=== PATIENT | female | born 1980 | race African-American/Black ===

== ENCOUNTER 2024-09-14 08:10 | Outpatient (CLI) | payer OTHER, SELFPAY ==
--- NOTE | ~2024-09-14 | MM_ITS ---
EXAMINATION: MM screening fabiola BI w yasmeen HISTORY: Screening TECHNIQUE: Craniocaudal and mediolateral oblique 3-D tomosynthesis images were obtained and synthetic 2-D images were generated. CAD analysis was submitted and interpreted. COMPARISON: No prior mammogram is available for comparison at this institution. BREAST PARENCHYMAL COMPOSITION: Dense: The breasts are heterogeneously dense, which may obscure small masses FINDINGS: There is a focal asymmetry in the lower central aspect of the right breast, middle third. T here is no mammographic evidence for malignancy in the left breast. IMPRESSION: 1. Focal asymmetry of the right breast. 2. Additional mammographic views and possible breast ultrasound are recommended. BI-RADS Category 0: Incomplete: Needs additional imaging evaluation. Reviewed, dictated and finalized at location [] S ETCHER IMPRESSION: 1. Focal asymmetry of the right breast. 2. Additional mammographic views and possible breast ultrasound are recommended . BI-RADS Category 0: Incomplete: Needs additional imaging evaluation.
--- OUTSIDE RECORDS SUMMARY | 2024-09-14 08:30 | XMS_ITS | Clinical Summary ---
Author Organization [facility] Address [address] [place] [address] Care Team Providers Care Emergency Department Director Name Role Phone Ye Hargrove MD Primary Care Provider Allergies No known active allergies Medications medroxyPROGEST ERone 150 mg/mL injection Inject 1 ml (150 mg) intramuscularly every 3 months 06/16/20 13 Active cromolyn (OPTICROM) 4 % ophthalmic solution INSTILL 1 DROP IN LEFT EYE FOUR TIMES DAILY FOR 1 WEEK Active HYDROcodone-ac etaminophen (NORCO) 5-325 mg per tablet TAKE 1 TAB PO Q 6HRS PRN PAIN Active metroNIDAZOLE (Vandazole) 0.75 % (37.5mg/5 gram) vaginal gel Active oxyCODONE-acet aminophen (PERCOCET) 5-325 mg per tablet Active penicillin v potassium (VEETID) 500 mg tablet Active acetaminophen- codeine (TYLENOL with CODEINE #3) 300-30 mg per tablet Take 1-2 tablets by mouth every 6 (six) hours as needed for pain 30 tablet 07/02/20 23 Active Active Problems Problem Noted Date Diagnosed Date Ganglion of wrist, right 06/16/2023 Excessive cerumen in ear canal 06/15/2023 Palpitations 06/15/2023 Cyst of both breasts 06/10/2023 Ganglion of right wrist 05/26/2023 Right wrist pain 05/26/2023 Bunion 12/17/2020 Hammer toe 12/17/2020 Foot pain 12/17/2020 Degenerative joint disease of hand 03/06/2020 High serum creatinine 03/06/2020 Genital herpes simplex 02/19/2018 Candidiasis of vagina 02/16/2018 Goiter 07/15/2017 Chest pain, unspecified 06/16/2013 Surgical History Surgery Date Site/Laterality Comments FOOT SURGERY Right bunyion with pins screws and wires SECTION WRIST MASS EXCISION 07/02/2023 Left Medical History Medical History Date Comments Heart murmur Miscarriage Social History Tobacco Use Types Packs/Day Years Used Date Smoking Tobacco: Never Smokeless Tobacco: Never AUDIT-C Answer Date Recorded Q1: How often do you have a drink containing alc ohol? 2-3 times a week 07/02/2023 Q2: How many drinks containi ng alcohol do you have on a typical day when you are drinking? 1 or 2 07/02/2023 Q3: How often do you have si x or more drinks on one occasion? Never 07/02/2023 Personal Safety Answer Date Recorded Have you ever been in or are you currently in a harmful physical or emotional relationship or is someone making you feel afraid or unsafe? 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 Gender Identity Not on file Sexual Orientation Not on file Obstetrics History Last Filed Vital Signs Vital Sign Reading Time Taken Comments Blood Pressure 130/92 07/02/2023 1:00 PM CNC MACHINE OPERATOR Pulse 82 07/02/2023 1:00 PM CNC MACHINE OPERATOR Temperature 36.8 C (98.3 F) 07/02/2023 12:30 PM CNC MACHINE OPERATOR Respiratory Rate 18 07/02/2023 1:00 PM CNC MACHINE OPERATOR Oxygen Saturation 97% 07/02/2023 1:00 PM CNC MACHINE OPERATOR Inhaled Oxygen Concentration - - Weight 64 kg (141 lb) 07/02/2023 8:44 AM CNC MACHINE OPERATOR Height 162.6 cm (5' 4 ) 07/02/2023 8:44 AM CNC MACHINE OPERATOR Body Mass Index 24.2 07/02/2023 8:44 AM CNC MACHINE OPERATOR Plan of Treatment Health Maintenance Due Date Last Done Comments Breast Cancer Screening-Mammogram 1979 Cervical Cancer Screening 1979 Colon Cancer Screening-Colonoscopy 1979 Depression Screening 1979 Hepatitis C Screening 1979 Hepatitis B Screening 1997 Regular Well Visit/Exam 18-64 1997 HPV Vaccines (2 - 3-dose SCDM series) 07/06/2018 06/08/2018 Covid-19 Vaccine ( season) 2024 01/28/2021, 01/01/2021 Influenza Vaccine (#1) 2024 3, 05/15/2021, 04/23/2020, Additional history exists DTaP/Tdap/Td Vaccine (5 - Td or Tdap) 09/14/2025 09/14/2015, 07/04/1988, 10/27/1986, Additional history exists Pneumococcal vaccine <65 Aged Out No longer eligible based on patient's age to complete this topic Insurance [facility] Care Teams Emergency Department Director Relationship Specialty Start Date End Date Ye Hargrove MD [address] [place] [address] PCP - General Internal Medicine 05/01/23
--- OUTSIDE RECORDS SUMMARY | 2024-09-14 08:30 | XMS_ITS | Data Portability ---
Author Organization [facility], Main Office Address [address] [place] [address] Care Team Providers Care Welder Apprentice Combination Name Role Phone DENISE GARCIA Primary Care Provider [phone] DENISE GARCIA Referring Provider [phone] Assessment Encounter Date Assessment Date Assessment LastModified by Organization Details LastModified Time 06/11/2023 06/11/2023 breast ultrasound were cysts around both breast right breast with slightly complex cyst. Do not suspect malignancy at this time. We will repeat ultrasound in 6 months to evaluate for growth and or changes [email or web address] Not available 06/11/2023 11:34:27 Plan of Treatment Reminders Order Date Submit Date Provider Last Modified By Organization Details Last Modified Time Details Appointments None record ed. Lab None record ed. Referral None record ed. Procedures None record ed. Surgeries None record ed. Imaging None record ed. Medication Orders None record ed. Patient TargetsNo targets recorded. Patient InstructionsNo instructions recorded. Reason for Referral None Reported. Results Created Date Observation Date Name Description Value Unit Range Abnormal Flag Note LastModifiedBy Organization Detail LastModifiedTime 05/31/2005/31/2021 URINE HCG QUAL/ POINT OF CARE ur preg negati ve TESTI NG PERFO RMED BY SURGI DEYSI SERVI TE PERSO NNEL. Not Available [facility] (Lab) [address] [place], [address], 05/31/2021 09:44:34 05/31/20 21 05/31/2021 URINE HCG QUAL/ POINT OF CARE lot no. [id number] Not Available [facility] (Lab) [address] [place], [address], 05/31/2021 09:44:34 05/31/20 21 05/31/2021 URINE HCG QUAL/ POINT OF CARE pos QC positi ve Not Available [facility] (Lab) [address] [place], [address], 05/31/2021 09:44:34 05/31/20 21 05/31/2021 URINE HCG QUAL/ POINT OF CARE neg QC negati ve Not Available [facility] (Lab) [address] [place], [address], 05/31/2021 09:44:34 06/17/20 21 07/02/2021 XR, foot, 3 or more view No observ ation record ed. [id number] [facility] [address], [address], [address], 10/01/2022 06:05:27 07/01/20 21 07/01/2021 XR, foot, 3 or more view No observ ation record ed. [id number] [facility] [address], [facility], [place], [address], 10/01/2022 06:05:27 07/15/20 21 07/15/2021 XR, foot, 3 or more view No observ ation record ed. [id number] [facility] [address], [facility], [place], [address], 10/01/2022 06:05:27 08/05/19 22 08/05/2021 XR, foot, 3 or more view No observ ation record ed. [id number] [facility] [address], [facility], [place], [address], 10/01/2022 06:05:27 Result Notes None recorded. Problems Name Problem SNOMED Code Status Onset Date Resolution Date Notes Provider Name and Address Organization Details Recorded Time Hammer toe 454125903 Active 2020 Not Available [facility] 3 05:58:39 Postoperat darrell visit 826924054 Active 2020 Not Available [facility] 3 05:58:39 Bunion 579439458 Active 2020 Not Available [facility] 3 05:58:39 Foot pain 18901027 Active 2020 Not Available [facility] 3 05:58:39 Cyst of left breast 1038068047925 9101 Active 2022 Mark gonsales MD [address], [address] , [employer] 3 12:58:38 Bilateral cyst of breasts 8254220176051 9102 Active 2022 Mark gonsales MD [address], [address] , [employer] 3 12:59:11 Problem Notes None recorded. Procedures Surgical History Date Name Laterality Status Provider Name and Address Organization Details Recorded Time section completed Katheryn Finnegan MA [employer] 06/11/2023 10:40:19 excision of bunion completed Katheryn Finnegan MA [facility] 06/11/2023 10:40:38 Imaging Results Imaging Date Name Status LastModified by Organiz ation Details LastModified Time 07/02/2021 XR, foot, 3 or more view completed [id number] 26 [facility] [address] [address], [place], [address], 10/01/2022 06:05:27 07/01/2021 XR, foot, 3 or more view completed [id number] [facility] [address] [address], [place], [address], 10/01/2022 06:05:27 07/15/2021 XR, foot, 3 or more view completed [id number] 26 [facility] [address], [facility], [place], [address], 10/01/2022 06:05:27 08/05/2021 XR, foot, 3 or more view completed [id number] [facility] [address], [facility], [place], [address], 10/01/2022 06:05:27 Procedure Notes None recorded. Medical Equipment None Reported. Allergies No known drug allergies Medications Name Sig Start Date Stop Date Status Note LastModified by Organization Details LastModified Time cyclobenzap rine 10 mg tablet 12/17 completed Not Available Not Available Not Available hydrocodone 5 mg-acetamin ophen 325 mg tablet TAKE 1 TAB PO Q 6HRS PRN PAIN active Not Available Not Available No t Available cromolyn 4 % eye drops INSTILL 1 DROP IN LEFT EYE FOUR TIMES DAILY FOR 1 WEEK active Not Available Not Available No t Available penicillin V potassium 500 mg tablet active Not Available Not Available Not Available sulfamethox azole 800 mg-trimetho prim 160 mg tablet 12/17 completed Not Available Not Available Not Available oxycodone-a cetaminophe n 5 mg-325 mg tablet active Not Available Not Available No t Available medroxyprog esterone 150 mg/mL intramuscul ar suspension Inject 1 ml (150 mg) intramusc ularly every 3 months active Not Available Not Available No t Available naproxen 500 mg tablet 12/17 completed Not Available Not Available Not Available Vandazole 0.75 % (37.5 mg/5 gram) vaginal gel active Not Available Not Available Not Available Vitals Date Recorded Body mass index (BMI) Body mass index (BMI) Body mass index (BMI) Body height Body height Body height Body height Heart rate Heart rate Heart rate Heart rate Body weight Body weight Body weight Systolic blood pressure Diastolic blood pressure Systolic blood pressure Diastolic blood pressure Systolic blood pressure Diastolic blood pressure Systolic blood pressure Diastolic blood pressure Provider Name and Address Organization Details Last Updated DateTime 3 23.2 kg/m2 23.2 kg/m2 23.2 kg/m2 162.56 cm 162.56 cm 162.56 cm 162.56 cm 69 /min 71 /min 76 /min 89 /min 16866.9 7 g 11420.9 7 g 41541.9 7 g 122 mm[Hg] 84 mm[Hg] 137 mm[Hg] 86 mm[Hg] 126 mm[Hg] 83 mm[Hg] 136 mm[Hg] 88 mm[Hg] Not Available [facility] 3 05:57:45 Date Recorded Body height Body mass index (BMI) Body weight Provider Name and Address Organization Details Last Updated DateTime 06/11/2023 157.48 cm 25.2 kg/m2 72884.75 g Katheryn Finnegan MA [employer] 06/11/2023 10:45:54 Date Recorded Respiratory rate Heart rate Body temperature Oxygen saturation Oxygen saturation in Arterial blood by Pulse oximetry Systolic blood pressure Diastolic blood pressure Provider Name and Address Organization Details Last Updated DateTime 3 14 /min 72 /min 97.7 [degF] 98 % 98 % 160 mm[Hg] 90 mm[Hg] Montserrat Garduno [employer] 3 11:10:57 Social History Question Answer Notes LastModified by Organizat ion Details LastModified Time Tobacco Smoking Status Never Smoker Not Available [facility] 10/01/2022 05:53:19 What Is Your Level Of Alcohol Consumption? None [id number] Information not available 10/01/2022 What Is Your Level Of Caffeine Consumption? Occasional Information not available 06/11/2023 What Type Of Diet Are You Following? REGULAR Information not available 06/11/2023 Are There Any Guns Present In Your Home? No Information not available 06/11/2023 How Many Children Do You Have? 2 Information not available 06/11/2023 What Is Your Relationship Status? Single Information not available 06/11/2023 Do You Have Smoke And Carbon Monoxide Detectors In Your Home? Yes Information not available 06/11/2023 Are You Passively Exposed To Smoke? No [place] [address] Information no t available 06/11/2023 Do You Use Any Illicit Or Recreational Drugs? No [place] [address] Information not available 06/11/2023 Do You Use Sunscreen Routinely? No [facility] Information not available 06/11/2023 Do You Have Any Dietary Restrictions? No [place] [address] Information not available 06/11/2023 Sex: Unknown Functional Status Question Answer Note LastModified by Organizat ion Details LastModified Time What is your exercise level? Occasional [facility] Information not available 06/11/2023 Mental Status None recorded. Family History Relationship Description Onset Age of this Age Resolved Age Notes LastModified by Organization Details LastModified Time Maternal Grandmother Diabetes mellitus [place] [id number] Not available 2022 10:43:20 Maternal Aunt Carcinoma in situ of colon [facility] Not available 2022 10:44:12 Medical History Condition Response ARTHRITIS Y Gynecological HistoryNo gynecological history recorded. Obstetrics History GPAL:G 0 P 0 0 0 0 Past Encounters Encounter ID Performer Location Encounter Start Date Encounter Closed Date Diagnosis/Indication Diagnosis SNOMED-CT Code Diagnosis ICD10 Code Diagnosis Note [id number] [facility] [place] [address] [place] [address], [address] [address] 12/17/2020 00:00:00 12/17/2020 12:04:06 [id number] [facility] [address] [place] [address], [address] [address] 01/10/2021 00:00:00 01/10/2021 11:57:50 [id number] [facility] [place] [address] [place] [address], [address] [address] 01/31/2021 00:00:00 02/17/2021 20:08:05 [id number] [facility] [place] [address] [place] [address], [address] [address] 05/06/2021 00:00:00 05/13/2021 07:11:51 [id number] _ATHENA_M IGRATION_ DEFAULT_1 _1 , 06/03/2021 00:00:00 06/03/2021 15:08:12 [id number] [facility] [place] [address], [facility] [address] [place] [address] 06/10/2021 00:00:00 06/10/2021 10:39:43 [id number] [facility] [place] [address], [facility] [address] [place] [address] 06/17/2021 00:00:00 07/02/2021 20:27:44 [id number] [facility] [place] [address], [facility] [address] [place] [address] 07/01/2021 00:00:00 07/01/2021 10:26:20 [id number] [facility] [place] [address], [address] [address] 07/15/2021 00:00:00 07/15/2021 10:08:21 [id number] [facility] [place] [address], [facility] [address] [place] [address] 08/05/2021 00:00:00 08/05/2021 12:15:27 [id number] Mark gonsales MD [facility] [address] [facility], [address] [address] 06/11/2023 10:35:35 06/11/2023 14:47:46 Bilateral cyst of breasts 9274365309 4941347 N60.01 N60.02 Health Concerns Section Related Observation LastModified by Organization Detai ls LastModified Time None Recorded Concern Status LastModified by Organization Details LastModified Time None Recorded Advance Directives Directive None Recorded Payers Encounter Date Sequence Insurance Name Policy Number Policy Crawley Covered Member ID Crawley Member ID Guarantor Name 06/11/2023 1 [facility] (MEDICAID HMO) [id number] Angie Shah [id number] Angie Shah Notes Date Note Type Note Provider Name and Address Organization Details Recorded Time 06/11/2023 text/html patient referred by primary care physician for presumably abnormal breast ultrasound and or mammogram. Patient denies any lumps or bumps. Denies any family history of breast cancer. Denies any previous biopsies. Denies any breast pain Mark Hernandez MD [address] [address], [place], [address], [facility] 06/11/2023 12:59:29 OBGyn Episode No OBEpisode recorded.
--- OUTSIDE RECORDS SUMMARY | 2024-09-14 08:30 | XMS_ITS | CONTINUITY OF CARE DOCUMENT ---
Author Name nicolas valenzuela Address Unknown Organization [facility] Address [address] [facility] [address] [place] [address] Phone [phone] Care Team Providers Care Ribbon Hand Name Role Phone James Preston MD Unavailable DENISE GARCIA MD Unavailable [phone] DENISE GARCIA MD Unavailable PROBLEMS Condition Status Date Provider Notes Family History of Sudden Cardiac : active ? James Preston MD Family History of CVA or Stroke: active ? Janine Preston MD PALPITATIONS active ? James Preston MD HISTORY OF DRUG ABUSE- OCCASSIONAL POT active ? James Presotn MD CHEST PAIN UNSPECIFIED active James Preston MD ENCOUNTERS Date Type Provider Location Encounter Diag nosis - In-person encounter Office Visit James Preston MD [facility] - In-person encounter Office Visit James Preston MD [facility] Family History of CVA or Stroke:Family History of Sudden Cardiac : - In-person encounter Office Visit James Preston MD [facility] CHEST PAIN UNSPECIFIEDHISTORY OF DRUG ABUSE- OCCASSIONAL POTPALPITATIONS VITAL SIGNS Date Observation Value Provider Body Mass Index (Ratio) 21.16 kg/m2 Bailey Preston MD blood pressure, diastolic 91 mm[Hg] Jonny Stuart blood pressure, systolic 137 mm[Hg] Ashia Stuart oxygen saturation, oximetry 97 % Mars Stuart respiratory rate E&M 18 /min Sarah Beth Stuart pulse rate 60 /min Mars paul weight E&M 127.2 [lb_av] Mars raza height E&M 65 [in_i] Mars paul Body Mass Index (Ratio) 20.47 kg/m2 Bailey Preston MD blood pressure, cuff size regular Ke rri Demi blood pressure, diastolic 94 mm[Hg] Ke rri Demi blood pressure, systolic 132 mm[Hg] Cherelle ri Demi oxygen saturation, oximetry 98 % Monse Simms respiratory rate E&M 16 /min Monse Anthony hall pulse rate 64 /min Monse Dominga christineer weight E&M 123 [lb_av] Monse Dominga christineer height E&M 65 [in_i] Monse Dominga christineer blood pressure, diastolic 84 mm[Hg] Ta carter Stolya blood pressure, systolic 114 mm[Hg] Lundy alem Stueber Body Mass Index (Ratio) 22.55 kg/m2 Mccormick i Demi blood pressure, diastolic 97 mm[Hg] Ke rri Demi blood pressure, systolic 136 mm[Hg] Cherelle ri Demi pulse rate 69 /min Monse Nenae emmetter oxygen saturation, oximetry 99 % Monse Demi respiratory rate E&M 15 /min Monse G isabel weight E&M 135 [lb_av] Monse Dominga christineer height E&M 65 [in_i] Monse Orr lder ALLERGIES No Known Drug Allergies RESULTS Date Observation Value Provider Reference Range Interpretation Location thyroid stimulating hormone, serum 0.500 u[IU]/[facility] platelet count 221 10*3/mm3 [facility] hematocrit, blood 40.7 % [facility] triglyceride, serum, fasting 40 mg/dL [facility] HDL cholesterol, serum 57 mg/dL [facility] lipoprotein, beta, serum, point, quantitative, calculated 77 mg/dL [facility] cholesterol, serum 142 mg/dL [facility] alanine aminotransferase (SGPT), serum 8 1/L [facility] aspartate aminotransferase (SGOT), serum 16 1/L [facility] creatinine, serum 0.91 mg/dL [facility] Chaitanya potassium, serum 4.6 mmol/L [facility] sodium, serum 140 mmol/L [facility] HISTORY OF MEDICATION USE Medication Status Instructions Dates Provider Indications Com ments DEPO-PROVERA 150 MG/ML INTRAMUSCULAR SUSPENSION active once every 3 months Monse Simms SOCIAL HISTORY Date Observation Value Provider social history reviewed E&M revi ewed - no changes required James Preston MD physical exercise, f requency, days per week yes Mars Stuart alcohol use no Mars paul caffeine use, averag e drinks per day yes Mars Stuart drug use no Mars paul passive cigarette sm riley exposure no Mars Stuart smoking status Never smoker Mars Correia number of grandchildren James Preston MD U deandra Preston MD social history reviewed E&M revi ewed - no changes required James Preston MD physical exercise, f requency, days per week yes Monse Simms alcohol use no Monse Orr lder caffeine use, averag e drinks per day yes Monse Rowlandmargobernierosa elenaed drug use no Monse Orr lder passive cigarette sm riley exposure no Monse Simms smoking status Never smoker Monse hoover smoking status never Ashleigh Lopez physical exercise, f requency, days per week yes James Preston MD social history E&M Marital Statu s: Single h ousekeeping James Preston MD caffeine use, averag e drinks per day yes Artem Jackson RN social history reviewed E&M reviewed Artem Jackson RN drug use no Monse Rowlandmargoshaina laura passive cigarette sm riley exposure no Monse Rowlandfrida smoking status never smoker Monse Dwight hoover FUNCTIONAL STATUS Date Observation Value Provider periodic limb movement index absent (0) James Preston MD MENTAL STATUS Date Observation Value Provider assessment of judgme nt and insight E&M Alert and oriented to time, place and person. Mood and affect are normal. Artem Jackson RN FAMILY HISTORY Family Member Condition Father Family History Unkno wn Mother Family History of Arevalo dden Cardiac : Mother Family History of CV A or Stroke: INSURANCE PROVIDERS Payer name Policy type / Coverage type [facility] ID HEALTHCARE AND FAMILY SERVICES Medicaid 0 [id number] ADVANCE DIRECTIVES Name Date DISCUSSED - NO DECISION MADE TREATMENT PLAN Date Name Performer Cardiology James Preston MD Cardiology:Holter wa s benign, and echo showed no significant abnormality. She is working at reducing her stress, which I think is the best option. James Preston MD Cardiology Follow up :Will do holter and echo and will try to obtain labs from Dr. Garcia's office. James Preston MD Cardiology Follow up :Has stoppe d James Preston MD New Patient: B P today: 136/97 Prior BP: / () b p at dr garcia's office was 132/70 James Preston MD New Patient: O rders: E KG ([id number]) BP today: 136/97 Prior BP: / () James Preston MD Date Name Complete Echo Holter Monitor 24 Hr Complete Echo STR - Routine HISTORY OF PROCEDURES Procedure Date Procedure Name Provider Procedure Notes S tatus SNOMED-CT: 60794760 Physical Exam, Performed: Pulse Exam of Foot James Preston MD completed SNOMED-CT: 671439166 352378 Current Medications Documented James Preston MD completed ZIO Holter Hookup Jaems Preston MD co mpleted SNOMED-CT: 81859816 Physical Exam, Performed: Pulse Exam of Foot James Preston MD completed EKG James Preston MD completed SNOMED-CT: 850854419 101636 Current Medications Documented James Preston MD completed EKG James Preston MD completed
--- OUTSIDE RECORDS SUMMARY | 2024-09-14 08:30 | XMS_ITS | Referral Summary ---
Author Organization [facility] Address [address] [place] [address] Care Team Providers Care Plant Technician Name Role Phone Ye Hargrove MD Primary [...] 02/16/2018 Goiter 07/15/2017 Chest pain, unspecified 06/16/2013 Social History Tobacco Use Types Packs/Day Years [...] on file Legal Sex Female 8:53 PM [employer] Gender Identity Not on file Sexual Orientation Not on file Last Filed Vital Signs Vital Sign Reading Time Taken Comments Blood Pressure 130/92 07/02/2023 1:00 PM [employer] Pulse 82 07/02/2023 1:00 PM [employer] Temperature 36.8 C (98.3 F) 07/02/2023 12:30 PM [employer] Respiratory Rate 18 07/02/2023 1:00 PM [employer] Oxygen Saturation 97% 07/02/2023 1:00 PM [employer] Inhaled Oxygen Concentration - - Weight 64 kg (141 lb) 07/02/2023 8:44 AM [employer] Height 162.6 cm (5' 4 ) 07/02/2023 8:44 AM [employer] Body Mass Index 24.2 07/02/2023 8:44 AM [employer] Plan of Treatment Not on file Insurance [facility] Care Teams Plant Technician Relationship Specialty Start Date End Date Ye Hargrove MD [phone] [id number] PCP - General Internal Medicine 05/01/23
--- OUTSIDE RECORDS SUMMARY | 2024-09-14 08:30 | XMS_ITS | Data Portability ---
Author Organization [facility] SRIRAMUche Lam Address [address] [place] [address] Care Team Providers Care Customer Engagement Representative Name Role Phone ELISABETH BRAMBILA Corporate Health Consultant SOBEIDA ROGER Auto Service Advisor Unavailable YE GARCIA Primary Care Provider [phone] Assessment Encounter Date Assessment Date Assessment LastModified by Organization Details LastModified Time 05/19/2024 05/19/2024 44 yr old here for depot shot, no acute concerns or complaints augabi Not available 05/24/2024 15:27:55 Plan of Treatment Reminders Order Date Submit Date Provider Last Modified By Organization Details Last Modified Time Details Appointments ANY 15 2024 10:00A M Ye Garcia MD Not available Not available Not available NURSE ONLY 2024 08:45A M Unassigned Not available Not available Not available Lab HbA1c (hemogl obin A1c), blood 2023 024 [facility], [address] [place] [address], [address], [place], [address], 12/02/2023 06:18:32 pregnan cy test, urine 2023 024 [email or web address] In-Office Order, Internal Use Only DO Not Attach Compendium DO Not Attach Compendium, Do Not Delete/merge, [id number] 05/23/2024 07:50:27 pregnan cy test, urine 2024 025 [email or web address] In-Office Order, Internal Use Only DO Not Attach Compendium DO Not Attach Compendium, Do Not Delete/merge, [id number] 08/12/2024 12:38:31 HbA1c (hemogl obin A1c), blood 2024 025 [facility], [address], [address], [place], [address], 09/01/2024 08:23:49 CMP, serum or plasma 2024 025 [facility], [address], [address], [place], [address], 09/01/2024 08:23:47 CBC w/ auto diff 2024 025 [facility], [address], [address], [place], [address], 09/01/2024 08:23:52 lipid panel, serum 2024 025 [facility], [address], [address], [place], [address], 09/01/2024 08:23:46 vitamin D, 25-hydr oxy, total, serum 2024 025 [facility], [address], [address], [place], [address], 09/01/2024 08:23:53 urinaly sis, complet e 2024 025 [facility], [address], [address], [place], [address], 09/01/2024 08:23:51 Referral None recorde d. Procedures None recorde d. Surgeries None recorde d. Imaging US, breast, unilate ral - Bilater al cysts 2023 024 [facility]), [address] [place], [address], 01/26/2024 11:07:13 MAMMO, screeni ng, tony darrin - Screeni ng MMG, please. Hx of tony darrin duffy ated breast cysts [address] [facility], [address], [place] [address], [place], [address], 09/12/2024 12:26:06 Medication Orders medroxy progest erone 150 mg/mL intramu scular syringe 2023 024 [place] [address] [facility], [address] [place] [address], [id number], 02/25/2024 05:52:07 medroxy progest erone 150 mg/mL intramu scular suspens ion 2023 024 [facility], [address] [place] [address], [id number], 08/11/2024 09:44:31 medroxy progest erone 150 mg/mL intramu scular syringe 2024 025 [email or web address] [facility], [address] [place] [address], [id number], 08/12/2024 12:38:31 Patient TargetsNo targets recorded. Patient Instructions Encounter Date Encounter Id Patient Instructions Last Modified By Organization Details Last Modified Time 12/01/2023 [id number] prediabetes: car e instructions oajao Not available 12/01/2023 10:13:[address] Workman DM diet Follow up in 6 months and PRN oaterrello Not available 12/01/2023 10:14:44 05/19/2024 [id number] On the date of this encounter, I was immediately available to assist the resident/fellow in the care of the patient, and have reviewed and agree with the resident s findings and plan of care. ~MD Cher [facility] Not available 05/29/2024 19:55:15 08/12/2024 [id number] Labs MMG at [facility] in ~ 6 weeks oajao Not available 08/12/2024 12:40:34 Reason for Referral None Reported. Results Created Date Observation Date Name Description Value Unit Range Abnormal Flag Note LastModifiedBy Organization Detail LastModifiedTime 11/23/19 24 11/23/2023 pregn essence test, urine HCG negati ve Not Available In-Office Order Internal Use Only DO Not Attach Compendium DO Not Attach Compendium, Do Not Delete/merge, [id number] 11/23/2023 11:05:01 12/01/19 24 12/02/2023 HEMOG LOBIN A1C hemoglobin A1C 5.9 % 4.8-5. 6 above high normal Predi abete s: 5.7 - 6.4 Diabe fatimah: >6.4 Glyce rosario contr ol for adult s with diabe fatimah: <7.0 Not Available [facility] ([facility]) [address] [facility], [place], [address], 12/02/2023 06:18:32 05/19/20 24 05/19/2024 pregn essence test, urine HCG negati ve Not Available In-Office Order Internal Use Only DO Not Attach Compendium DO Not Attach Compendium, Do Not Delete/merge, [id number] 05/19/2024 10:30:41 08/11/19 25 08/11/2024 pregn essence test, urine HCG negati ve Not Available In-Office Order Internal Use Only DO Not Attach Compendium DO Not Attach Compendium, Do Not Delete/merge, [id number] 08/11/2024 10:06:05 08/31/19 25 09/01/2024 LIPID PANEL cholesterol, total 126 mg/dL 100-19 9 Not Available [facility] ([facility]) [address] [facility], [place], [address], 09/01/2024 08:23:46 08/31/19 25 09/01/2024 LIPID PANEL triglyceride s 67 mg/dL 0-149 Not Available [facility] ([facility]) [address] [facility], [place], [address], 09/01/2024 08:23:46 08/31/19 25 09/01/2024 LIPID PANEL HDL cholesterol 38 mg/dL >39 below low normal Not Available [facility] ([facility]) [address] [place], [address], 09/01/2024 08:23:46 08/31/19 25 09/01/2024 LIPID PANEL VLDL cholesterol maria guadalupe 14 mg/dL 5-40 Not Available [facility] ([facility]) [address] [place], [address], 09/01/2024 08:23:46 08/31/19 25 09/01/2024 LIPID PANEL LDL chol calc ([facility]) 74 mg/dL 0-99 Not Available [facility]) [address] [place], [address], 09/01/2024 08:23:46 08/31/19 25 09/01/2024 COMP. METAB OLIC PANEL (14) glucose 88 mg/dL 70-99 Not Available [facility] ([facility]) [address] [place], [address], 09/01/2024 08:23:47 08/31/19 25 09/01/2024 COMP. METAB OLIC PANEL (14) BUN 11 mg/dL 6-24 Not Available [facility] ([facility]) [address] [place], [address], 09/01/2024 08:23:47 08/31/19 25 09/01/2024 COMP. METAB OLIC PANEL (14) creatinine 1.23 mg/dL 0.57-1 .00 above high normal Not Available [facility] ([facility]) [address] [place], [address], 09/01/2024 08:23:47 08/31/19 25 09/01/2024 COMP. METAB OLIC PANEL (14) eGFR 55 mL/mi n/1.7 3 >59 below low normal Not Available [facility] ([facility]) [address], [place], [address], 09/01/2024 08:23:47 08/31/19 25 09/01/2024 COMP. METAB OLIC PANEL (14) BUN/creatini ne ratio 9 9-23 Not Available [facility] ([facility]) [address], [place], [address], 09/01/2024 08:23:47 08/31/19 25 09/01/2024 COMP. METAB OLIC PANEL (14) sodium 140 mmol/ L 134-14 4 Not Available [facility] ([facility]) [address] [facility], [place], [address], 09/01/2024 08:23:47 08/31/19 25 09/01/2024 COMP. METAB OLIC PANEL (14) potassium 4.6 mmol/ L 3.5-5. 2 Not Available [facility] ([facility]) [address] [facility], [place], [address], 09/01/2024 08:23:47 08/31/19 25 09/01/2024 COMP. METAB OLIC PANEL (14) chloride 106 mmol/ L 96-106 Not Available [facility] ([facility]) [address] [facility], [place], [address], 09/01/2024 08:23:47 08/31/19 25 09/01/2024 COMP. METAB OLIC PANEL (14) carbon dioxide, total 22 mmol/ L 20-29 Not Available [facility] ([facility]) [address] [facility], [place], [address], 09/01/2024 08:23:47 08/31/19 25 09/01/2024 COMP. METAB OLIC PANEL (14) calcium 9.0 mg/dL 8.7-10 .2 Not Available [facility] ([facility]) [address] [facility], [place], [address], 09/01/2024 08:23:47 08/31/19 25 09/01/2024 COMP. METAB OLIC PANEL (14) protein, total 6.5 g/dL 6.0-8. 5 Not Available [facility] ([facility]) [address], [place], [address], 09/01/2024 08:23:47 08/31/19 25 09/01/2024 COMP. METAB OLIC PANEL (14) albumin 4.4 g/dL 3.9-4. 9 Not Available [facility] ([facility]) [address], [place], [address], 09/01/2024 08:23:47 08/31/19 25 09/01/2024 COMP. METAB OLIC PANEL (14) globulin, total 2.1 g/dL 1.5-4. 5 Not Available [facility] ([facility]) [address], [place], [address], 09/01/2024 08:23:47 08/31/19 25 09/01/2024 COMP. METAB OLIC PANEL (14) bilirubin, total 0.2 mg/dL 0.0-1. 2 Not Available [facility] ([facility]) [address], [place], [address], 09/01/2024 08:23:47 08/31/19 25 09/01/2024 COMP. METAB OLIC PANEL (14) alkaline phosphatase 46 IU/L 44-121 Not Available [facility]) [address], [place], [address], 09/01/2024 08:23:47 08/31/19 25 09/01/2024 COMP. METAB OLIC PANEL (14) AST (SGOT) 18 IU/L 0-40 Not Available [facility] ([facility]) [address] [facility], [place], [address], 09/01/2024 08:23:47 08/31/19 25 09/01/2024 COMP. METAB OLIC PANEL (14) ALT (SGPT) 12 IU/L 0-32 Not Available [facility] ([facility]) [address] [facility], [place], [address], 09/01/2024 08:23:47 08/31/19 25 09/01/2024 MICRO SCOPI C EXAMI NATIO N WBC None seen /hpf 0-5 Not Available [facility] ([facility]) [address] [facility], [place], [address], 09/01/2024 08:23:49 08/31/19 25 09/01/2024 MICRO SCOPI C EXAMI NATIO N RBC 0-2 /hpf 0-2 Not Available [facility] ([facility]) [address] [facility], [place], [address], 09/01/2024 08:23:49 08/31/19 25 09/01/2024 MICRO SCOPI C EXAMI NATIO N epithelial cells (non renal) 0-10 /hpf 0-10 Not Available [facility] ([facility]) [address] [facility], [place], [address], 09/01/2024 08:23:49 08/31/19 25 09/01/2024 MICRO SCOPI C EXAMI NATIO N casts None seen /lpf nonese en Not Available [facility] ([facility]) [address] [facility], [place], [address], 09/01/2024 08:23:49 08/31/19 25 09/01/2024 MICRO SCOPI C EXAMI NATIO N bacteria None seen nonese en/few Not Available [facility] ([facility]) [address] [facility], [place], [address], 09/01/2024 08:23:49 08/31/19 25 09/01/2024 HEMOG LOBIN A1C hemoglobin A1C 5.9 % 4.8-5. 6 above high normal Predi abete s: 5.7 - 6.4 Diabe fatimah: >6.4 Glyce rosario contr ol for adult s with diabe fatimah: <7.0 Not Available [facility] ([facility]) [address] [facility] [place], [address], 09/01/2024 08:23:49 08/31/19 25 09/01/2024 URINA LYSIS , COMPL ETE specific gravity 1.028 1.005- 1.030 Not Available [facility] ([facility]) [address] [facility] [place], [address], 09/01/2024 08:23:51 08/31/19 25 09/01/2024 URINA LYSIS , COMPL ETE pH 6.0 5.0-7. 5 Not Available [facility] ([facility]) [address] [place], [address], 09/01/2024 08:23:51 08/31/19 25 09/01/2024 URINA LYSIS , COMPL ETE urine-color YELLOW yellow Not Available [facility]) [address] [place], [address], 09/01/2024 08:23:51 08/31/19 25 09/01/2024 URINA LYSIS , COMPL ETE appearance CLEAR clear Not Available [facility] ([facility]) [address] [place], [address], 09/01/2024 08:23:51 08/31/19 25 09/01/2024 URINA LYSIS , COMPL ETE WBC esterase NEGATI VE negati ve Not Available [facility] ([facility]) [address] [place], [address], 09/01/2024 08:23:51 08/31/19 25 09/01/2024 URINA LYSIS , COMPL ETE protein TRACE negati ve/tra ce Not Available [facility] ([facility]) [address] [place], [address], 09/01/2024 08:23:51 08/31/19 25 09/01/2024 URINA LYSIS , COMPL ETE glucose NEGATI VE negati ve Not Available [facility] ([facility]) [address] [place], [address], 09/01/2024 08:23:51 08/31/19 25 09/01/2024 URINA LYSIS , COMPL ETE ketones TRACE negati ve abnormal Not Available [facility] ([facility]) [address] [place], [address], 09/01/2024 08:23:51 08/31/19 25 09/01/2024 URINA LYSIS , COMPL ETE occult blood NEGATI VE negati ve Not Available [facility] ([facility]) [address] [place], [address], 09/01/2024 08:23:51 08/31/19 25 09/01/2024 URINA LYSIS , COMPL ETE bilirubin NEGATI VE negati ve Not Available [facility] ([facility]) [address] [place], [address], 09/01/2024 08:23:51 08/31/19 25 09/01/2024 URINA LYSIS , COMPL ETE urobilinogen ,semi-qn 1.0 mg/dL 0.2-1. 0 Not Available [facility] ([facility]) [address] [place], [address], 09/01/2024 08:23:51 08/31/19 25 09/01/2024 URINA LYSIS , COMPL ETE nitrite, urine NEGATI VE negati ve Not Available [facility] ([facility]) [address] [place], [address], 09/01/2024 08:23:51 08/31/19 25 09/01/2024 URINA LYSIS , COMPL ETE microscopic examination COMMEN T Micro scopi c follo ws if indic ated. Not Available [facility] ([facility]) [address] [facility], [place], [address], 09/01/2024 08:23:51 08/31/19 25 09/01/2024 URINA LYSIS , COMPL ETE microscopic examination SEE BELOW: Micro robinson c was indic ated and was perfo rmed. Not Available [facility] ([facility]) [address] [facility], [place], [address], 09/01/2024 08:23:51 08/31/19 25 08/31/2024 CBC WITH DIFFE RENTI AL/PL ATELE T WBC 6.8 x10e3 /uL 3.4-10 .8 Not Available [facility] ([facility]) [address] [facility], [place], [address], 09/01/2024 08:23:52 08/31/19 25 08/31/2024 CBC WITH DIFFE RENTI AL/PL ATELE T RBC 4.03 x10e6 /uL 3.77-5 .28 Not Available [facility] ([facility]) [address] [facility], [place], [address], 09/01/2024 08:23:52 08/31/1908/31/2024 CBC WITH DIFFE RENTI AL/PL ATELE T hemoglobin 12.9 g/dL 11.1-1 5.9 Not Available [facility] ([facility]) [address] [place], [address], 09/01/2024 08:23:52 08/31/1908/31/2024 CBC WITH DIFFE RENTI AL/PL ATELE T hematocrit 39.7 % 34.0-4 6.6 Not Available [facility] ([facility]) [address] [facility], [place], [address], 09/01/2024 08:23:52 08/31/19 25 08/31/2024 CBC WITH DIFFE RENTI AL/PL ATELE T MCV 99 fL 79-97 above high normal Not Available [facility] ([facility]) [address] [place], [address], 09/01/2024 08:23:52 08/31/19 25 08/31/2024 CBC WITH DIFFE RENTI AL/PL ATELE T MCH 32.0 pg 26.6-3 3.0 Not Available [facility] ([facility]) [address] [facility], [place], [address], 09/01/2024 08:23:52 08/31/19 25 08/31/2024 CBC WITH DIFFE RENTI AL/PL ATELE T MCHC 32.5 g/dL 31.5-3 5.7 Not Available [facility] ([facility]) [address] [facility], [place], [address], 09/01/2024 08:23:52 08/31/19 25 08/31/2024 CBC WITH DIFFE RENTI AL/PL ATELE T RDW 11.7 % 11.7-1 5.4 Not Available [facility] ([facility]) [address] [place], [address], 09/01/2024 08:23:52 08/31/19 25 08/31/2024 CBC WITH DIFFE RENTI AL/PL ATELE T platelets 228 x10e3 /uL 150-45 0 Not Available [facility] ([facility]) [address] [facility], [place], [address], 09/01/2024 08:23:52 08/31/19 25 08/31/2024 CBC WITH DIFFE RENTI AL/PL ATELE T neutrophils 40 % notest ab. Not Available [facility] ([facility]) [address] [place], [address], 09/01/2024 08:23:52 08/31/19 25 08/31/2024 CBC WITH DIFFE RENTI AL/PL ATELE T lymphs 52 % notest ab. Not Available [facility] ([facility]) [address] [facility], [place], [address], 09/01/2024 08:23:52 08/31/19 25 08/31/2024 CBC WITH DIFFE RENTI AL/PL ATELE T monocytes 7 % notest ab. Not Available [facility] ([facility]) [address] [facility], [place], [address], 09/01/2024 08:23:52 08/31/19 25 08/31/2024 CBC WITH DIFFE RENTI AL/PL ATELE T eos 1 % notest ab. Not Available [facility] ([facility]) [address] [facility], [place], [address], 09/01/2024 08:23:52 08/31/19 25 08/31/2024 CBC WITH DIFFE RENTI AL/PL ATELE T basos 0 % notest ab. Not Available [facility] ([facility]) [address] [facility], [place], [address], 09/01/2024 08:23:52 08/31/19 25 08/31/2024 CBC WITH DIFFE RENTI AL/PL ATELE T neutrophils (absolute) 2.7 x10e3 /uL 1.4-7. 0 Not Available [facility] ([facility]) [address] [place], [address], 09/01/2024 08:23:52 08/31/19 25 08/31/2024 CBC WITH DIFFE RENTI AL/PL ATELE T lymphs (absolute) 3.5 x10e3 /uL 0.7-3. 1 above high normal Not Available [facility] ([facility]) [address] [facility] [place], [address], 09/01/2024 08:23:52 08/31/19 25 08/31/2024 CBC WITH DIFFE RENTI AL/PL ATELE T monocytes(ab solute) 0.5 x10e3 /uL 0.1-0. 9 Not Available [facility] ([facility]) [address] [facility], [place], [address], 09/01/2024 08:23:52 08/31/19 25 08/31/2024 CBC WITH DIFFE RENTI AL/PL ATELE T eos (absolute) 0.1 x10e3 /uL 0.0-0. 4 Not Available [facility] ([facility]) [address] [facility], [place], [address], 09/01/2024 08:23:52 08/31/19 25 08/31/2024 CBC WITH DIFFE RENTI AL/PL ATELE T baso (absolute) 0.0 x10e3 /uL 0.0-0. 2 Not Available [facility] ([facility]) [address] [facility], [place], [address], 09/01/2024 08:23:52 08/31/19 25 08/31/2024 CBC WITH DIFFE RENTI AL/PL ATELE T immature granulocytes 0 % notest ab. Not Available [facility] ([facility]) [address] [facility], [place], [address], 09/01/2024 08:23:52 08/31/1908/31/2024 CBC WITH DIFFE RENTI AL/PL ATELE T immature grans (abs) 0.0 x10e3 /uL 0.0-0. 1 Not Available [facility] ([facility]) [address] [facility], [place], [address], 09/01/2024 08:23:52 08/31/1909/01/2024 VITAM IN D, 25-HY DROXY vitamin D, 25-hydroxy 6.7 NG/mL 30.0-1 00.0 below low normal Vitam in D defic iency has been defin ed by the Insti tute of Medic ine and an Endoc rine Socie ty pract ice guide line as a level of serum 25-OH vitam in D less than 20 ng/mL (1,2) . The Endoc rine Socie ty went on to furth er defin e vitam in D insuf ficie ncy as a level betwe en 21 and 29 ng/mL (2). 1. IOM (Inst itute of Medic ine). 2009. Dieta ry refer ence intak es for calci um and D. Isabela guzman [place]: [facility] . 2. Rochelle emerson MF, Unique garza [place], Kate off-F errar i MEDINA, et al. Evalu ation , treat ment, and preve ntion of vitam in D defic iency : an Endoc rine Socie ty clini maria guadalupe pract ice guide line. JCEM. 2010; 96(7) :1911 -30. Not Available [facility] ([facility]) [address] [facility], [place], [address], 09/01/2024 08:23:53 12/08/19 24 12/08/2023 US, lev amin No observ ation record ed. [facility] [address] [place], [address], 08/12/2024 12:33:14 Result Notes None recorded. 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 05972118 Completed 201705/24/2024 Allegra [place] MD Attn: Accounting ,[address] [place], [address] , [facility] 4 15:08:19 Hyperthyr oidism 44740414 Active 2017 Allegra [place] MD Attn: Accounting ,[address] [place], [address] , [facility] 4 15:08:50 Genital herpes simplex 02147950 Active 2017 Not Available [facility] 3 00:16:51 Degenerat darrell joint disease of hand 30999185 Completed 201905/24/2024 Allegra [place] MD Attn: Accounting ,[address] [place], [place], [address] [place] [address] , [place] [facility] 4 15:08:24 Serum creatinin e above reference range 331076343 Active 2019 Not Available [facility] 3 00:16:51 Group B Streptoco ccus carrier 57124647276 03 Completed 202005/24/2024 Allegra [place] MD Attn: Accounting ,[address] [place], [place], [address] [place] [address] , [place] - [facility] 4 15:08:34 History of hyperthyr oidism 556161499 Active 2020 Allegra Chapin MD Attn: Accounting ,[address] [place], [place], [address] [place] [address] , [facility] 4 15:08:43 SARS-CoV- 2 mRNA vaccine declined 2382521254 Active 2021 Not Available [facility] 3 00:16:50 Impaired fasting glycemia 788641294 Active 2024 Ye Garcia MD Attn: Accounting ,[address] [place], [place], [address] [place] [address] , [place] - [facility] 5 12:26:44 Excessive cerumen in ear canal 529141136 Completed 02/16/2018 Salazar yip [place] - [facility] 8 10:44:07 Palpitati ons 08056164 Completed 02/16/2018 [place] yip [place] - [facility] 8 10:44:02 Problem Notes None recorded. Procedures Surgical History Date Name Laterality Status Provider Name and Address Organization Details Recorded Time 3 Date of Last Mammogram completed Hillary Bazan [place] - [facility] 06/16/2023 09:14:34 1 excision of bunion completed Barbysherri Bradley [place] [facility] 11/28/2021 09:59:40 1 Date of Last Pap Smear completed Hillary Bazan [place] [facility] 04/18/2022 10:50:06 1 Depo Injection completed Lashaun Hay [place] [facility] 08/24/2020 16:33:19 0 Depo Injection completed Lashaun Hay [place] [facility] 04/27/2020 15:10:14 0 Depo Injection completed Lashaun Hay [place] [facility] 10/07/2019 16:57:24 9 Depo Injection completed Lashaun Hay [place] [facility] 04/15/2019 11:41:44 9 Depo Injection completed Lashaun Hay [place] [facility] 08/06/2018 16:08:42 8 Depo Injection completed Lashaun Hay [place] [facility] 05/14/2018 15:51:28 7 Depo Injection completed Shila Davey [place] [facility] 03/20/2017 15:52:17 delivery completed Ye Garcia MD Attn: Accounting,[address] [place], [address], [facility] 09/13/2018 17:01:07 Imaging Results Imaging Date Name Status LastModified by Organiz ation Details LastModified Time 12/08/2023 US, breast, bilateral completed [facility] [address] [place], [address], 08/12/2024 12:33:14 Procedure Notes None recorded. Medical Equipment None Reported. Allergies Allergen ID Allergen Name Allergen Category Reaction Reaction Severity Criticality Documentation Date Start Date Code Code System Note Provider Name and Address Organization Details Recorded Time 368670 No known allergy (situatio n) Not available Not available Not available Not available 06/02/2023 24314 [id number] SNOMED Not Available Not Available Not Available No known drug allergies Medications Name Sig Start Date Stop Date Status Note LastModified by Organization Details LastModified Time multivita min tablet Take 1 tablet every day by oral route. 12/31 completed Not Available Not Available Not Available cyclobenz aprine 10 mg tablet 11/22 completed Not Available Not Available Not Available Mapap Extra Strength 500 mg tablet 1000 mg by oral route. 05/31 completed Not Available Not Available Not Available Tab-A-Vit e tablet 08/06 completed Pt'jeanna started falling out. Not Available Not Available Not Available fluconazo le 150 mg tablet Take 1 tablet by oral route for 1 day. 09/13 completed Not Available Not Available Not Available hydrocodo ne 5 mg-acetam inophen 325 mg tablet 1 tablet by oral route. 11/28 completed Not Available Not Available Not Available naloxone 0.4 mg/mL injection solution 0.2 mg by injectio n route. 05/31 completed Not Available Not Available Not Available cromolyn 4 % eye drops INSTILL 1 DROP IN LEFT EYE FOUR TIMES DAILY FOR 1 WEEK 05/15 completed Not Available Not Available Not Available penicilli n V potassium 500 mg tablet Take 1 tablet every 8 hours by oral route for 10 days. 11/01 completed Not Available Not Available Not Available acetamino phen 300 mg-codein e 30 mg tablet TAKE 1 TO 2 TABLETS EVERY 6 HOURS NEEDED FOR PAIN 11/22 completed Not Available Not Available Not Available sulfameth oxazole 800 mg-trimet hoprim 160 mg tablet 03/06 completed Not Available Not Available Not Available cefazolin 10 gram solution for injection 2000 mg by injectio n route. 05/31 completed Not Available Not Available Not Available acyclovir 800 mg tablet Take 1 tablet every day by oral route. 08/30 completed Not Available Not Available Not Available Celebrex 200 mg capsule 200 mg by oral route. 05/31 completed Not Available Not Available Not Available ofloxacin 0.3 % ear drops INSTILL 10 DROPS (1.5 MG) INTO the right EAR BY OTIC ROUTE 2 TIMES PER DAY for 10 days 03/20 completed Not Available Not Available Not Available citalopra m 20 mg tablet Take 1 tablet every day by oral route for 30 days. 10/20 completed Not Available Not Available Not Available diphenhyd ramine 50 mg/mL injection solution 12.5 mg by injectio n route. 05/31 completed Not Available Not Available Not Available Xylocaine 10 mg/mL (1 %) injection solution 20 mL by injectio n route. 05/31 completed Not Available Not Available Not Available Sensorcai ne-MPF 0.5 % (5 mg/mL) injection solution 10 mL by injectio n route. 05/31 completed Not Available Not Available Not Available Ear Drops (carbamid e peroxide) 6.5 % Instill 5 drops twice a day by otic route for 4 days. 01/19 completed Not Available Not Available Not Available fentanyl (PF) 50 mcg/mL injection solution 25 microgra ms by injectio n route. 05/31 completed Not Available Not Available Not Available sodium chloride 0.9 % intraveno us solution 100 mL by intraven . route. 05/31 completed Not Available Not Available Not Available dexametha sone sodium phosphate 4 mg/mL injection solution 4 mg by injectio n route. 05/31 completed Not Available Not Available Not Available Percocet 5 mg-325 mg tablet Take 1 tablet by oral route. 11/28 completed Not Available Not Available Not Available medroxypr ogesteron e 150 mg/mL intramusc ular suspensio n Inject 1 ml (150 mg) intramus cularly every 3 months 2023 active Not Available Not Available Not Avai lable naproxen 500 mg tablet Take 1 tablet twice a day by oral route with meals for 15 days. 11/22 completed Not Available Not Available Not Available amoxicill in 875 mg-potass ium clavulana te 125 mg tablet Take 1 tablet every 12 hours by oral route for 10 days. 03/20 completed Not Available Not Available Not Available medroxypr ogesteron e 150 mg/mL intramusc ular syringe Inject 1 mL every 3 months by intramus cular route as directed . 2024 active Not Available Not Available Not Avai lable Vandazole 0.75 % (37.5 mg/5 gram) vaginal gel Insert 1 applicat orful every day by vaginal route at bedtime for 5 days. 11/28 completed Not Available Not Available Not Available - OTC 04/18 completed Not Available Not Available Not Available ondansetr on HCl (PF) 4 mg/2 mL injection solution 4 mg by injectio n route. 05/31 completed Not Available Not Available Not Available Calcium with Vitamin D 600 mg-10 mcg (400 unit) tablet Take 1 tablet twice a day by oral route. 12/31 completed Not Available Not Available Not Available hydromorp susanna 0.5 mg/0.5 mL injection syringe 0.5 mg by injectio n route. 05/31 completed Not Available Not Available Not Available Vitals Date Recorded Body height Body mass index (BMI) Body weight Respiratory rate Heart rate Oxygen saturation Oxygen saturation in Arterial blood by Pulse oximetry Systolic blood pressure Diastolic blood pressure Provider Name and Address Organization Details Last Updated DateTime 157.48 cm 26 kg/m2 41562.1 2 g 14 /min 76 /min 98 % 98 % 116 mm[Hg] 80 mm[Hg] Rosanna Cooper MA [facility] SI 4 09:49:44 Date Recorded Body height Provider Name an d Address Organization Details Last Updated DateTime 02/22/2024 157.48 cm Hillary Bazan MA [place] Maria Luisa [facility] 2023 10:20:47 Date Recorded Body height Provider Name an d Address Organization Details Last Updated DateTime 05/19/2024 157.48 cm Hillary Bazan MA [facility] 2023 10:03:13 Date Recorded Body mass index (BMI) Body weight Provider Name and Address Organization Details Last Updated DateTime 05/19/2024 26.3 kg/m2 58641.3 g FELICIA Knowles SI 05/19/2024 10:29:15 Date Recorded Body height Provider Name an d Address Organization Details Last Updated DateTime 08/11/2024 157.48 cm Hillary Bazan MA [facility] 2024 10:05:46 Social History Question Answer Notes LastModified by Organizat ion Details LastModified Time Tobacco Smoking Status Never Smoker Hillary RASHEED Bazan null, [place] - [place] 08/10/2014 11:11:50 Do You Have An Advance Directive? No Information not available 12/02/2016 What Is Your Level Of Alcohol Consumption? None Information not available 08/10/2014 Are You Blind Or Do You Have Difficulty Seeing? No Information not available 11/22/2020 Is Blood Transfusion Acceptable In An Emergency? Yes Information not available 12/02/2016 What Is Your Level Of Caffeine Consumption? Occasional Information not available 11/22/2020 How Much Tobacco Do You Chew? None Information not available 12/02/2016 In The 14 Days Before Symptom Onset, Have You Had Close Contact With A Laboratory-confi rmed COVID-19 While That Case Was Ill? No Information not available 11/22/2020 Have You Been To An Area Known To Be High Risk For COVID-19? Yes Information not available 11/22/2020 Are You Currently Employed? Yes [email or web address] Information not available 06/08/2018 Are You Deaf Or Do You Have Serious Difficulty Hearing? No Information not available 11/22/2020 What Type Of Diet Are You Following? REGULAR [email or web address] Information not available 06/08/2018 Which Illicit Or Recreational Drugs Have You Used? None Information not available 09/13/2018 Do You Or Have You Ever Used E-cigarettes Or Vape? 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 No Information not available 11/22/2020 Live Alone Or With Others? With Others [email or web address] Information not available 06/08/2018 Marital Status Single Informatio n not available 08/10/2014 What Was The Date Of Your Most Recent Tobacco Screening? 02/22/2024 Information not available 02/22/2024 How Many Children Do You Have? 2 Information not available 08/10/2014 Performs Monthly Self-breast Exam? Yes Information not available 12/02/2016 What Is Your Relationship Status? Single [email or web address] Information not available 06/08/2018 Do You Use Your Seat Belt Or Car Seat Routinely? Yes Information not available 11/22/2020 Seat Belts Used Routinely Yes Information not available 12/02/2016 Are You Sexually Active? No Information not available 08/10/2014 Do You Have Smoke And Carbon Monoxide Detectors In Your Home? Yes Information not available 11/22/2020 Are You Passively Exposed To Smoke? No Information not available 11/01/2021 Do You Or Have You Ever Used Smokeless Tobacco? Never Used Smokeless Tobacco Information not available 08/30/2019 How Much Tobacco Do You Smoke? No Information not available 01/19/2017 Do You Use Any Illicit Or Recreational Drugs? No Information not available 11/22/2020 Do You Use Sunscreen Routinely? No Information not available 12/02/2016 Has Tobacco Cessation Counseling Been Provided? Yes Information not available 12/31/2022 On What Date Was Tobacco Cessation Counseling Provided? 02/22/2024 Information not available 02/22/2024 How Many Years Have You Smoked Tobacco? 0 Information not available 01/19/2017 Do You Or Have You Ever Used Any Other Forms Of Tobacco Or Nicotine? No [email or web address] Information not available 05/06/2021 Sex: Unknown Functional Status Question Answer Note LastModified by Organizat ion Details LastModified Time Are you able to care for yourself? Yes Information not available 11/22/2020 What is your exercise level? Occasional [email or web address] Information not available 06/08/2018 Mental Status None recorded. Family History Relationship Description Onset Age of this Age Resolved Age Notes LastModified by Organization Details LastModified Time Maternal Grandmother Diabetes mellitus [email or web address] Not available 2015 12:13:46 Maternal Aunt Carcinoma in situ of colon [email or web address] Not available 2015 12:13:46 Medical History Condition Response Heart Problems N Other N High Blood Pressure N Breast Cancer N Thyroid Problems N Kidney or Bladder Problems N GI Problems N Lung Disease N Depression N Blood Clots N Acne N Breast Problem N Eating Disorder N Anemia N Anesthesia Complications N Headaches/Migraines N Anxiety Disorder N Diabetes N Ovarian Cancer N Muscle, Joint, or Bone Problems N Blood Transfusions N Arthritis N Seizures/Epilepsy N Polyps N Infertility N Acid Reflux (GERD) N Cancer N Stroke N Abuse/Domestic Violence N Asthma N Endometriosis N High Cholesterol N Hepatitis N Liver Disease N Heart Disease N Fibromyalgia N Pre-Eclampsia N Hypertension N Osteoporosis N Kidney Disease N Gynecological History Statement/Question Response Abnormal Pap N Date of Last Mammogram 05/15/2023 Date of LMP 09/01/2023 STIs/STDs N HPV Vaccine N Age at Menarche 10 Current Control Method [employer] As[employer]er a Age at First Child 17 Frequency of Cycle (Q days) Sexually Active? N Menses Monthly N Date of Last Pap Smear 05/06/2021 Sexual Problems? N LMP Definite Desired Control Method Other Obstetrics History GPAL:G 3 P 2 0 1 2 Type Value Multiple Births 0 Full Term 2 Induced 0 Spontaneous 1 Premature 0 Living 2 Ectopics 0 Total 3 Immunizations Vaccine Type Date Status Note Provider Nam e and Address Organization Details Recorded Time COVID-19, mRNA, LNP-S, PF, 100 mcg/0.5mL dose or 50 mcg/0.25mL dose 1 completed Not Available [facility] 05/28/2023 00:16:51 COVID-19, mRNA, LNP-S, PF, 100 mcg/0.5mL dose or 50 mcg/0.25mL dose 1 completed Not Available [facility] 05/28/2023 00:16:51 MMR 6 completed Not Available [facility] 05/28/2023 00:16:51 DTP 7 completed Not Available [facility] 05/28/2023 00:16:51 DTP 7 completed Not Available [facility] 05/28/2023 00:16:51 DTP 6 completed Not Available [facility] 05/28/2023 00:16:51 DTP 8 completed Not Available [facility] 05/28/2023 00:16:51 OPV 7 completed Not Available [facility] 05/28/2023 00:16:51 OPV 7 completed Not Available [facility] 05/28/2023 00:16:51 OPV 6 completed Not Available [facility] 05/28/2023 00:16:51 OPV 8 completed Not Available [facility] 05/28/2023 00:16:51 Influenza, split virus, quadrivalent, preservative 7 completed Not Available [facility] 08/20/2019 02:34:50 HPV9 8 completed Not Available [facility] 08/20/2019 02:43:42 Influenza, split virus, quadrivalent, preservative 8 completed Not Available [facility] 08/20/2019 02:50:29 Influenza, split virus, quadrivalent, preservative 0 completed RASHEED Marks, [place] - [place] 08/30/2019 12:36:49 Influenza, split virus, quadrivalent, preservative 0 completed Rosanna Cooper [place] null, [place] - [place] 04/23/2020 14:43:05 Influenza, split virus, quadrivalent, preservative 1 completed Rosanna Cooper MA null, [place] - SIF 05/15/2021 15:48:33 Influenza, split virus, quadrivalent, preservative 6 completed Not Available [facility] 05/28/2023 00:16:51 Influenza, split virus, quadrivalent, preservative 3 completed Ye Garcia MD Attn: Accounting[address] [place], [address], [facility] - SIF 04/30/2023 12:28:01 Tdap 6 completed Not Available [facility] 08/20/2019 02:42:00 Influenza, split virus, trivalent, preservative 6 completed Not Available [facility] 08/20/2019 02:51:04 Past Encounters Encounter ID Performer Location Encounter Start Date Encounter Closed Date Diagnosis/Indication Diagnosis SNOMED-CT Code Diagnosis ICD10 Code Diagnosis Note [id number] Paul Ron Candida [facility] (JEWELER APPRENTICE) [address] [place] [address] [id number] 0 08/10/2014 10:41:41 08/10/2014 11:43:45 Uses depot contraception [id number] No problems presently. [id number] RASHEED Lynne HC (JEWELER APPRENTICE) [address] [place] [address] [id number] 0 11/06/2014 15:21:45 11/06/2014 15:44:31 Uses depot contraception 805163701 No problems presently. [id number] RASHEED Lynne HC (JEWELER APPRENTICE) [address] [place] [address] [id number] 0 02/05/2015 15:03:11 02/05/2015 15:34:16 Uses depot contraception 741620200 No problems presently. Plan annual exam at time of next scheduled depot injection. [id number] Candida (JEWELER APPRENTICE) [address] [place] [address] [id number] 0 05/08/2015 10:16:57 05/08/2015 11:49:12 Gynecologic examination 43512308 Z01.419 Uses depot contraception 450555179 Z30.42 No problems presently. Plan annual exam at time of next scheduled depot injection. [id number] Melody Tirado (JEWELER APPRENTICE) [address] [place] [address] [id number] 0 05/09/2015 14:01:09 05/09/2015 14:12:21 Uses depot contraception 217932628 Z30.42 No problems presently. Plan annual exam at time of next scheduled depot injection. [id number] FELICIA Knowles HC (JEWELER APPRENTICE) [address] [place] [address] [id number] 0 08/02/2015 14:24:46 08/02/2015 15:11:26 Uses depot contraception 258355435 Z30.42 No problems presently. Plan annual exam at time of next scheduled depot injection. [id number] MD Candida Hoff (Adult Med) [address] [place] [address] [id number] 0 09/14/2015 10:14:20 09/14/2015 17:56:53 General examination of patient 626410680 Z00.00 35 y/o BF who I last saw 05/26/2013 Active or passive immunization 212965786 Z23 Excessive cerumen in ear canal 283221255 H61.23 Palpitations 79641265 R0 0.2 Prior history of palpitatio ns, she was evaluated by cardiology . She denies any further symptoms. [id number] RASHEED Storey HC (JEWELER APPRENTICE) [address] [place] [address] [id number] 0 11/02/2015 14:28:31 11/05/2015 12:40:52 Uses depot contraception 036452111 Z30.42 No problems presently. Plan annual exam at time of next scheduled depot injection. [id number] RASHEED Lynne (JEWELER APPRENTICE) [address] [place] [address] [id number] 0 05/21/2016 10:07:52 05/21/2016 11:44:10 Uses depot contraception 505709306 Z30.42 No problems presently. Gynecologi c examination 39140005 Z01.536 [id number] FELICIA Knowles (JEWELER APPRENTICE) [address] [place] [address] [id number] 0 08/20/2016 14:28:15 08/20/2016 15:54:08 Contraception care 572294873 Z30.40 [id number] RASHEED Lynne (JEWELER APPRENTICE) [address] [place] [address] [id number] 0 12/02/2016 15:13:07 12/03/2016 13:30:02 Uses depot contraception 507899028 Z30.42 counseled about risks and benefits of prolonged use of depo provera and effect on bone mineral density. Advised to take calcium and vitamin D. Surveillan ce of contraception 485902937 Z30.40 counseled about risks and benefits of prolonged use of depo provera and effect on bone mineral density. counseled about switching to different forms. Counseled patient about different other forms of control methods including OCPS, Nuva ring, patch, Nexplanon, IUD, -- etc. Counseled LARC is the best option for her. Discussed with patient about Effectiven ess, Safety, Type and frequency of side effects, Duration of action and ability to discontinu e use, Non-contra ceptive benefits, Protection against sexually transmitte d infections , convenienc e, including need for refills, Reversibil ity and time to return of fertility, Effect on uterine bleeding, Accessibil ity, Privacy, Medical contraindi cations of all above forms of control methods.sh e wanted to get depo provera today and decide on switching after 3 months .safe sex counseling and advised to use condoms. 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 [id number] RASHEED Call (JEWELER APPRENTICE) [address] [place] [address] [id number] 0 03/20/2017 15:16:12 03/20/2017 15:57:28 Uses depot contraception 698719639 Z30.42 [id number] MD Candida Hoff (Adult Med) [address] [place] [address] [id number] 0 03/26/2017 14:25:52 03/26/2017 16:42:57 Low back pain 145544042 M54.5 Pain in lower limb 76496 006 M79.604 M79.605 MSK or a radiculopa thy from her back Venous varices 649502960 I83.91 Kidney disease 06743080 N08 Impaired f asting glycemia 524873130 R73.01 [id number] MD Candida Maldonado (JEWELER APPRENTICE) [address] [place] [address] [id number] 0 07/07/2017 12:18:29 07/07/2017 17:34:57 Uses depot contraception 024509890 Z30.42 counseled about risks and benefits of prolonged use of depo provera and effect on bone mineral density and risks of fracture and increased morbidity. counseled about switching to different forms. Patient say she understand s all the risks but she want only depoprover a. counseled about risks and benefits of it and also return of fertility, effect on bone mineral density. Advised to take calcium and vitamin D. safe sex counseling and advised to use condoms. [id number] RASHEED Sharma (JEWELER APPRENTICE) [address] [place] [address] [id number] 0 07/10/2017 15:10:19 07/13/2017 13:37:25 Contraception care management 304243587 Z30.9 [id number] MD Candida Hoff (Adult Med) [address] [place] [address] [id number] 0 07/16/2017 14:22:56 07/16/2017 14:55:55 Administration of influenza vaccine 20562547 Z23 Palpitations 81654470 R0 0.2 Improved, 2 episodes since the recent loss of her grandmothe r Generalize d anxiety disorder 48930582 F41.1 Counseling ExerciseSt art Citalopram , side effects were discussed in detail. Normal grief reaction 27 8572916 F43.20 Goiter 3752302 E04.9 [id number] Salazar Tirado (JEWELER APPRENTICE) [address] [place] [address] [id number] 0 10/20/2017 14:21:17 10/20/2017 15:23:05 Family planning surveillance 528754835 Z30.09 [id number] Salazar Tirado (JEWELER APPRENTICE) [address] [place] [address] [id number] 0 02/16/2018 09:40:48 02/16/2018 11:03:16 Gynecologic examination 95094352 Z01.419 Exposure t o sexually transmissible disorder 597521554 Z20.2 Uses depot contraception 526925605 Z30.42 High risk sexual behavior 802672089 Z72.51 Screening mammography 24 853357 Z12.31 Hyperthyroidism 19449784 E05.90 Candidiasis of vagina 72 401705 B37.3 [id number] RASHEED Storey (JEWELER APPRENTICE) [address] [place] [address] [id number] 0 05/14/2018 14:18:17 05/17/2018 11:32:19 Family planning surveillance 818292746 Z30.09 [id number] RASHEED Storey (JEWELER APPRENTICE) [address] [place] [address] [id number] 0 06/08/2018 15:45:04 06/08/2018 17:27:34 Family planning surveillance 231427988 Z30.09 Genital he rpes simplex 59080546 A60.9 Exposure t o sexually transmissible disorder 707031594 Z20.2 Hyperthyroidism 49308096 E05.90 Goiter 9710114 E04.9 Active or passive immunization 758498076 Z23 0, 2, and 6 month series. [id number] RASHEED Storey (JEWELER APPRENTICE) [address] [place] [address] [id number] 0 08/06/2018 14:48:22 08/09/2018 12:08:47 Family planning surveillance 982442457 Z30.09 [id number] MD Candida Hoff (Adult Med) [address] [place] [address] [id number] 0 09/13/2018 16:24:54 09/14/2018 09:02:36 General examination of patient 348222829 Z00.01 Screening for malignant neoplasm of breast 973221229 Z12.31 Goiter 1115509 E04.9 [id number] RASHEED Wilson HC (JEWELER APPRENTICE) [address] [place] [address] [id number] 10/29/2018 09:55:45 10/29/2018 12:54:27 Depot contraceptive-no problem 291682145 Z30.42 [id number] RASHEED Wilson HC (JEWELER APPRENTICE) [address] [place] [address] [id number] 0 01/21/2019 09:57:22 01/21/2019 12:08:32 Depot contraceptive-no problem 797111673 Z30.42 [id number] RASHEED Storey (JEWELER APPRENTICE) [address] [place] [address] [id number] 0 04/15/2019 11:13:03 04/18/2019 12:35:27 Family planning surveillance 854966430 Z30.09 [id number] RASHEED Lynne (JEWELER APPRENTICE) [address] [place] [address] [id number] 0 07/08/2019 10:16:41 07/08/2019 10:42:46 Depot contraceptive-no problem 746404025 Z30.42 [id number] MD Candida Hoff (Adult Med) [address] [place] [address] [id number] 0 08/30/2019 10:50:55 08/31/2019 14:21:58 General examination of patient 108934080 Z00.01 Goiter 4840368 E04.9 Screening for malignant neoplasm of breast 252450988 Z12.31 Administra tion of influenza vaccine 83363230 Z23 Serum crea tinine above reference range 738601378 R79.89 Recheck [id number] RASHEED Storey (JEWELER APPRENTICE) [address] [place] [address] [id number] 0 10/07/2019 16:10:32 10/07/2019 16:36:51 Family planning surveillance 994195217 Z30.09 [id number] RASHEED Church (JEWELER APPRENTICE) [address] [place] [address] [id number] 0 01/06/2020 15:39:32 01/09/2020 07:01:54 Family planning surveillance 480329254 Z30.09 [id number] MD Candida Hoff (Adult Med) [address] [place] [address] [id number] 0 03/06/2020 15:54:30 03/07/2020 10:29:44 Serum creatinine above reference range 072066852 R79.89 Recheck 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 Goiter 2315329 E04.9 Pain of ri ght shoulder joint 5775646817 2105340 M25.659 [id number] MD Candida Hoff (Adult Med) [address] [place] [address] [id number] 0 03/15/2020 15:42:51 03/16/2020 09:04:00 Low back strain 246867158 S39.012A Serum crea tinine above reference range 112037293 R79.89 [id number] MD Candida Hoff (Adult Med) [address] [place] [address] [id number] 0 04/23/2020 14:16:59 04/24/2020 11:12:01 Administration of influenza vaccine 96870282 Z23 Pain of ri ght shoulder joint 0547731384 1203721 M25.511 Improvemen t noted [id number] Salazar Triado (JEWELER APPRENTICE) [address] [place] [address] [id number] 0 04/26/2020 14:49:17 04/26/2020 20:29:15 Family planning surveillance 051325169 Z30.09 [id number] RASHEED Storey (JEWELER APPRENTICE) [address] [place] [address] [id number] 0 04/27/2020 14:49:33 04/30/2020 09:47:45 Family planning surveillance 008955343 Z30.09 [id number] RASHEED Storey (JEWELER APPRENTICE) [address] [place] [address] [id number] 0 08/24/2020 16:03:37 08/25/2020 21:33:46 Family planning surveillance 879378166 Z30.09 [id number] FELICIA Marsh (JEWELER APPRENTICE) [address] [place] [address] [id number] 0 11/09/2020 15:44:01 12/03/2020 08:44:42 Uses depot contraception 538495754 Z30.42 [id number] MD Candida Hoff (Adult Med) [address] [place] [address] 88570-892 0 11/22/2020 14:47:21 11/23/2020 13:00:12 Foot callus 979815209 L84 Pain in both feet 427802 9052 6945176 M79.671 M79.672 Verruca plantaris 451284 08 B07.0 Hallux dilan horacio AND bunion 484447955 M20.11 Anxiety 24409596 F41.9 [id number] FELICIA Marsh (JEWELER APPRENTICE) [address] [place] [address] [id number] 0 02/01/2021 09:40:52 02/01/2021 15:57:54 Family planning surveillance 641118422 Z30.09 Contraception care 96169 5005 Z30.40 [id number] Salazar Zabala Candida (JEWELER APPRENTICE) [address] [place] [address] [id number] 0 05/06/2021 11:23:15 05/07/2021 10:52:55 Family planning surveillance 465506570 Z30.09 Gynecologi c examination 06887222 Z01.419 Z11.51 Screening mammography 24 754956 Z12.31 Bacterial vaginosis 4197 14292 N76.0 Exposure t o sexually transmissible disorder [id number] Z20.2 [id number] MD Candida Hoff (Adult Med) [address] [place] [address] [phone] 0 05/15/2021 14:47:00 05/16/2021 12:45:38 Needs influenza immunization 968149747 Z28.3 History of hyperthyroidism 942778184 Z86.39 Pre-surger y evaluation 394127980 Z01.818 Low risk unless her tests come back abnormal.H er surgeon has requested an EKG General ex amination of patient 105826807 Z00.01 [id number] Alberto Tirado (JEWELER APPRENTICE) [address] [place] [address] [phone] 0 08/09/2021 10:49:14 08/10/2021 14:22:32 Contraception care [id number] Z30.40 [id number] RASHEED Lynne (JEWELER APPRENTICE) [address] [place] [address] [phone] 0 11/01/2021 10:44:11 11/04/2021 13:22:41 Depot contraceptive-no problem 687102188 Z30.42 [id number] MD Candida Hoff (Adult Med) [address] [place] [address] [phone] 0 11/28/2021 09:37:48 11/29/2021 07:33:11 Goiter 6534133 E04.9 Intolerant of cold 13940 000 R68.89 Blood in urine 49952769 R31.9 Serum crea tinine above reference range 359210003 R79.89 Screening for malignant neoplasm of breast 143034279 Z12.31 SARS-CoV-2 mRNA vaccine declined 6751657907 Z28.21 [id number] RASHEED Amin HC (JEWELER APPRENTICE) [address] [place] [address] [phone] 0 01/31/2022 09:47:53 02/04/2022 14:16:58 Contraception care 374923694 Z30.40 [id number] SAMUEL POLLOCK HC (JEWELER APPRENTICE) [address] [place] [address] [phone] 0 04/18/2022 10:40:23 05/01/2022 10:15:40 Screening for malignant neoplasm of breast 335489230 Z12.31 Last mammogram 05/2021, BIRADS 1. Annual screening order provided. [facility] ion care management 747292803 Z30.9 care home use of Depo. Long discussion on risks of decreased BMD with Depo use. Discussed different control options with patient including R/B/A/I. Pt will proceed with injection today, but is aware that she will need to get bone density screening before continuing with Depo. If abnormal, will discontinu e and switch to alternativ e. Pt agreeable. Screening for osteoporosis 425090411 Z13.820 Pt on Depo for 17+ yrs, warrants screening given risk of decreased BMD. [id number] RASHEED Church HC (JEWELER APPRENTICE) [address] [place] [address] [phone] 0 07/23/2022 16:02:49 07/31/2022 15:36:48 Contraception care 982859150 Z30.40 [id number] SAMUEL POLLOCK HC (JEWELER APPRENTICE) [address] [place] [address] 49241-091 0 10/10/2022 09:35:58 10/28/2022 09:10:41 Depot contraceptive-no problem 336317922 Z30.42 Other options of contracept nitin discussed, pt happy with Depo and not interested in switching. Advised Depo contracept ion can increase risk of osteoporos is thus take Ca w/ Vit D supplement ation and consider alternativ e contracept darrell. BMD normal Apr 2022 (T score 0.5). Will continue depo contracept ion. RTC every 3 months for injection. [id number] SAMUEL POLLOCK (JEWELER APPRENTICE) [address] [place] [address] [phone] 0 12/31/2022 08:39:34 01/02/2023 11:18:34 Depot contraceptive-no problem 168497877 Z30.42 Other options of contracept nitin discussed, pt happy with Depo and not interested in switching. Advised Depo contracept ion can increase risk of osteoporos is thus take Ca w/ Vit D supplement ation and consider alternativ e contracept darrell. BMD normal Apr 2022 (T score 0.5). RTC every 3 months for injection. [id number] MD Candida Hoff (Adult Med) [address] [place] [address] [phone] 0 04/30/2023 10:01:59 05/01/2023 14:57:51 Goiter 3679744 E04.9 Serum crea tinine above reference range 264436199 R79.89 Ganglion c yst of right wrist 4931418545 70899 M67.431 Administra tion of influenza vaccine 16937926 Z23 Screening for malignant neoplasm of breast 062999781 Z12.31 Intolerant of cold 64553 000 R68.89 Bilateral instability of joints of knees 5990525907 9225875 M25.361 M25.362 General ex amination of patient 276774447 Z00.01 Umbilical hernia 8526289 07 K42.9 [id number] SAMUEL POLLOCK (JEWELER APPRENTICE) [address] [place] [address] [phone] 0 03/26/2023 11:12:31 04/01/2023 09:51:57 Depot contraceptive-no problem 506754329 Z30.8 Other options of contracept nitin discussed, pt happy with Depo and not interested in switching. Advised Depo contracept ion can increase risk of osteoporos is thus take Ca w/ Vit D supplement ation and consider alternativ e contracept darrell. BMD normal Apr 2022 (T score 0.5). RTC every 3 months for injection. [id number] MD Candida Hoff (Adult Med) [address] [place] [address] [phone] 0 06/02/2023 09:18:29 06/03/2023 10:13:50 Mammography abnormal 335472641 R92.8 Discussed in detail Note from 05/26/2023 US 05/26/2023 ; Right Complicate d cyst, Left, Complicate d cyst or mass (Benign?)6 month follow up recommende Tona will have her seen by the breast surgeon.Tona scussed with Ms Shah on 05/26/2023 at 11:38AM Note from 05/15/2023 MMG 05/15/2023 , Extremely dense breasts. NL but an US was recommende d Body mass index 25-29 - overweight 650602304 Z68.25 Overweight 154450024 E66 .3 Abnormal urinalysis 1672 81277 R82.90 Impaired f asting glycemia 758522805 R73.01 [id number] RASHEED Lynne (JEWELER APPRENTICE) [address] [place] [address] [phone] 0 06/16/2023 09:01:56 06/18/2023 09:42:42 Depot contraceptive-no problem 375082226 Z30.8 [id number] MD Candida ROLAND (JEWELER APPRENTICE) [address] [place] [address] [phone] 0 09/01/2023 10:32:48 09/04/2023 12:24:34 Contraception care management 918080802 Z30.9 Depot contraceptive-no problem 386980119 Z30.42 [id number] MD Candida ROLAND (JEWELER APPRENTICE) [address] [place] [address] [phone] 0 11/23/2023 10:33:46 12/02/2023 16:14:25 Abnormal vaginal bleeding 102096906 N93.9 Given this has only happened one time, will monitor for now.Patien t will get depot today and if bleeding continues to be irregular over the next 3 months, will do work up for AUB including USIf bleeding becomes even worse, she should come for a visit sooner than 3 monthsRetu rn precaution s discussed with patient Depot contraceptive-no problem 053310063 Z30.013 Breast cx risk low, no hx of migraine w/ aura and no hx of DVT or clotting disordersC ontinue Vit D and calcium supplement sDiscussed risks of longterm Depot use and patient expressed understand ing and is willing to take the riskWill continue administra tion for nowCan consider early DEXA scan [id number] MD Candida Hoff HC (Adult Med) [address] [place] [address] [phone] 0 12/01/2023 09:37:30 12/02/2023 15:01:32 Mammography abnormal 865428014 R92.8 Follow up US OV 06/02/2023 Discussed in detail Note from 05/26/2023 US 05/26/2023 ; Right Complicate d cyst, Left, Complicate d cyst or mass (Benign?)6 month follow up recommende Tona will have her seen by the breast surgeon.Tona scussed with Ms Shah on 05/26/2023 at 11:38AM Note from 05/15/2023 MMG 05/15/2023 , Extremely dense breasts. NL but an US was recommende d Impaired f asting glycemia 688504373 R73.01 Discussed [id number] RASHEED Lynne HC (JEWELER APPRENTICE) [address] [place] [address] [phone] 0 02/22/2024 09:46:38 03/07/2024 14:46:30 Surveillance of depot contraception done 2835207434 9104 Z30.42 [id number] MD Candida Zarate HC (JEWELER APPRENTICE) [address] [place] [address] [phone] 0 05/19/2024 09:35:48 06/02/2024 16:32:28 Contraception care management 344790915 Z30.9 [id number] RASHEED Lynne HC (JEWELER APPRENTICE) [address] [place] [address] 08/11/2024 09:44:39 08/31/2024 15:20:09 Surveillance of depot contraception done 8932937994 9104 Z30.42 [id number] MD Candida Hoff (Adult Med) [address] [place] [address] 08/12/2024 10:17:15 09/10/2024 09:36:22 Mammography abnormal 992949911 R92.8 MMGUS 12/08/2023 -ve OV 11/23/2023F ollow up US OV 06/02/2023 Discussed in detail Note from 05/26/2023 US 05/26/2023 ; Right Complicate d cyst, Left, Complicate d cyst or mass (Benign?)6 month follow up recommende Tona will have her seen by the breast surgeon.Tona scussed with Ms Shah on 05/26/2023 at 11:38 AM Note from 05/15/2023 MMG 05/15/2023 , Extremely dense breasts. NL but an US was recommende d Impaired f asting glycemia 486645201 R73.01 HBA1c 5.9% on 12/01/2023 Screening mammography of bilateral breasts 4399425587 13944 Z12.31 Adult heal th examination 888625524 Z00.01 Health Concerns Section Related Observation LastModified by Organization Detai ls LastModified Time None Recorded Concern Status LastModified by Organization Details LastModified Time None Recorded Advance Directives Directive N: Payers Encounter Date Sequence Insurance Name Policy Number Policy Crawley Covered Member ID Crawley Member ID Guarantor Name 12/01/2023 1 [facility] (MEDICAID HMO) [id number] Angie Shah [id number] Angie Shah 02/22/2024 1 [facility] (MEDICAID HMO) [id number] Angie Shah [id number] Angie Shah 08/11/2024 1 [facility] [id number] Angie Shah [id number] Angie Shah 08/12/2024 1 [facility] [id number] Angie Shah [id number] Angie Shah Notes Date Note Type Note Provider Name and Address Organization Details Recorded Time 12/01/2023 text/html Follow up I we nt to him, he said to wait for the 6 months ultrasound Ms Shah is doing well, she was seen by the surgeon who recommended that she gets her follow up US of the breast in 6 months. Ye Garcia MD Attn: Accounting,[address] [facility], [place], [address], [place] [facility] 12/01/2023 11:08:58 05/19/2024 text/html 44 yo F presenti ng for depot shot. No acute concerns or complaints at this time.Happy with the depot and want to continue Erika Ramírez MD Attn: Accounting,[address] [facility], [place], [address], [place] [facility] 05/29/2024 19:55:22 08/12/2024 text/html Phone visit due to the inclement weather. I was in the office It was my yearly Ms Shah is doing well, she was uninsured and unable to schedule her MMG. Ye Garcia MD Attn: Accounting,[address] [facility], [place], [address], [place] [facility] 08/12/2024 12:41:01 OBGyn Episode Ob Episode Information Episode Created Date Number of Fetuses Patient Bloodtype Patient rh Status Prepregnancy Weight lbs Domestic Partner Domestic Partner Phone Father Name Rehabilitation Therapy Aide Status 05/21/20 16 1 CLOSED Fetus Data First Name Last Name Admitted to NICU Weight (g) Sex Living Outcome Pediatric Complications Fetus ID Race Codes Race Delivery Type 2381.35 8 Full Term [id number] Vaginal Chapo Calculation Initial Chapo Date Initial Exam Date Initial Exam Provider Initial Ultrasound Date Last Menstrual Period Date Ultra Sound Weeks Gestation 0 Eighteen To Twenty Week Chapo Update Ultra Sound Date Fundal Height At Umbil Quickening Date Ultra Sound Latest Weeks Gestation Final Chapo Confirmed By Final Chapo Confirmed Date Final Chapo Date Ultra Sound Latest Days Gestation 0 0 Menstrual History Last Menstrual Date Menses Monthly On Bcp Conception Prior Menses Frequency Hcg Plus Date Menarche Onset Age Delivery Information Delivery Date Delivery Type Labor Anesthesia Weeks Gestation Incision Type Labor Labor Length Hrs Delivered By Post Complications Tubal Sterilization Discharge Date Comments 8 [facility]- [facility]ural 40 24 Discharge Information Feeding Method Contraceptive Method Maternal HG B and HCT Levels Ob Episode Information Episode Created Date Number of Fetuses Patient Bloodtype Patient rh Status Prepregnancy Weight lbs Domestic Partner Domestic Partner Phone Father Name Rehabilitation Therapy Aide Status 05/21/20 16 1 CLOSED Fetus Data First Name Last Name Admitted to NICU Weight (g) Sex Living Outcome Pediatric Complications Fetus ID Race Codes Race Delivery Type 3401.94 Full Term [id number] Chapo Calculation Initial Chapo Date Initial Exam Date Initial Exam Provider Initial Ultrasound Date Last Menstrual Period Date Ultra Sound Weeks Gestation 0 Eighteen To Twenty Week Chapo Update Ultra Sound Date Fundal Height At Umbil Quickening Date Ultra Sound Latest Weeks Gestation Final Chapo Confirmed By Final Chapo Confirmed Date Final Chapo Date Ultra Sound Latest Days Gestation 0 0 Menstrual History Last Menstrual Date Menses Monthly On Bcp Conception Prior Menses Frequency Hcg Plus Date Menarche Onset Age Delivery Information Delivery Date Delivery Type Labor Anesthesia Weeks Gestation Incision Type Labor Labor Length Hrs Delivered By Post Complications Tubal Sterilization Discharge Date Comments 5 [facility] Discharge Information Feeding Method Contraceptive Method Maternal HG B and HCT Levels
== END 2024-09-14 08:11 | disposition home or self-care (01) ==
LOC: ANHIMG 08:15
PROVIDERS: PCP Internal Medicine Infectious Disease; Visit Provider Internal Medicine Infectious Disease
DX: Z12.31 Encounter for screening mammogram for malignant neoplasm of breast (principal); R92.8 Other abnormal and inconclusive findings on diagnostic imaging of breast
CPT/HCPCS: 77063; 77067

== ENCOUNTER 2024-11-17 11:20 | Outpatient (CLI) | payer OTHER, SELFPAY ==
--- NOTE | ~2024-11-17 | MMUS_ITS ---
EXAMINATION: MM diagnostic fabiola RT w yasmeen, US breast RT complete HISTORY: Right breast asymmetry. TECHNIQUE: Additional 3-D tomosynthesis images of the right breast were performed and synthetic 2-D i mages were generated. CAD analysis was submitted and interpreted. High resolution complete right jus st ultrasound was performed. COMPARISON: Comparison to multiple prior studies sequentially, with oldest reviewed study dated 05/01. BREAST PARENCHYMAL COMPOSITION: Dense: The breasts are extremely dense, which lowers the sensitivity of mammography. FINDINGS: MAMMOGRAPHIC FINDINGS: There are no suspicious masses, calcifications or architectural distortion in the right breast to sug gest malignancy. ULTRASOUND: Complete US of all 4 quadrants of the right breast/s and retroareolar region was reviewed. At 9:00, 1 cm from the nipple there is a 5 mm cyst. At 9:00, 1 cm from the nipple there is an oval parallel susie ented hypoechoic mass with slightly echogenic hilum measuring 5 mm, most likely benign intramammary l ymph node. No internal vascularity or posterior features. IMPRESSION: 1. Probable benign right breast mass at 9:00, 1 cm from the nipple measuring 5 mm. 2. Recommend 6 month follow-up Limited right breast ultrasound BI-RADS category 3, probably benign findings. Reviewed, dictated and finalized at location B. IMPRESSION: 1. Probable benign right breast mass at 9:00, 1 cm from the nipple measuring 5 mm. 2. Recommend 6 month follow-up Limited right breast ultrasound BI-RADS category 3, probably benign findings.
--- OUTSIDE RECORDS SUMMARY | 2024-11-17 12:14 | XMS_ITS | Data Portability ---
Author Organization [facility]IM[facility] Address [address] [facility] [place] [place] [address] Care Team Providers Care School Transportation Supervisor Name Role Phone ELISABETH BRAMBILA Director Content Marketing SOBEIDA ROGER [employer] [facility] [employer] Agent Unavailable YE GARCIA Primary Care Provider Assessment Encounter Date Assessment Date Assessment LastModified by Organization Details LastModified Time 05/19/2024 05/19/2024 44 yr old here for depot shot, no acute concerns or complaints augabi Not available 05/24/2024 15:27:55 Plan of Treatment Reminders Order Date Submit Date Provider Last Modified By Organization Details Last Modified Time Details Appointments ANY 15 2024 09:00A M Ye Garcia MD Not available Not available Not available NURSE ONLY 2024 08:30A M BHARGAVI JACKSON MD Not available Not available Not available Lab HbA1c (hemoglob in A1c), blood 2024 025 [facility], [address], [address], [place], [address], 09/01/2024 08:23:49 CMP, serum or plasma 2024 025 [facility], [address], [address], [place], [address], 09/01/2024 08:23:47 CBC w/ auto diff 2024 025 [facility], [address], [address], [place], [address], 09/01/2024 08:23:52 lipid panel, serum 2024 025 [facility], [address], [address], [place], [address], 09/01/2024 08:23:46 vitamin D, 25-hydrox y, total, serum 2024 025 [facility], [address], [address], [place], [address], 09/01/2024 08:23:53 urinalysi s, complete 2024 025 [facility], [address], [address], [place], [address], 09/01/2024 08:23:51 test, urine 2024 025 [email or web address] In-Office Order, Internal Use Only DO Not Attach Compendium DO Not Attach Compendium, Do Not Delete/merge, [id number] 08/12/2024 12:38:31 test, urine 2023 024 [email or web address] In-Office Order, Internal Use Only DO Not Attach Compendium DO Not Attach Compendium, Do Not Delete/merge, [id number] 05/23/2024 07:50:27 Referral None recorded. Procedures None recorded. Surgeries None recorded. Imaging MAMMO, screening , bilateral - Screening MMG, please. Hx of bilateral complicat ed breast cysts 2024 025 [facility], [address], [place] [address], [place], [address], 09/14/2024 09:49:24 Medication Orders medroxypr ogesteron e 150 mg/mL intramusc ular syringe 2024 025 [email or web address], [address] [place] [address], [id number], 10/27/2024 11:41:34 medroxypr ogesteron e 150 mg/mL intramusc ular syringe 2024 025 [email or web address], [address] [place] [address], [id number], 08/12/2024 12:38:31 medroxypr ogesteron e 150 mg/mL intramusc ular suspensio n 2023 024 [facility], [address] [place] [address], [id number], 10/03/2024 11:24:32 medroxypr ogesteron e 150 mg/mL intramusc ular syringe 2023 024 [email or web address], [address] [place] [address], [id number], 02/25/2024 05:52:07 Patient TargetsNo targets recorded. Patient Instructions Encounter Date Encounter Id Patient Instructions Last Modified By Organization Details Last Modified Time 05/19/2024 [id number] On the date of this encounter, I was immediately available to assist the resident/fellow in the care of the patient, and have reviewed and agree with the resident s findings and plan of care. ~MD [email or web address] Not available 05/29/2024 19:55:15 08/12/2024 [id number] Labs MMG at [facility] in ~ 6 weeks oajao Not available 08/12/2024 12:40:34 Reason for Referral None Reported. Results Created Date Observation Date Name Description Value Unit Range Abnormal Flag Note LastModifiedBy Organization Detail LastModifiedTime 05/19/2005/19/2024 pregn essence test, urine HCG negati ve Not Available In-Office Order Internal Use Only DO Not Attach Compendium DO Not Attach Compendium, Do Not Delete/merge, [id number] 05/19/2024 10:30:41 08/11/19 25 08/11/2024 pregn essence test, urine HCG negati ve Not Available In-Office Order Internal Use Only DO Not Attach Compendium DO Not Attach Compendium, Do Not Delete/merge, [id number] 08/11/2024 10:06:05 08/31/19 25 09/01/2024 LIPID PANEL cholesterol, total 126 mg/dL 100-19 9 Not Available [facility] ([facility]) [address] [place], [address], 09/01/2024 08:23:46 08/31/19 25 09/01/2024 LIPID PANEL triglyceride s 67 mg/dL 0-149 Not Available [facility] ([facility]) [address] [place], [address], 09/01/2024 08:23:46 08/31/19 25 09/01/2024 LIPID PANEL HDL cholesterol 38 mg/dL >39 below low normal Not Available [facility] ([facility]) [address] [place], [address], 09/01/2024 08:23:46 08/31/19 25 09/01/2024 LIPID PANEL VLDL cholesterol maria guadalupe 14 mg/dL 5-40 Not Available [facility] ([facility]) [address] [place], [address], 09/01/2024 08:23:46 08/31/19 25 09/01/2024 LIPID PANEL LDL chol calc ([facility]) 74 mg/dL 0-99 Not Available [facility] ([facility]) [address] [place], [address], 09/01/2024 08:23:46 08/31/19 25 09/01/2024 COMP. METAB OLIC PANEL (14) glucose 88 mg/dL 70-99 Not Available [facility] ([facility]) [address] [place], [address], 09/01/2024 08:23:47 08/31/19 25 09/01/2024 COMP. METAB OLIC PANEL (14) BUN 11 mg/dL 6-24 Not Available [facility] ([facility]) [address] [facility] [place], [address], 09/01/2024 08:23:47 08/31/19 25 09/01/2024 COMP. METAB OLIC PANEL (14) creatinine 1.23 mg/dL 0.57-1 .00 above high normal Not Available [facility] ([facility]) [address] [facility] [place], [address], 09/01/2024 08:23:47 08/31/19 25 09/01/2024 COMP. METAB OLIC PANEL (14) eGFR 55 mL/mi n/1.7 3 >59 below low normal Not Available [facility] ([facility]) [address] [facility] [place], [address], 09/01/2024 08:23:47 08/31/19 25 09/01/2024 COMP. METAB OLIC PANEL (14) BUN/creatini ne ratio 9 9-23 Not Available [facility] ([facility]) [address] [facility] [place], [address], 09/01/2024 08:23:47 08/31/19 25 09/01/2024 COMP. METAB OLIC PANEL (14) sodium 140 mmol/ L 134-14 4 Not Available [facility] ([facility]) [address] [facility] [place], [address], 09/01/2024 08:23:47 08/31/19 25 09/01/2024 COMP. METAB OLIC PANEL (14) potassium 4.6 mmol/ L 3.5-5. 2 Not Available [facility] ([facility]) [address] [facility] [place], [address], 09/01/2024 08:23:47 08/31/19 25 09/01/2024 COMP. METAB OLIC PANEL (14) chloride 106 mmol/ L 96-106 Not Available [facility] ([facility]) [address] [place], [address], 09/01/2024 08:23:47 08/31/19 25 09/01/2024 COMP. METAB OLIC PANEL (14) carbon dioxide, total 22 mmol/ L Not Available [facility] ([facility]) [address] [place], [address], 09/01/2024 08:23:47 08/31/19 25 09/01/2024 COMP. METAB OLIC PANEL (14) calcium 9.0 mg/dL 8.7-10 .2 Not Available [facility] ([facility]) [address] [place], [address], 09/01/2024 08:23:47 08/31/19 25 09/01/2024 COMP. METAB OLIC PANEL (14) protein, total 6.5 g/dL 6.0-8. 5 Not Available [facility] ([facility]) [address] [place], [address], 09/01/2024 08:23:47 08/31/19 25 09/01/2024 COMP. METAB OLIC PANEL (14) albumin 4.4 g/dL 3.9-4. 9 Not Available [facility] ([facility]) [address] [place], [address], 09/01/2024 08:23:47 08/31/19 25 09/01/2024 COMP. METAB OLIC PANEL (14) globulin, total 2.1 g/dL 1.5-4. 5 Not Available [facility] ([facility]) [address] [place], [address], 09/01/2024 08:23:47 08/31/19 25 09/01/2024 COMP. METAB OLIC PANEL (14) bilirubin, total 0.2 mg/dL 0.0-1. 2 Not Available [facility] ([facility]) [address] [place], [address], 09/01/2024 08:23:47 08/31/19 25 09/01/2024 COMP. METAB OLIC PANEL (14) alkaline phosphatase 46 IU/L 44-121 Not Available [facility] ([facility]) [address] [facility], [place], [address], 09/01/2024 08:23:47 08/31/19 25 09/01/2024 COMP. METAB OLIC PANEL (14) AST (SGOT) 18 IU/L 0-40 Not Available [facility] ([facility]) [address] [facility], [place], [address], 09/01/2024 08:23:47 08/31/19 25 09/01/2024 COMP. METAB OLIC PANEL (14) ALT (SGPT) 12 IU/L 0-32 Not Available [facility] ([facility]) [address] [facility], [place], [address], 09/01/2024 08:23:47 08/31/19 25 09/01/2024 MICRO SCOPI C EXAMI NATIO N WBC None seen /hpf 0-5 Not Available [facility] ([facility]) [address] [facility], [place], [address], 09/01/2024 08:23:49 08/31/19 25 09/01/2024 MICRO SCOPI C EXAMI NATIO N RBC 0-2 /hpf 0-2 Not Available [facility] ([facility]) [address] [facility], [place], [address], 09/01/2024 08:23:49 08/31/19 25 09/01/2024 MICRO SCOPI C EXAMI NATIO N epithelial cells (non renal) 0-10 /hpf 0-10 Not Available [facility] ([facility]) [address] [facility], [place], [address], 09/01/2024 08:23:49 08/31/19 25 09/01/2024 MICRO SCOPI C EXAMI NATIO N casts None seen /lpf nonese en Not Available [facility] ([facility]) [address] [facility], [place], [address], 09/01/2024 08:23:49 08/31/19 25 09/01/2024 MICRO SCOPI C EXAMI NATIO N bacteria None seen nonese en/few Not Available [facility] ([facility]) [address] [facility], [place], [address], 09/01/2024 08:23:49 08/31/19 25 09/01/2024 HEMOG LOBIN A1C hemoglobin A1C 5.9 % 4.8-5. 6 above high normal Predi abete s: 5.7 - 6.4 Diabe fatimah: >6.4 Glyce rosario contr ol for adult s with diabe fatimah: <7.0 Not Available [facility] ([facility]) [address] [facility], [place], [address], 09/01/2024 08:23:49 08/31/19 25 09/01/2024 URINA LYSIS , COMPL ETE specific gravity 1.028 1.005- 1.030 Not Available [facility] ([facility]) [address] [facility], [place], [address], 09/01/2024 08:23:51 08/31/19 25 09/01/2024 URINA LYSIS , COMPL ETE pH 6.0 5.0-7. 5 Not Available [facility] ([facility]) [address] [place], [address], 09/01/2024 08:23:51 08/31/19 25 09/01/2024 URINA LYSIS , COMPL ETE urine-color YELLOW yellow Not Available [facility] ([facility]) [address] [place], [address], 09/01/2024 08:23:51 08/31/19 25 09/01/2024 URINA LYSIS , COMPL ETE appearance CLEAR clear Not Available [facility] ([facility]) [address] [facility], [place], [address], 09/01/2024 08:23:51 08/31/19 25 09/01/2024 URINA LYSIS , COMPL ETE WBC esterase NEGATI VE negati ve Not Available [facility] ([facility]) [address] [facility], [place], [address], 09/01/2024 08:23:51 08/31/19 25 09/01/2024 URINA LYSIS , COMPL ETE protein TRACE negati ve/tra ce Not Available [facility] ([facility]) [address] [facility], [place], [address], 09/01/2024 08:23:51 08/31/19 25 09/01/2024 URINA LYSIS , COMPL ETE glucose NEGATI VE negati ve Not Available [facility] ([facility]) [address] [place], [address], 09/01/2024 08:23:51 08/31/19 25 09/01/2024 URINA LYSIS , COMPL ETE ketones TRACE negati ve abnormal Not Available [facility] ([facility]) [address] [facility], [place], [address], 09/01/2024 08:23:51 08/31/19 25 09/01/2024 URINA LYSIS , COMPL ETE occult blood NEGATI VE negati ve Not Available [facility] ([facility]) [address] [place], [address], 09/01/2024 08:23:51 08/31/19 25 09/01/2024 URINA LYSIS , COMPL ETE bilirubin NEGATI VE negati ve Not Available [facility] ([facility]) [address] [place], [address], 09/01/2024 08:23:51 08/31/19 25 09/01/2024 URINA LYSIS , COMPL ETE urobilinogen ,semi-qn 1.0 mg/dL 0.2-1. 0 Not Available [facility] ([facility]) [address] [facility], [place], [address], 09/01/2024 08:23:51 08/31/19 25 09/01/2024 URINA LYSIS , COMPL ETE nitrite, urine NEGATI VE negati ve Not Available [facility] ([facility]) [address] [facility], [place], [address], 09/01/2024 08:23:51 08/31/19 25 09/01/2024 URINA LYSIS , COMPL ETE microscopic examination COMMEN T Micro scopi c follo ws if indic ated. Not Available [facility] ([facility]) [address] [facility], [place], [address], 09/01/2024 08:23:51 08/31/19 25 09/01/2024 URINA LYSIS , COMPL ETE microscopic examination SEE BELOW: Micro scopi c was indic ated and was perfo rmed. Not Available [facility] ([facility]) [address] [facility], [place], [address], 09/01/2024 08:23:51 08/31/19 25 08/31/2024 CBC WITH DIFFE RENTI AL/PL ATELE T WBC 6.8 x10e3 /uL 3.4-10 .8 Not Available [facility] ([facility]) [address] [facility], [place], [address], 09/01/2024 08:23:52 08/31/19 25 08/31/2024 CBC WITH DIFFE RENTI AL/PL ATELE T RBC 4.03 x10e6 /uL 3.77-5 .28 Not Available [facility] ([facility]) [address] [facility], [place], [address], 09/01/2024 08:23:52 08/31/19 25 08/31/2024 CBC WITH DIFFE RENTI AL/PL ATELE T hemoglobin 12.9 g/dL 11.1-1 5.9 Not Available [facility] ([facility]) [address] [place], [address], 09/01/2024 08:23:52 08/31/19 25 08/31/2024 CBC WITH DIFFE RENTI AL/PL ATELE T hematocrit 39.7 % 34.0-4 6.6 Not Available [facility] ([facility]) [address] [facility], [place], [address], 09/01/2024 08:23:52 08/31/19 25 08/31/2024 CBC WITH DIFFE RENTI AL/PL ATELE T MCV 99 fL 79-97 above high normal Not Available [facility] ([facility]) [address] [facility], [place], [address], 09/01/2024 08:23:52 08/31/1908/31/2024 CBC WITH DIFFE RENTI AL/PL ATELE T MCH 32.0 pg 26.6-3 3.0 Not Available [facility] ([facility]) [address] [place], [address], 09/01/2024 08:23:52 08/31/1908/31/2024 CBC WITH DIFFE RENTI AL/PL ATELE T MCHC 32.5 g/dL 31.5-3 5.7 Not Available [facility] ([facility]) [address] [place], [address], 09/01/2024 08:23:52 08/31/1908/31/2024 CBC WITH DIFFE RENTI AL/PL ATELE T RDW 11.7 % 11.7-1 5.4 Not Available [facility] ([facility]) [address] [place], [address], 09/01/2024 08:23:52 08/31/19 25 08/31/2024 CBC WITH DIFFE RENTI AL/PL ATELE T platelets 228 x10e3 /uL 150-45 0 Not Available [facility] ([facility]) [address] [facility], [place], [address], 09/01/2024 08:23:52 08/31/19 25 08/31/2024 CBC WITH DIFFE RENTI AL/PL ATELE T neutrophils 40 % notest ab. Not Available [facility] ([facility]) [address] [facility], [place], [address], 09/01/2024 08:23:52 08/31/19 25 08/31/2024 CBC WITH DIFFE RENTI AL/PL ATELE T lymphs 52 % notest ab. Not Available [facility] ([facility]) [address] [facility], [place], [address], 09/01/2024 08:23:52 08/31/19 25 08/31/2024 CBC WITH DIFFE RENTI AL/PL ATELE T monocytes 7 % notest ab. Not Available [facility] ([facility]) [address] [facility], [place], [address], 09/01/2024 08:23:52 08/31/19 25 08/31/2024 CBC WITH DIFFE RENTI AL/PL ATELE T eos 1 % notest ab. Not Available [facility] ([facility]) [address] [facility], [place], [address], 09/01/2024 08:23:52 08/31/19 25 08/31/2024 CBC WITH DIFFE RENTI AL/PL ATELE T basos 0 % notest ab. Not Available [facility] ([facility]) [address] [facility], [place], [address], 09/01/2024 08:23:52 08/31/19 25 08/31/2024 CBC WITH DIFFE RENTI AL/PL ATELE T neutrophils (absolute) 2.7 x10e3 /uL 1.4-7. 0 Not Available [facility] ([facility]) [address] [facility], [place], [address], 09/01/2024 08:23:52 08/31/19 25 08/31/2024 CBC WITH DIFFE RENTI AL/PL ATELE T lymphs (absolute) 3.5 x10e3 /uL 0.7-3. 1 above high normal Not Available [facility] ([facility]) [address] [facility], [place], [address], 09/01/2024 08:23:52 08/31/19 25 08/31/2024 CBC WITH DIFFE RENTI AL/PL ATELE T monocytes(ab solute) 0.5 x10e3 /uL 0.1-0. 9 Not Available [facility] ([facility]) [address] [facility], [place], [address], 09/01/2024 08:23:52 08/31/19 25 08/31/2024 CBC WITH DIFFE RENTI AL/PL ATELE T eos (absolute) 0.1 x10e3 /uL 0.0-0. 4 Not Available [facility] ([facility]) [address] [facility], [place], [address], 09/01/2024 08:23:52 08/31/19 25 08/31/2024 CBC WITH DIFFE RENTI AL/PL ATELE T baso (absolute) 0.0 x10e3 /uL 0.0-0. 2 Not Available [facility] ([facility]) [address] [facility], [place], [address], 09/01/2024 08:23:52 08/31/19 25 08/31/2024 CBC WITH DIFFE RENTI AL/PL ATELE T immature granulocytes 0 % notest ab. Not Available [facility] ([facility]) [address] [facility], [place], [address], 09/01/2024 08:23:52 08/31/19 25 08/31/2024 CBC WITH DIFFE RENTI AL/PL ATELE T immature grans (abs) 0.0 x10e3 /uL 0.0-0. 1 Not Available [facility] ([facility]) [address] [facility], [place], [address], 09/01/2024 08:23:52 08/31/19 25 09/01/2024 VITAM IN D, 25-HY DROXY vitamin D, [...] IOM (Inst itute of Medic ine). 2009. David ry refer ence kia es for calci um and D. Isabela guzman [place]: The Natio n[facility] . 2. Rochelle emerson [place], Unique garza [place], Kate off-F errar i MEDINA, et al. Evalu ation , treat ment, and preve ntion of vitam in D defic iency : an Endoc rine Socie ty clini maria guadalupe pract ice guide line. JCEM. 2010; 96(7) :1911 -30. Not Available [facility] ([facility]) [address] [facility], [place], [address], 09/01/2024 08:23:53 09/14/19 25 09/14/2024 MAMMO , scree lupe, bilat eral No observ ation record ed. [address], [address], 09/14/2024 11:16:32 09/14/19 25 09/14/2024 MAMMO , scree lupe, bilat eral No observ ation record ed. [address], [address], 09/15/2024 14:05:01 09/28/19 25 09/14/2024 MAMMO , scree lupe, bilat eral No observ ation record ed. [facility] [address] [facility] [address], [place], [address], 09/28/2024 15:11:36 09/28/19 25 09/14/2024 MAMMO , scree lupe, bilat eral No observ ation record ed. [facility] [address] [facility] [address], [place], [address], 09/28/2024 18:47:04 11/08/19 25 09/14/2024 MAMMO , scree lupe, bilat eral No observ ation record ed. [facility]) [address], [place], [address], 11/08/2024 15:56:13 Result Notes None recorded. 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 86874079 Completed 201705/24/2024 Allegra Chapin MD Attn: Accounting ,[address] [place], [address] , [facility] 4 15:08:19 Hyperthyr oidism 51293630 Active 2017 Allegra Chapin MD Attn: Accounting ,[address] [place], [address] , [facility] 4 15:08:50 Genital herpes simplex 29414297 Active 2017 Not Available [facility] 3 00:16:51 Degenerat darrell joint disease of hand 77829636 Completed 201905/24/2024 Allegra Chapin MD Attn: Accounting ,[address] [facility], [place], [place], [address] [place] [address] , [place] - [facility] 4 15:08:24 Serum creatinin e above reference range 275383346 Active 2019 Not Available [facility] 3 00:16:51 Group B Streptoco ccus carrier 45188789548 03 Completed 202005/24/2024 Allegra Chapin MD Attn: Accounting ,[address] [place], [place], [address] [place] [address] , [place] [facility] 4 15:08:34 History of hyperthyr oidism 662955307 Active 2020 Allegra Chapin MD Attn: Accounting ,[address] [place], [place], [address] [place] [address] , [facility] 4 15:08:43 SARS-CoV- 2 mRNA vaccine declined 7941390197 Active 2021 Not Available [facility] 3 00:16:50 Impaired fasting glycemia 568873623 Active 2024 Ye Garcia MD Attn: Accounting ,[address] [place], [place], [address] [place] [address] , [facility] 5 12:26:44 Excessive cerumen in ear canal 899028832 Completed 02/16/2018 Salazar yip [place] - [facility] 8 10:44:07 Palpitati ons 55698632 Completed 02/16/2018 Salazar yip [place] - [facility] 8 10:44:02 Problem Notes None recorded. Procedures Surgical History Date Name Laterality Status Provider Name and Address Organization Details Recorded Time 3 Date of Last Mammogram completed RASHEED Lynne - [facility] 06/16/2023 09:14:34 1 excision of bunion completed RASHEED Helton - [facility] 11/28/2021 09:59:40 1 Date of Last Pap Smear completed RASHEED Lynne - [facility] 04/18/2022 10:50:06 1 Depo Injection completed Lashaun Hay [place] - [facility] 08/24/2020 16:33:19 0 Depo Injection completed L[place]un Hay [place] [facility] 04/27/2020 15:10:14 0 Depo Injection completed L[place]un Hay [place] [facility] 10/07/2019 16:57:24 9 Depo Injection completed L[place]un Hay [place] [facility] 04/15/2019 11:41:44 9 Depo Injection completed L[place]un Hay [place] [facility] 08/06/2018 16:08:42 8 Depo Injection completed L[place]un [place] [facility] 05/14/2018 15:51:28 7 Depo Injection completed Shila Davey [place] [facility] 03/20/2017 15:52:17 delivery completed Ye Garcia MD Attn: Accounting,[address] [place], [address], [place] [facility] 09/13/2018 17:01:07 Imaging Results Imaging Date Name Status LastModified by Organiz ation Details LastModified Time 09/14/2024 MAMMO, screening, bilateral completed [address], [address], 09/14/2024 11:16:32 09/14/2024 MAMMO, screening, bilateral completed [address] [place] [address], [address], 09/15/2024 14:05:01 09/14/2024 MAMMO, screening, bilateral completed [address], [address], 09/28/2024 15:11:36 09/14/2024 MAMMO, screening, bilateral completed [address], [address], 09/28/2024 18:47:04 09/14/2024 MAMMO, screening, bilateral completed [facility] ([facility]amm[facility]) [address], [place], [address], 11/08/2024 15:56:13 Procedure Notes None recorded. Medical Equipment None Reported. Allergies Allergen ID Allergen Name Allergen Category Reaction Reaction Severity Criticality Documentation Date Start Date Code Code System Note Provider Name and Address Organization Details Recorded Time 756277 No known allergy (situatio n) Not available Not available Not available Not available 06/02/2023 23964 6003 SNOMED Not Available Not Available Not Available No known drug allergies Medications Name Sig Start Date Stop Date Status Note LastModified by Organization Details LastModified Time multivita min tablet Take 1 tablet every day by oral route. 12/31 completed Not Available Not Available Not Available cyclobenz aprine 10 mg tablet 11/22 completed Not Available Not Available Not Available amoxicill in 500 mg capsule TAKE 1 CAPSULE BY MOUTH 4 TIMES DAILY UNTIL ALL TAKEN active Not Available Not Available No t Available Mapap Extra Strength 500 mg tablet [...] Not Available Vitals Date Recorded Body height Provider Name an d Address Organization Details Last Updated DateTime 02/22/2024 157.48 cm RASHEED Lynne [facility] 2023 10:20:47 Date Recorded Body height Provider Name an d Address Organization Details Last Updated DateTime 05/19/2024 157.48 cm Hillary Bazan [place] [facility] 2023 10:03:13 Date Recorded Body mass index (BMI) Body weight Provider Name and Address Organization Details Last Updated DateTime 05/19/2024 26.3 kg/m2 19288.3 g Betty Montez LPN [facility] 05/19/2024 10:29:15 Date Recorded Body height Provider Name an d Address Organization Details Last Updated DateTime 08/11/2024 157.48 cm Hillary Bazan MA [facility] 2024 10:05:46 Date Recorded Body height Body mass index (BMI) Body weight Provider Name and Address Organization Details Last Updated DateTime 10/26/2024 157.48 cm 27.1 kg/m2 94640.67 g Hillary Bazan MA [facility] 10/26/2024 10:20:57 Social History Question Answer Notes LastModified by Organizat ion Details LastModified Time Tobacco Smoking Status Never Smoker Hillary Bazan MA null, [facility] 08/10/2014 11:11:50 Do You Have An Advance [...] available 11/22/2020 Are You Currently Employed? Yes [email or web address] Information not available 06/08/2018 Are You Deaf Or Do You Have Serious Difficulty Hearing? No Information not available 11/22/2020 What Type Of Diet Are You Following? REGULAR [email or web address] Information not available 06/08/2018 Which Illicit Or Recreational Drugs Have You Used? None Information not available 09/13/2018 Do You Or Have You Ever Used E-cigarettes Or Vape? 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 No Information not available 11/22/2020 Live Alone Or With Others? With Others Information not available 06/08/2018 Marital Status Single Informatio n not available 08/10/2014 What Was The Date Of Your Most Recent Tobacco Screening? 02/22/2024 Information not available 02/22/2024 How Many Children Do You Have? 2 Information not available 08/10/2014 Performs Monthly Self-breast Exam? Yes Information not available 12/02/2016 What Is Your Relationship Status? Single [email or web address] Information not available 06/08/2018 Do You Use [...] 11/22/2020 What is your exercise level? 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 Age at First Child 17 Frequency [...] 100 mcg/0.5mL dose or 50 mcg/0.25mL dose completed Not Available [facility] 05/28/2023 00:16:51 COVID-19, mRNA, LNP-S, PF, 100 mcg/0.5mL dose or 50 mcg/0.25mL dose 1 completed Not Available [facility] 05/28/2023 00:16:51 MMR 6 completed Not Available [facility] 05/28/2023 00:16:51 DTP 7 completed Not Available [facility] 05/28/2023 00:16:51 DTP 7 completed Not Available [facility] 05/28/2023 00:16:51 DTP 6 completed Not Available [facility] 05/28/2023 00:16:51 DTP 8 completed Not Available [facility] 05/28/2023 00:16:51 OPV 7 completed Not Available [facility] 05/28/2023 00:16:51 OPV 7 completed Not Available [facility] 05/28/2023 00:16:51 OPV 6 completed Not Available [facility] 05/28/2023 00:16:51 OPV 8 completed Not Available [facility] 05/28/2023 00:16:51 Influenza, split virus, quadrivalent, preservative 7 completed Not Available [facility] 08/20/2019 02:34:50 HPV9 8 completed Not Available [facility] 08/20/2019 02:43:42 Influenza, split virus, quadrivalent, preservative 8 completed Not Available [facility] 08/20/2019 02:50:29 Influenza, split virus, quadrivalent, preservative 0 completed RASHEED Marks, [place] - [facility] 08/30/2019 12:36:49 Influenza, split virus, quadrivalent, preservative 0 completed RASHEED [place] [facility] 04/23/2020 14:43:05 Influenza, split virus, quadrivalent, preservative 1 completed Rosanna Cooper [place], [place] [facility] 05/15/2021 15:48:33 Influenza, split virus, quadrivalent, preservative 6 completed Not Available [facility] 05/28/2023 00:16:51 Influenza, split virus, quadrivalent, preservative 3 completed Ye Garcia MD Attn: Accounting,[address] [facility], [place], [address], [facility] 04/30/2023 12:28:01 Tdap 6 completed Not Available [facility] 08/20/2019 02:42:00 Influenza, split virus, trivalent, preservative 6 completed Not Available [facility] 08/20/2019 02:51:04 Past Encounters Encounter ID Performer Location Encounter Start Date Encounter Closed Date Diagnosis/Indication Diagnosis SNOMED-CT Code Diagnosis ICD10 Code Diagnosis Note [id number] Paul Tirado HC (REPAIR CLERK) [address] [place] [address] [id number] 0 08/10/2014 10:41:41 08/10/2014 11:43:45 Uses depot contraception 682813995 No problems presently. [id number] RASHEED Lynne (REPAIR CLERK) [address] [place] [address] [id number] 0 11/06/2014 15:21:45 11/06/2014 15:44:31 Uses depot contraception 504468140 No problems presently. [id number] RASHEED Lynne (REPAIR CLERK) [address] [place] [address] [id number] 0 02/05/2015 15:03:11 02/05/2015 15:34:16 Uses depot contraception 191555201 No problems presently. Plan annual exam at time of next scheduled depot injection. [id number] Candida (REPAIR CLERK) [address] [place] [address] [id number] 0 05/08/2015 10:16:57 05/08/2015 11:49:12 Gynecologic examination 02536853 Z01.419 Uses depot contraception 859573541 Z30.42 No problems presently. Plan annual exam at time of next scheduled depot injection. [id number] Melody Tirado (REPAIR CLERK) [address] [place] [address] [id number] 0 05/09/2015 14:01:09 05/09/2015 14:12:21 Uses depot contraception 266116070 Z30.42 No problems presently. Plan annual exam at time of next scheduled depot injection. [id number] FELICIA Knowles (REPAIR CLERK) [address] [place] [address] [id number] 0 08/02/2015 14:24:46 08/02/2015 15:11:26 Uses depot contraception 383018849 Z30.42 No problems presently. Plan annual exam at time of next scheduled depot injection. [id number] MD Candida Hoff (Adult Med) [address] [place] [address] [id number] 0 09/14/2015 10:14:20 09/14/2015 17:56:53 General examination of patient 518702280 Z00.00 35 y/o BF who I last saw 05/26/2013 Active or passive immunization 341334937 Z23 Excessive cerumen in ear canal 416074218 H61.23 Palpitations 04780354 R0 0.2 Prior history of palpitatio ns, she was evaluated by cardiology . She denies any further symptoms. [id number] RASHEED Storey HC (REPAIR CLERK) [address] [place] [address] [id number] 0 11/02/2015 14:28:31 11/05/2015 12:40:52 Uses depot contraception 419386243 Z30.42 No problems presently. Plan annual exam at time of next scheduled depot injection. [id number] RASHEED Lynne HC (REPAIR CLERK) [address] [place] [address] [id number] 0 05/21/2016 10:07:52 05/21/2016 11:44:10 Uses depot contraception 045227539 Z30.42 No problems presently. Gynecologi c examination 19484178 Z01.210 [id number] FELICIA Knowles (REPAIR CLERK) [address] [place] [address] [id number] 0 08/20/2016 14:28:15 08/20/2016 15:54:08 Contraception care 191800816 Z30.40 [id number] RASHEED Lynne HC (REPAIR CLERK) [address] [place] [address] [id number] 12/02/2016 15:13:07 12/03/2016 13:30:02 Uses depot contraception 689038668 Z30.42 counseled about risks and benefits of prolonged use of depo provera and effect on bone mineral density. Advised to take calcium and vitamin D. Surveillan ce of contraception 644356282 Z30.40 counseled about risks and benefits of [...] sex counseling and advised to use condoms. 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 [id number] RASHEED Call (REPAIR CLERK) [address] [place] [address] 03/20/2017 15:16:12 03/20/2017 15:57:28 Uses depot contraception 181410244 Z30.42 [id number] MD Candida Hoff (Adult Med) [address] [place] [address] [id number] 0 03/26/2017 14:25:52 03/26/2017 16:42:57 Low back pain 480292022 M54.5 Pain in lower limb 33053 006 M79.604 M79.605 MSK or a radiculopa thy from her back Venous varices 745920711 I83.91 Kidney disease 86206291 N08 Impaired f asting glycemia 225674271 R73.01 [id number] MD Candida Maldonado (REPAIR CLERK) [address] [place] [address] [id number] 0 07/07/2017 12:18:29 07/07/2017 17:34:57 Uses depot contraception 737636714 Z30.42 counseled about risks and benefits of [...] sex counseling and advised to use condoms. [id number] RASHEED Sharma (REPAIR CLERK) [address] [place] [address] [id number] 0 07/10/2017 15:10:19 07/13/2017 13:37:25 Contraception care management 915818611 Z30.9 [id number] MD Candida Hoff (Adult Med) [address] [place] [address] [id number] 0 07/16/2017 14:22:56 07/16/2017 14:55:55 Administration of influenza vaccine 52738833 Z23 Palpitations 84539511 R0 0.2 Improved, 2 episodes since the recent loss of her grandmothe r Generalize d anxiety disorder 12059994 F41.1 Counseling ExerciseSt art Citalopram , side effects were discussed in detail. Normal grief reaction 27 4069871 F43.20 Goiter 2144220 E04.9 [id number] Salazar Tirado (REPAIR CLERK) [address] [place] [address] [id number] 0 10/20/2017 14:21:17 10/20/2017 15:23:05 Family planning surveillance 066840675 Z30.09 [id number] [facility] ([facility]PAIR [facility] [address] [place] [address] [id number] 0 02/16/2018 09:40:48 02/16/2018 11:03:16 Gynecologic examination 06326899 Z01.419 Exposure t o sexually transmissible disorder 766502413 Z20.2 Uses depot contraception 521288809 Z30.42 High risk sexual behavior 769857749 Z72.51 Screening mammography 24 975751 Z12.31 Hyperthyroidism 39137887 E05.90 Candidiasis of vagina 72 647912 B37.3 [id number] RASHEED Storey (REPAIR CLERK) [address] [place] [address] [id number] 0 05/14/2018 14:18:17 05/17/2018 11:32:19 Family planning surveillance 127378838 Z30.09 [id number] RASHEED Storey (REPAIR CLERK) [address] [place] [address] [id number] 0 06/08/2018 15:45:04 06/08/2018 17:27:34 Family planning surveillance 627941820 Z30.09 Genital he rpes simplex 65157506 A60.9 Exposure t o sexually transmissible disorder 385481519 Z20.2 Hyperthyroidism 80364210 E05.90 Goiter 6047490 E04.9 Active or passive immunization 337513976 Z23 0, 2, and 6 month series. [id number] RASHEED Storey (REPAIR CLERK) [address] [place] [address] [id number] 0 08/06/2018 14:48:22 08/09/2018 12:08:47 Family planning surveillance 603647048 Z30.09 [id number] MD Candida Hoff (Adult Med) [address] [place] [address] [id number] 0 09/13/2018 16:24:54 09/14/2018 09:02:36 General examination of patient 682653349 Z00.01 Screening for malignant neoplasm of breast 069724791 Z12.31 Goiter 5482451 E04.9 [id number] RASHEED Wilson (REPAIR CLERK) [address] [place] [address] [id number] 0 10/29/2018 09:55:45 10/29/2018 12:54:27 Depot contraceptive-no problem 618322417 Z30.42 [id number] RASHEED Wilson (REPAIR CLERK) [address] [place] [address] [id number] 0 01/21/2019 09:57:22 01/21/2019 12:08:32 Depot contraceptive-no problem 408734369 Z30.42 [id number] RASHEED Storey (REPAIR CLERK) [address] [place] [address] [id number] 0 04/15/2019 11:13:03 04/18/2019 12:35:27 Family planning surveillance 337652956 Z30.09 [id number] RASHEED Lynne (REPAIR CLERK) [address] [place] [address] [id number] 0 07/08/2019 10:16:41 07/08/2019 10:42:46 Depot contraceptive-no problem 979894476 Z30.42 [id number] MD Candida Hoff HC (Adult Med) [address] [place] [address] [id number] 0 08/30/2019 10:50:55 08/31/2019 14:21:58 General examination of patient 565097746 Z00.01 Goiter 5247707 E04.9 Screening for malignant neoplasm of breast 501915313 Z12.31 Administra tion of influenza vaccine 77093614 Z23 Serum crea tinine above reference range 682151888 R79.89 Recheck [id number] RASHEED Storey (REPAIR CLERK) [address] [place] [address] [id number] 0 10/07/2019 16:10:32 10/07/2019 16:36:51 Family planning surveillance 904274107 Z30.09 [id number] RASHEED Church (REPAIR CLERK) [address] [place] [address] [id number] 0 01/06/2020 15:39:32 01/09/2020 07:01:54 Family planning surveillance 031634109 Z30.09 [id number] MD Candida Hoff (Adult Med) [address] [place] [address] [id number] 0 03/06/2020 15:54:30 03/07/2020 10:29:44 Serum creatinine above reference range 438415898 R79.89 Recheck Degenerati ve joint disease of hand 95712616 M19.049 Goiter 9009363 E04.9 Pain of ri ght shoulder joint 6215493733 8571875 M25.357 [id number] MD Candida Hoff (Adult Med) [address] [place] [address] [id number] 0 03/15/2020 15:42:51 03/16/2020 09:04:00 Low back strain 474143344 S39.012A Serum crea tinine above reference range 042741395 R79.89 [id number] MD Candida Hoff (Adult Med) [address] [place] [address] 79414-417 0 04/23/2020 14:16:59 04/24/2020 11:12:01 Administration of influenza vaccine 24773150 Z23 Pain of ri ght shoulder joint 7294201667 2549449 M25.511 Improvemen t noted [id number] Salazar Tirado (REPAIR CLERK) [address] [place] [address] [id number] 0 04/26/2020 14:49:17 04/26/2020 20:29:15 Family planning surveillance 883835012 Z30.09 [id number] RASHEED Storey HC (REPAIR CLERK) [address] [place] [address] [id number] 0 04/27/2020 14:49:33 04/30/2020 09:47:45 Family planning surveillance 624958978 Z30.09 [id number] RASHEED Storey (REPAIR CLERK) [address] [place] [address] [id number] 0 08/24/2020 16:03:37 08/25/2020 21:33:46 Family planning surveillance 848057752 Z30.09 [id number] FELICIA Marsh (REPAIR CLERK) [address] [place] [address] [id number] 0 11/09/2020 15:44:01 12/03/2020 08:44:42 Uses depot contraception 016893701 Z30.42 [id number] MD Candida Hoff (Adult Med) [address] [place] [address] [id number] 0 11/22/2020 14:47:21 11/23/2020 13:00:12 Foot callus 833137858 L84 Pain in both feet 555452 1717 4610629 M79.671 M79.672 Verruca plantaris 406696 08 B07.0 Hallux dilan horacio AND bunion 493919075 M20.11 Anxiety 97277058 F41.9 [id number] FELICIA Marsh (REPAIR CLERK) [address] [place] [address] [id number] 0 02/01/2021 09:40:52 02/01/2021 15:57:54 Family planning surveillance 268930044 Z30.09 Contraception care 04409 5005 Z30.40 [id number] Salazar Zabala Candida (REPAIR CLERK) [address] [place] [address] [id number] 0 05/06/2021 11:23:15 05/07/2021 10:52:55 Family planning surveillance 598832043 Z30.09 Gynecologi c examination 26450053 Z01.419 Z11.51 Screening mammography 24 463471 Z12.31 Bacterial vaginosis 4197 35259 N76.0 Exposure t o sexually transmissible disorder 350946871 Z20.2 [id number] MD Candida Hoff (Adult Med) [address] [place] [address] [id number] 0 05/15/2021 14:47:00 05/16/2021 12:45:38 Needs influenza immunization 044890172 Z28.3 History of hyperthyroidism 804687368 Z86.39 Pre-surger y evaluation 892290794 Z01.818 Low risk unless her tests come back abnormal.H er surgeon has requested an EKG General ex amination of patient 805437504 Z00.01 [id number] Alberto Tirado (REPAIR CLERK) [address] [place] [address] 55138-162 0 08/09/2021 10:49:14 08/10/2021 14:22:32 Contraception care 802407327 Z30.40 [id number] RASHEED Lynne HC (REPAIR CLERK) [address] [place] [address] [id number] 0 11/01/2021 10:44:11 11/04/2021 13:22:41 Depot contraceptive-no problem 252463086 Z30.42 [id number] MD Candida Hoff (Adult Med) [address] [place] [address] [id number] 0 11/28/2021 09:37:48 11/29/2021 07:33:11 Goiter 3737787 E04.9 Intolerant of cold 15289 000 R68.89 Blood in urine 32809199 R31.9 Serum crea tinine above reference range 273390588 R79.89 Screening for malignant neoplasm of breast 569454528 Z12.31 SARS-CoV-2 mRNA vaccine declined 4076359236 Z28.21 [id number] RASHEED Amin HC (REPAIR CLERK) [address] [place] [address] 08309-334 0 01/31/2022 09:47:53 02/04/2022 14:16:58 Contraception care 675804913 Z30.40 [id number] SAMUEL POLLOCK HC (REPAIR CLERK) [address] [place] [address] 53530-041 0 04/18/2022 10:40:23 05/01/2022 10:15:40 Screening for malignant neoplasm of breast 605951339 Z12.31 Last mammogram 05/2021, BIRADS 1. Annual screening order provided. Contracept ion care management 861499801 Z30.9 MCC use of Depo. Long discussion on risks of decreased BMD with Depo use. Discussed different control options with patient including R/B/A/I. Pt will proceed with injection today, but is aware that she will need to get bone density screening before continuing with Depo. If abnormal, will discontinu e and switch to alternativ e. Pt agreeable. Screening for osteoporosis 355457615 Z13.820 Pt on Depo for 17+ yrs, warrants screening given risk of decreased BMD. [id number] RASHEED Church (REPAIR CLERK) [address] [place] [address] 76482-763 0 07/23/2022 16:02:49 07/31/2022 15:36:48 Contraception care 276395485 Z30.40 [id number] SAMUEL POLLOCK (REPAIR CLERK) [address] [place] [address] [id number] 0 10/10/2022 09:35:58 10/28/2022 09:10:41 Depot contraceptive-no problem 104465335 Z30.42 Other options of contracept nitin discussed, pt happy with Depo and not interested in switching. Advised Depo contracept ion can increase risk of osteoporos is thus take Ca w/ Vit D supplement ation and consider alternativ e contracept darrell. BMD normal Apr 2022 (T score 0.5). Will continue depo contracept ion. RTC every 3 months for injection. [id number] SAMUEL POLLOCK (REPAIR CLERK) [address] [place] [address] 06534-527 0 12/31/2022 08:39:34 01/02/2023 11:18:34 Depot contraceptive-no problem 121724834 Z30.42 Other options of contracept nitin discussed, pt happy with Depo and not interested in switching. Advised Depo contracept ion can increase risk of osteoporos is thus take Ca w/ Vit D supplement ation and consider alternativ e contracept darrell. BMD normal Apr 2022 (T score 0.5). RTC every 3 months for injection. [id number] MD Candida Hoff (Adult Med) [address] [place] [address] [id number] 0 04/30/2023 10:01:59 05/01/2023 14:57:51 Goiter 2930829 E04.9 Serum crea tinine above reference range 798915503 R79.89 Ganglion c yst of right wrist 2490500291 34400 M67.431 Administra tion of influenza vaccine 34041625 Z23 Screening for malignant neoplasm of breast 000954687 Z12.31 Intolerant of cold 92135 000 R68.89 Bilateral instability of joints of knees 5063103649 9097944 M25.361 M25.362 General ex amination of patient 997020778 Z00.01 Umbilical hernia 8951537 07 K42.9 [id number] SAMUEL POLLOCK (REPAIR CLERK) [address] [place] [address] 61959-049 0 03/26/2023 11:12:31 04/01/2023 09:51:57 Depot contraceptive-no problem 726317467 Z30.8 Other options of contracept nitin discussed, pt happy with Depo and not interested in switching. Advised Depo contracept ion can increase risk of osteoporos is thus take Ca w/ Vit D supplement ation and consider alternativ e contracept darrell. BMD normal Apr 2022 (T score 0.5). RTC every 3 months for injection. [id number] MD Candida Hoff (Adult Med) [address] [place] [address] 85120-592 0 06/02/2023 09:18:29 06/03/2023 10:13:50 Mammography abnormal 791848952 R92.8 Discussed in detail Note from 05/26/2023 US 05/26/2023 ; Right Complicate d cyst, Left, Complicate d cyst or mass (Benign?)6 month follow up recommende Mariella will have her seen by the breast surgeon.Mariella scussed with Ms Shah on 05/26/2023 at 11:38AM Note from 05/15/2023 MMG 05/15/2023 , Extremely dense breasts. NL but an US was recommende d Body mass index 25-29 - overweight 767419673 Z68.25 Overweight 482316376 E66 .3 Abnormal urinalysis 1672 33756 R82.90 Impaired f asting glycemia 507598530 R73.01 [id number] RASHEED Lynne (REPAIR CLERK) [address] [place] [address] 81230-913 0 06/16/2023 09:01:56 06/18/2023 09:42:42 Depot contraceptive-no problem 439741184 Z30.8 [id number] MD Candida ROLAND (REPAIR CLERK) [address] [place] [address] [id number] 0 09/01/2023 10:32:48 09/04/2023 12:24:34 Contraception care management 541287267 Z30.9 Depot contraceptive-no problem 412438285 Z30.42 [id number] MD [facility] ([facility]PAIR [facility]) [address] [place] [address] 33731-967 0 11/23/2023 10:33:46 12/02/2023 16:14:25 Abnormal vaginal bleeding 627059029 N93.9 Given this has only happened one time, will monitor for now.Patimc sneed will get depot today and if bleeding continues to be irregular over the next 3 months, will do work up for AUB including USIf bleeding becomes even worse, she should come for a visit sooner than 3 monthsRetu rn precaution s discussed with patient Depot contraceptive-no problem 680978913 Z30.013 Breast cx risk low, no hx of migraine w/ aura and no hx of DVT or clotting disordersC ontinue Vit D and calcium supplement sDiscussed risks of custodial Depot use and patient expressed understand ing and is willing to take the riskWill continue administra tion for nowCan consider early DEXA scan [id number] MD Candida Hoff (Adult Med) [address] [place] [address] [id number] 0 12/01/2023 09:37:30 12/02/2023 15:01:32 Mammography abnormal 159685466 R92.8 Follow up US OV 06/02/2023 Discussed in detail Note from 05/26/2023 US 05/26/2023 ; Right Complicate d cyst, Left, Complicate d cyst or mass (Benign?)6 month follow up recommende dI will have her seen by the breast surgeon.Mariella scussed with Ms Shah on 05/26/2023 at 11:38AM Note from 05/15/2023 MMG 05/15/2023 , Extremely dense breasts. NL but an US was recommende d Impaired f asting glycemia 173102596 R73.01 Discussed [id number] RASHEED Lynne (REPAIR CLERK) [address] [place] [address] [id number] 0 02/22/2024 09:46:38 03/07/2024 14:46:30 Surveillance of depot contraception done 5124316167 9104 Z30.42 [id number] MD Candida Zarate (REPAIR CLERK) [address] [place] [address] 71261-138 0 05/19/2024 09:35:48 06/02/2024 16:32:28 Contraception care management 396967221 Z30.9 [id number] RASHEED Lynne (REPAIR CLERK) [address] [place] [address] 67939-089 0 08/11/2024 09:44:39 08/31/2024 15:20:09 Surveillance of depot contraception done 2675123038 9104 Z30.42 [id number] MD Candida Hoff (Adult Med) [address] [place] [address] 45545-125 0 08/12/2024 10:17:15 09/10/2024 09:36:22 Mammography abnormal 348578291 R92.8 MMGUS 12/08/2023 -ve OV 11/23/2023F ollow up US OV 06/02/2023 Discussed in detail Note from 05/26/2023 US 05/26/2023 ; Right Complicate d cyst, Left, Complicate d cyst or mass (Benign?)6 month follow up recommende Mariella will have her seen by the breast surgeon.Mariella scussed with Ms Shah on 05/26/2023 at 11:38 AM Note from 05/15/2023 MMG 05/15/2023 , Extremely dense breasts. NL but an US was recommende d Impaired f asting glycemia 683810876 R73.01 HBA1c 5.9% on 12/01/2023 Screening mammography of bilateral breasts 5657629615 93946 Z12.31 Adult heal th examination 839262652 Z00.01 [id number] RASHEED Lynne (REPAIR CLERK) [address] [place] [address] [id number] 0 10/26/2024 09:48:01 11/01/2024 12:43:43 Surveillance of depot contraception done 5205721752 9104 Z30.42 Health Concerns Section Related Observation LastModified by Organization Detai ls LastModified Time None Recorded Concern Status LastModified by Organization Details LastModified Time None Recorded Advance Directives Directive N: Payers Encounter Date Sequence Insurance Name Policy Number Policy Crawley Covered Member ID Crawley Member ID Guarantor Name 02/22/2024 1 [facility] (MEDICAID HMO) [id number] Angie Shah [id number] Angie Shah 08/11/2024 1 [facility] [id number] Angie Shah [id number] Angie Shah 08/12/2024 1 [facility] [id number] Angie Shah [id number] Angie Shah 10/26/2024 1 [facility] [id number] Angie Shah [id number] Angie Shah Notes Date Note Type Note Provider Name and Address Organization Details Recorded Time 05/19/2024 text/html 44 yo F presenting for depot shot. No acute concerns or complaints at this time.Happy with the depot and want to continue Erika Ramírez MD Attn: Accounting,[address] [place], [address], [facility] 05/29/2024 19:55:22 08/12/2024 text/html Phone visit due to the inclement weather. I was in the office It was my yearly Ms Shah is doing well, she was uninsured and unable to schedule her MMG. Ye Garcia MD Attn: Accounting,[address] [place], [address], [facility] 08/12/2024 12:41:01 OBGyn Episode Ob Episode Information Episode Created Date Number of Fetuses Patient Bloodtype Patient rh Status Prepregnancy Weight lbs Domestic Partner Domestic Partner Phone Father Name Education Sales Consultant Status 05/21/20 16 1 CLOSED Fetus Data First Name Last Name Admitted to NICU Weight (g) Sex Living Outcome Pediatric Complications Fetus ID Race Codes Race Delivery Type 2381.35 8 Full Term 00080 Vaginal Chapo Calculation Initial Chapo Date Initial [...] Complications Tubal Sterilization Discharge Date Comments 8 Regional-Ep idural 40 24 Discharge Information Feeding Method Contraceptive Method Maternal HG B and HCT Levels Ob Episode Information Episode Created Date Number of Fetuses Patient Bloodtype Patient rh Status Prepregnancy Weight lbs Domestic Partner Domestic Partner Phone Father Name Education Sales Consultant Status 05/21/20 16 1 CLOSED Fetus Data First Name Last Name Admitted to NICU Weight (g) Sex Living Outcome Pediatric Complications Fetus ID Race Codes Race Delivery Type 3401.94 Full Term 41978 Chapo Calculation Initial Chapo Date Initial Exam [...]
--- OUTSIDE RECORDS SUMMARY | 2024-11-17 12:14 | XMS_ITS | Clinical Summary ---
Author Organization [facility] Address [address] [place] [address] Care Team Providers Care Certified Diabetes Educator Name Role Phone Ye Hargroev MD Primary Care Provider Allergies No known [...] on file Legal Sex Female 8:53 PM CATEGORY ANALYST Gender Identity Not on file Sexual Orientation Not on file Obstetrics History Last Filed Vital Signs Vital Sign Reading Time Taken Comments Blood Pressure 130/92 07/02/2023 1:00 PM CATEGORY ANALYST Pulse 82 07/02/2023 1:00 PM CATEGORY ANALYST Temperature 36.8 C (98.3 F) 07/02/2023 12:30 PM CATEGORY ANALYST Respiratory Rate 18 07/02/2023 1:00 PM CATEGORY ANALYST Oxygen Saturation 97% 07/02/2023 1:00 PM CATEGORY ANALYST Inhaled Oxygen Concentration - - Weight 64 kg (141 lb) 07/02/2023 8:44 AM CATEGORY ANALYST Height 162.6 cm (5' 4 ) 07/02/2023 8:44 AM CATEGORY ANALYST Body Mass Index 24.2 07/02/2023 8:44 AM CATEGORY ANALYST Plan of Treatment Health Maintenance Due Date [...] patient's age to complete this topic Insurance [facility] Care Teams Certified Diabetes Educator Relationship Specialty Start Date End Date Ye Hargrove MD [address] [place] [address] PCP - General Internal Medicine 05/01/23
--- OUTSIDE RECORDS SUMMARY | 2024-11-17 12:14 | XMS_ITS | Referral Summary ---
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 Gender Identity Not on file Sexual Orientation Not on file Last Filed Vital Signs Vital Sign Reading Time Taken Comments Blood Pressure 130/92 07/02/2023 1:00 PM SENIOR INTEGRATION DEVELOPER Pulse 82 07/02/2023 1:00 PM SENIOR INTEGRATION DEVELOPER Temperature 36.8 C (98.3 F) 07/02/2023 12:30 PM SENIOR INTEGRATION DEVELOPER Respiratory Rate 18 07/02/2023 1:00 PM SENIOR INTEGRATION DEVELOPER Oxygen Saturation 97% 07/02/2023 1:00 PM SENIOR INTEGRATION DEVELOPER Inhaled Oxygen Concentration - - Weight 64 kg (141 lb) 07/02/2023 8:44 AM SENIOR INTEGRATION DEVELOPER Height 162.6 cm (5' 4 ) 07/02/2023 8:44 AM SENIOR INTEGRATION DEVELOPER Body Mass Index 24.2 07/02/2023 8:44 AM SENIOR INTEGRATION DEVELOPER Plan of Treatment Not on file Insurance [facility] Care Teams Pile Driver Relationship Specialty Start Date End Date Ye Hargrove MD [address] [address] PCP - General Internal Medicine 05/01/23
--- OUTSIDE RECORDS SUMMARY | 2024-11-17 12:14 | XMS_ITS | CONTINUITY OF CARE DOCUMENT ---
Author Name nicolas valenzuela Address Unknown Organization [facility] Address [address] [place] [address] Phone [phone] Care Team Providers Care Nursing Unit Manager Name Role Phone James Preston MD Unavailable [phone] DENISE GARCIA MD Unavailable DENISE GARCIA MD Unavailable [phone] PROBLEMS Condition Status Date Provider Notes CHEST PAIN UNSPECIFIED active James Preston MD PALPITATIONS active ? James Preston MD Family History of CVA or Stroke: active ? Janine Preston MD Family History of Sudden Cardiac : active ? James Preston MD HISTORY OF DRUG ABUSE- OCCASSIONAL POT active ? James Preston MD ENCOUNTERS Date Type Provider Location Encounter Diag nosis - In-person encounter Office Visit James Preston MD [facility] - In-person encounter Office Visit James Preston MD [facility] Family History of CVA or Stroke:Family History of Sudden Cardiac : - In-person encounter Office Visit James Preston MD [place] [facility] CHEST PAIN UNSPECIFIEDHISTORY OF DRUG ABUSE- [...] Location thyroid stimulating hormone, serum 0.500 u[IU]/[facility] 221 10*3/mm3 [facility] hematocrit, blood 40.7 % [facility] triglyceride, serum, fasting 40 mg/dL [facility] HDL cholesterol, serum 57 mg/dL [facility] lipoprotein, beta, serum, point, quantitative, calculated 77 mg/dL [facility] cholesterol, serum 142 mg/dL [facility] alanine aminotransferase (SGPT), serum 8 1/L [facility] aspartate aminotransferase (SGOT), serum 16 1/L [facility] creatinine, serum 0.91 mg/dL [facility] Chaitanya potassium, serum 4.6 mmol/L [facility] sodium, serum 140 mmol/L [facility] HISTORY OF MEDICATION USE Medication Status Instructions [...] Payer name Policy type / Coverage type [facility] [place] [employer] FAMILY [employer] Medicaid 0 [id number] ADVANCE DIRECTIVES Name Date DISCUSSED - NO [...] MD New Patient: O rders: E KG (CPT-59370) BP today: 136/97 Prior BP: / () James Preston MD Date Name Complete Echo Holter Monitor 24 Hr Complete Echo STR - Routine HISTORY OF PROCEDURES Procedure Date Procedure Name Provider Procedure Notes S tatus SNOMED-CT: 69255769 Physical Exam, Performed: Pulse Exam of Foot James Preston MD completed SNOMED-CT: 766134796 737460 Current Medications Documented James Preston MD completed ZIO Holter Hookup James Preston MD co mpleted SNOMED-CT: 91229561 Physical Exam, Performed: Pulse Exam of Foot James Preston MD completed EKG James Preston MD completed SNOMED-CT: 436494682 705893 Current Medications Documented James Preston MD completed EKG James Preston MD completed
== END 2024-11-17 11:21 | disposition home or self-care (01) ==
LOC: ANHIMG 11:21
PROVIDERS: PCP Internal Medicine Infectious Disease; Visit Provider Internal Medicine Infectious Disease
DX: R92.8 Other abnormal and inconclusive findings on diagnostic imaging of breast (principal)
CPT/HCPCS: 76641; 77061; 77065; G0279

== ENCOUNTER 2024-12-12 08:52 | Outpatient (CLI) | payer OTHER, SELFPAY ==
--- NOTE | ~2024-12-12 | US_ITS ---
US renal BI Ordering provider: Ye HargroveKeerthi History: . SERUM CREATININE ABOVE REF RANGE . Comparison: None. Technique: Ultrasound bilateral kidneys. Findings: RIGHT KIDNEY: Measures 9.1x 3.2x 4.4 cm in length which is normal in size. No renal cysts. No renal m ass or visualized echogenic stones. Otherwise, normal echotexture and contour. No hydronephrosis. Nor mal renal cortical thickness. LEFT KIDNEY: Measures 9.3x 4.4x 3.5 cm in length which is normal in size. No renal cysts. No renal ma ss or visualized echogenic stones. Otherwise, normal echotexture and contour. No hydronephrosis. Norm al renal cortical thickness. BLADDER: Normal. Right Ureteral jet was not seen. IMPRESSION: No significant abnormality seen. Reviewed, dictated and finalized at location A.
--- OUTSIDE RECORDS SUMMARY | 2024-12-12 08:59 | XMS_ITS | CONTINUITY OF CARE DOCUMENT ---
Author Name nicolas valenzuela Address Unknown Organization [facility] Address [address] [address] [place] [address] Phone [phone] Care Team Providers Care Mental Health Assistant Name Role Phone James Preston MD Unavailable [phone] DENISE GARCIA MD Unavailable [phone] DENISE GARCIA MD Unavailable [phone] PROBLEMS Condition Status Date Provider Notes CHEST PAIN UNSPECIFIED active James Preston MD HISTORY OF DRUG ABUSE- OCCASSIONAL POT active ? James Preston MD PALPITATIONS active ? James Preston MD Family History of CVA or Stroke: active ? Janine Preston MD Family History of Sudden Cardiac : active ? James Preston MD ENCOUNTERS Date Type Provider Location Encounter Diag nosis - In-person encounter Office Visit James Preston MD [facility] - In-person encounter Office Visit James Preston MD [facility] Family History of CVA or Stroke:Family History of Sudden Cardiac : - In-person encounter Office Visit James Preston MD [place] [facility] CHEST PAIN UNSPECIFIEDHISTORY OF DRUG ABUSE- [...] Location thyroid stimulating hormone, serum 0.500 u[IU]/[facility] count 221 10*3/mm3 [facility] hematocrit, blood 40.7 % [facility] triglyceride, serum, fasting 40 mg/dL [facility] HDL cholesterol, serum 57 mg/dL [facility] lipoprotein, beta, serum, point, quantitative, calculated 77 mg/dL [facility] cholesterol, serum 142 mg/dL [facility] alanine aminotransferase (SGPT), serum 8 1/L [facility] aspartate aminotransferase (SGOT), serum 16 1/L [facility] creatinine, serum 0.91 mg/dL [facility] Chaitanya potassium, serum 4.6 mmol/L [facility] sodium, serum 140 mmol/L [facility] HISTORY OF MEDICATION USE Medication Status [...] Payer name Policy type / Coverage type [facility] [place] [facility] AND FAMILY [employer] Medicaid 0 [id number] ADVANCE DIRECTIVES Name Date DISCUSSED - NO [...] MD New Patient: O rders: E KG (CPT-57335) BP today: 136/97 Prior BP: / () James Preston MD Date Name Complete Echo Holter Monitor 24 Hr Complete Echo STR - Routine HISTORY OF PROCEDURES Procedure Date Procedure Name Provider Procedure Notes S tatus SNOMED-CT: 84764896 Physical Exam, Performed: Pulse Exam of Foot James Preston MD completed SNOMED-CT: 881127526 668567 Current Medications Documented James Preston MD completed ZIO Holter Hookup James Presotn MD co mpleted SNOMED-CT: 93849926 Physical Exam, Performed: Pulse Exam of Foot James Preston MD completed EKG James Preston MD completed SNOMED-CT: 999349785 643576 Current Medications Documented James Preston MD completed EKG James Preston MD completed
--- OUTSIDE RECORDS SUMMARY | 2024-12-12 08:59 | XMS_ITS | Data Portability ---
Author Organization [facility] [facility] Address [address] [place] [address] Care Team Providers Care Specimen Processor Name Role Phone ELISABETH BRAMBILA Engagement Specialist SOBEIDA ROGER [employer]ck And Hull Assembler Unavailable YE GARCIA Primary Care Provider Assessment Encounter Date Assessment Date Assessment LastModified by Organization Details LastModified Time 05/19/2024 05/19/2024 44 yr old here for depot shot, no acute concerns or complaints augabi Not available 05/24/2024 15:27:55 Plan of Treatment Reminders Order Date Submit Date Provider Last Modified By Organization Details Last Modified Time Details Appointments NURSE ONLY 2024 08:30A M BHARGAVI JACKSON MD Not available Not available Not available NEW PATIENT 30 2024 11:00A M Jonny Umana MD Not available Not available Not available ANY 15 2024 08:30A M Ye Garcia MD Not available Not available Not available Lab urinalysi s macro (dipstick ) panel, urine 2024 025 [facility], [address], [address], [place], [address], 11/22/2024 06:37:17 HbA1c (hemoglob in A1c), blood 2024 025 [facility], [address], [address], [place], [address], 09/01/2024 08:23:49 CMP, serum or plasma 2024 025 [facility], [address], [address], [place], [address], 09/01/2024 08:23:47 CBC w/ auto diff 2024 025 [facility], [address], [address], [place], [address], 09/01/2024 08:23:52 lipid panel, serum 2024 025 [facility], [address], [address], [place], [address], 09/01/2024 08:23:46 vitamin D, 25-hydrox y, total, serum 2024 025 [facility], [address], [address], [place], [address], 09/01/2024 08:23:53 urinalysi s, complete 2024 025 [facility], [address], [address], [place], [address], 09/01/2024 08:23:51 test, urine 2024 025 [email or web address] In-Office Order, Internal Use Only DO Not Attach Compendium DO Not Attach Compendium, Do Not Delete/merge, [id number] 08/12/2024 12:38:31 test, urine 2023 024 [email or web address] In-Office Order, Internal Use Only DO Not Attach Compendium DO Not Attach Compendium, Do Not Delete/merge, [id number] 05/23/2024 07:50:27 Referral breast surgery referral 2024 025 [facility], [facility], [address] [place] [address], [place], [address], 12/06/2024 04:30:42 nephrolog ist referral 2024 025 [facility], [address], [place], [address], 11/24/2024 15:38:45 Procedures None recorded. Surgeries None recorded. Imaging US, breast, unilatera l - Follow up, right breast mass 2024 025 [facility], [address], [address], [place], [address], 11/21/2024 10:22:55 US, kidney - Elevated Creatinin e 2024 025 [facility] ([facility]), [address], [place], [address], 11/21/2024 10:40:29 MAMMO, screening , bilateral - Screening MMG, please. Hx of bilateral complicat ed breast cysts 2024 025 [facility], [address], [address], [place], [address], 09/14/2024 09:49:24 Medication Orders Vitamin D2 1,250 mcg (50,000 unit) capsule 2024 025 [facility], [address] [place] [address], [id number], 11/21/2024 16:15:23 medroxypr ogesteron e 150 mg/mL intramusc ular syringe 2024 025 [facility], [address] [place] [address], [id number], 10/27/2024 11:41:34 medroxypr ogesteron e 150 mg/mL intramusc ular syringe 01/09/ 2025 01/09/2 025 [email or web address], [address] [place] [address], [id number], 08/12/2024 12:38:31 medroxypr ogesteron e 150 mg/mL intramusc ular suspensio n 2023 024 [facility], [address] [place] [address], [id number], 10/03/2024 11:24:32 Patient TargetsNo targets recorded. Patient Instructions Encounter Date Encounter Id Patient Instructions Last Modified By Organization Details Last Modified Time 05/19/2024 [id number] On the date of this encounter, I was immediately available to assist the resident/fellow in the care of the patient, and have reviewed and agree with the resident s findings and plan of care. 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 breast mass Referring Physician: Ye Garcia, Internal Medicine, Encounter Date: 11/21/2024 Results Created Date Observation Date Name Description Value Unit Range Abnormal Flag Note LastModifiedBy Organization Detail LastModifiedTime 05/19/2005/19/2024 pregn essence test, urine HCG negati ve Not Available In-Office Order Internal Use Only DO Not Attach Compendium DO Not Attach Compendium, Do Not Delete/merge, [id number] 05/19/2024 10:30:41 08/11/19 25 08/11/2024 pregn essence test, urine HCG negati ve Not Available In-Office Order Internal Use Only DO Not Attach Compendium DO Not Attach Compendium, Do Not Delete/merge, [id number] 08/11/2024 10:06:05 08/31/19 25 09/01/2024 LIPID PANEL cholesterol, total 126 mg/dL 100-19 9 Not Available [facility] ([facility]) [address] [place], [address], 09/01/2024 08:23:46 08/31/19 25 09/01/2024 LIPID PANEL triglyceride s 67 mg/dL 0-149 Not Available [facility] ([facility]) [address] [place], [address], 09/01/2024 08:23:46 08/31/19 25 09/01/2024 LIPID PANEL HDL cholesterol 38 mg/dL >39 below low normal Not Available [facility] ([facility]) [address] [place], [address], 09/01/2024 08:23:46 08/31/19 25 09/01/2024 LIPID PANEL VLDL cholesterol maria guadalupe 14 mg/dL 5-40 Not Available [facility] ([facility]) [address] [place], [address], 09/01/2024 08:23:46 08/31/19 25 09/01/2024 LIPID PANEL LDL chol calc ([facility]) 74 mg/dL 0-99 Not Available [facility]) [address] [place], [address], 09/01/2024 08:23:46 08/31/19 25 09/01/2024 COMP. METAB OLIC PANEL (14) glucose 88 mg/dL 70-99 Not Available [facility] ([facility]) [address] [place], [address], 09/01/2024 08:23:47 08/31/19 25 09/01/2024 COMP. METAB OLIC PANEL (14) BUN 11 mg/dL 6-24 Not Available [facility] ([facility]) [address] [facility] [place], [address], 09/01/2024 08:23:47 08/31/19 25 09/01/2024 COMP. METAB OLIC PANEL (14) creatinine 1.23 mg/dL 0.57-1 .00 above high normal Not Available [facility] ([facility]) [address] [facility] [place], [address], 09/01/2024 08:23:47 08/31/19 25 09/01/2024 COMP. METAB OLIC PANEL (14) eGFR 55 mL/mi n/1.7 3 >59 below low normal Not Available [facility] ([facility]) [address] [facility] [place], [address], 09/01/2024 08:23:47 08/31/19 25 09/01/2024 COMP. METAB OLIC PANEL (14) BUN/creatini ne ratio 9 9-23 Not Available [facility] ([facility]) [address] [facility] [place], [address], 09/01/2024 08:23:47 08/31/19 25 09/01/2024 COMP. METAB OLIC PANEL (14) sodium 140 mmol/ L 134-14 4 Not Available [facility] ([facility]) [address] [facility] [place], [address], 09/01/2024 08:23:47 08/31/19 25 09/01/2024 COMP. METAB OLIC PANEL (14) potassium 4.6 mmol/ L 3.5-5. 2 Not Available [facility] ([facility]) [address] [facility] [place], [address], 09/01/2024 08:23:47 08/31/19 25 09/01/2024 COMP. METAB OLIC PANEL (14) chloride 106 mmol/ L 96-106 Not Available [facility] ([facility]) [address] [facility] [place], [address], 09/01/2024 08:23:47 08/31/19 25 09/01/2024 COMP. METAB OLIC PANEL (14) carbon dioxide, total 22 mmol/ L Not Available [facility] ([facility]) [address] [place], [address], 09/01/2024 08:23:47 08/31/19 25 09/01/2024 COMP. METAB OLIC PANEL (14) calcium 9.0 mg/dL 8.7-10 .2 Not Available [facility] ([facility]) [address] [place], [address], 09/01/2024 08:23:47 08/31/19 25 09/01/2024 COMP. METAB OLIC PANEL (14) protein, total 6.5 g/dL 6.0-8. 5 Not Available [facility] ([facility]) [address] [place], [address], 09/01/2024 08:23:47 08/31/19 25 09/01/2024 COMP. METAB OLIC PANEL (14) albumin 4.4 g/dL 3.9-4. 9 Not Available [facility] ([facility]) [address] [place], [address], 09/01/2024 08:23:47 08/31/19 25 09/01/2024 COMP. METAB OLIC PANEL (14) globulin, total 2.1 g/dL 1.5-4. 5 Not Available [facility] ([facility]) [address] [place], [address], 09/01/2024 08:23:47 08/31/19 25 09/01/2024 COMP. METAB OLIC PANEL (14) bilirubin, total 0.2 mg/dL 0.0-1. 2 Not Available [facility] ([facility]) [address] [place], [address], 09/01/2024 08:23:47 08/31/19 25 09/01/2024 COMP. METAB OLIC PANEL (14) alkaline phosphatase 46 IU/L 44-121 Not Available [facility]) [address] [facility], [place], [address], 09/01/2024 08:23:47 08/31/19 25 09/01/2024 COMP. METAB OLIC PANEL (14) AST (SGOT) 18 IU/L 0-40 Not Available [facility] ([facility]) [address] [facility], [place], [address], 09/01/2024 08:23:47 08/31/19 25 09/01/2024 COMP. METAB OLIC PANEL (14) ALT (SGPT) 12 IU/L 0-32 Not Available [facility] ([facility]) [address] [facility], [place], [address], 09/01/2024 08:23:47 08/31/19 25 09/01/2024 MICRO SCOPI C EXAMI NATIO N WBC NONE SEEN /hpf 0-5 Not Available [facility] ([facility]) [address] [facility], [place], [address], 09/01/2024 08:23:49 08/31/19 25 09/01/2024 MICRO SCOPI C EXAMI NATIO N RBC 0-2 /hpf 0-2 Not Available [facility] ([facility]) [address] [facility], [place], [address], 09/01/2024 08:23:49 08/31/19 25 09/01/2024 MICRO SCOPI C EXAMI NATIO N epithelial cells (non renal) 0-10 /hpf 0-10 Not Available [facility] ([facility]) [address] [place], [address], 09/01/2024 08:23:49 08/31/19 25 09/01/2024 MICRO SCOPI C EXAMI NATIO N casts NONE SEEN /lpf nonese en Not Available [facility] ([facility]) [address] [facility], [place], [address], 09/01/2024 08:23:49 08/31/19 25 09/01/2024 MICRO SCOPI C EXAMI NATIO N bacteria NONE SEEN nonese en/few Not Available [facility] ([facility]) [address] [facility], [place], [address], 09/01/2024 08:23:49 08/31/19 25 09/01/2024 HEMOG LOBIN A1C hemoglobin A1C 5.9 % 4.8-5. 6 above high normal Predi abete s: 5.7 - 6.4 Diabe fatimah: >6.4 Glyce rosario contr ol for adult s with diabe fatimah: <7.0 Not Available [facility] ([facility]) [address] [facility], [place], [address], 09/01/2024 08:23:49 08/31/1909/01/2024 URINA LYSIS , COMPL ETE specific gravity 1.028 1.005- 1.030 Not Available [facility] ([facility]) [address] [facility], [place], [address], 09/01/2024 08:23:51 08/31/19 25 09/01/2024 URINA LYSIS , COMPL ETE pH 6.0 5.0-7. 5 Not Available [facility] ([facility]) [address] [facility], [place], [address], 09/01/2024 08:23:51 08/31/1909/01/2024 URINA LYSIS , COMPL ETE urine-color YELLOW yellow Not Available [facility] ([facility]) [address] [facility], [place], [address], 09/01/2024 08:23:51 08/31/19 25 09/01/2024 URINA LYSIS , COMPL ETE appearance CLEAR clear Not Available [facility] ([facility]) [address] [facility], [place], [address], 09/01/2024 08:23:51 08/31/19 25 09/01/2024 URINA LYSIS , COMPL ETE WBC esterase NEGATI VE negati ve Not Available [facility] ([facility]) [address] [facility], [place], [address], 09/01/2024 08:23:51 08/31/19 25 09/01/2024 URINA LYSIS , COMPL ETE protein TRACE negati ve/tra ce Not Available [facility] ([facility]) [address] [place], [address], 09/01/2024 08:23:51 08/31/19 25 09/01/2024 URINA LYSIS , COMPL ETE glucose NEGATI VE negati ve Not Available [facility] ([facility]) [address] [place], [address], 09/01/2024 08:23:51 08/31/19 25 09/01/2024 URINA LYSIS , COMPL ETE ketones TRACE negati ve abnormal Not Available [facility] ([facility]) [address] [facility], [place], [address], 09/01/2024 08:23:51 08/31/19 25 09/01/2024 URINA LYSIS , COMPL ETE occult blood NEGATI VE negati ve Not Available [facility] ([facility]) [address] [place], [address], 09/01/2024 08:23:51 08/31/19 25 09/01/2024 URINA LYSIS , COMPL ETE bilirubin NEGATI VE negati ve Not Available [facility] ([facility]) [address] [place], [address], 09/01/2024 08:23:51 08/31/19 25 09/01/2024 URINA LYSIS , COMPL ETE urobilinogen ,semi-qn 1.0 mg/dL 0.2-1. 0 Not Available [facility] ([facility]) [address] [place], [address], 09/01/2024 08:23:51 08/31/19 25 09/01/2024 URINA LYSIS , COMPL ETE nitrite, urine NEGATI VE negati ve Not Available [facility] ([facility]) [address] [facility], [place], [address], 09/01/2024 08:23:51 08/31/19 25 09/01/2024 URINA LYSIS , COMPL ETE microscopic examination COMMEN T Micro scopi c follo ws if indic ated. Not Available [facility] ([facility]) [address] [facility], [place], [address], 09/01/2024 08:23:51 08/31/19 25 09/01/2024 URINA LYSIS , COMPL ETE microscopic examination SEE BELOW: Micro scopi c was indic ated and was perfo rmed. Not Available [facility] ([facility]) [address] [facility], [place], [address], 09/01/2024 08:23:51 08/31/1908/31/2024 CBC WITH DIFFE RENTI AL/PL ATELE T WBC 6.8 x10e3 /uL 3.4-10 .8 Not Available [facility] ([facility]) [address] [facility], [place], [address], 09/01/2024 08:23:52 08/31/1908/31/2024 CBC WITH DIFFE RENTI AL/PL ATELE T RBC 4.03 x10e6 /uL 3.77-5 .28 Not Available [facility] ([facility]) [address] [facility], [place], [address], 09/01/2024 08:23:52 08/31/19 25 08/31/2024 CBC WITH DIFFE RENTI AL/PL ATELE T hemoglobin 12.9 g/dL 11.1-1 5.9 Not Available [facility] ([facility]) [address] [place], [address], 09/01/2024 08:23:52 08/31/19 25 08/31/2024 CBC WITH DIFFE RENTI AL/PL ATELE T hematocrit 39.7 % 34.0-4 6.6 Not Available [facility] ([facility]) [address] [place], [address], 09/01/2024 08:23:52 08/31/1908/31/2024 CBC WITH DIFFE RENTI AL/PL ATELE T MCV 99 fL 79-97 above high normal Not Available [facility] ([facility]) [address] [place], [address], 09/01/2024 08:23:52 08/31/19 25 08/31/2024 CBC WITH DIFFE RENTI AL/PL ATELE T MCH 32.0 pg 26.6-3 3.0 Not Available [facility] ([facility]) [address] [place], [address], 09/01/2024 08:23:52 08/31/1908/31/2024 CBC WITH DIFFE RENTI AL/PL ATELE T MCHC 32.5 g/dL 31.5-3 5.7 Not Available [facility] ([facility]) [address] [place], [address], 09/01/2024 08:23:52 08/31/19 25 08/31/2024 CBC WITH DIFFE RENTI AL/PL ATELE T RDW 11.7 % 11.7-1 5.4 Not Available [facility] ([facility]) [address] [place], [address], 09/01/2024 08:23:52 08/31/19 25 08/31/2024 CBC WITH DIFFE RENTI AL/PL ATELE T platelets 228 x10e3 /uL 150-45 0 Not Available [facility] ([facility]) [address] [facility], [place], [address], 09/01/2024 08:23:52 08/31/19 25 08/31/2024 CBC WITH DIFFE RENTI AL/PL ATELE T neutrophils 40 % notest ab. Not Available [facility] ([facility]) [address] [facility], [place], [address], 09/01/2024 08:23:52 08/31/19 25 08/31/2024 CBC WITH DIFFE RENTI AL/PL ATELE T lymphs 52 % notest ab. Not Available [facility] ([facility]) [address] [facility], [place], [address], 09/01/2024 08:23:52 08/31/19 25 08/31/2024 CBC WITH DIFFE RENTI AL/PL ATELE T monocytes 7 % notest ab. Not Available [facility] ([facility]) [address] [facility], [place], [address], 09/01/2024 08:23:52 08/31/19 25 08/31/2024 CBC WITH DIFFE RENTI AL/PL ATELE T eos 1 % notest ab. Not Available [facility] ([facility]) [address] [facility], [place], [address], 09/01/2024 08:23:52 08/31/19 25 08/31/2024 CBC WITH DIFFE RENTI AL/PL ATELE T basos 0 % notest ab. Not Available [facility] ([facility]) [address] [facility], [place], [address], 09/01/2024 08:23:52 08/31/19 25 08/31/2024 CBC WITH DIFFE RENTI AL/PL ATELE T neutrophils (absolute) 2.7 x10e3 /uL 1.4-7. 0 Not Available [facility] ([facility]) [address] [facility], [place], [address], 09/01/2024 08:23:52 08/31/19 25 08/31/2024 CBC WITH DIFFE RENTI AL/PL ATELE T lymphs (absolute) 3.5 x10e3 /uL 0.7-3. 1 above high normal Not Available [facility] ([facility]) [address] [facility], [place], [address], 09/01/2024 08:23:52 08/31/19 25 08/31/2024 CBC WITH DIFFE RENTI AL/PL ATELE T monocytes(ab solute) 0.5 x10e3 /uL 0.1-0. 9 Not Available [facility] ([facility]) [address] [facility], [place], [address], 09/01/2024 08:23:52 08/31/19 25 08/31/2024 CBC WITH DIFFE RENTI AL/PL ATELE T eos (absolute) 0.1 x10e3 /uL 0.0-0. 4 Not Available [facility] ([facility]) [address] [facility], [place], [address], 09/01/2024 08:23:52 08/31/19 25 08/31/2024 CBC WITH DIFFE RENTI AL/PL ATELE T baso (absolute) 0.0 x10e3 /uL 0.0-0. 2 Not Available [facility] ([facility]) [address] [place], [address], 09/01/2024 08:23:52 08/31/1908/31/2024 CBC WITH DIFFE RENTI AL/PL ATELE T immature granulocytes 0 % notest ab. Not Available [facility] ([facility]) [address] [facility], [place], [address], 09/01/2024 08:23:52 08/31/19 25 08/31/2024 CBC WITH DIFFE RENTI AL/PL ATELE T immature grans (abs) 0.0 x10e3 /uL 0.0-0. 1 Not Available [facility] ([facility]) [address] [facility], [place], [address], 09/01/2024 08:23:52 08/31/19 25 09/01/2024 VITAM IN [...] Medic ine). 2009. David ry refer ence intak es for calci um and D. Isabela guzman [place]: The Natio nal [facility] Press . 2. Rochelle emerson [place], Unique garza [place], Kate off-F errar i MEDINA, et al. Evalu ation , treat ment, and preve ntion of vitam in D defic iency : an Endoc rine Socie ty clini maria guadalupe pract ice guide line. JCEM. 2010; 96(7) :1911 -30. Not Available [facility] ([facility]) [address] [facility], [place], [address], 09/01/2024 08:23:53 11/22/19 25 11/22/2024 URINA LYSIS , ROUTI NE specific gravity 1.013 1.005- 1.030 Not Available [facility] ([facility]) [address] [facility], [place], [address], 11/22/2024 06:37:17 11/22/19 25 11/22/2024 URINA LYSIS , ROUTI NE pH 6.5 5.0-7. 5 Not Available [facility] ([facility]) [address] [facility], [place], [address], 11/22/2024 06:37:17 11/22/19 25 11/22/2024 URINA LYSIS , ROUTI NE urine-color YELLOW yellow Not Available [facility] [address] [facility], [place], [address], 11/22/2024 06:37:17 11/22/19 25 11/22/2024 URINA LYSIS , ROUTI NE appearance CLEAR clear Not Available [facility] ([facility]) [address] [place], [address], 11/22/2024 06:37:17 11/22/19 25 11/22/2024 URINA LYSIS , ROUTI NE WBC esterase NEGATI VE negati ve Not Available [facility] ([facility]) [address] [place], [address], 11/22/2024 06:37:17 11/22/19 25 11/22/2024 URINA LYSIS , ROUTI NE protein NEGATI VE negati ve/tra ce Not Available [facility] ([facility]) [address] [facility], [place], [address], 11/22/2024 06:37:17 11/22/19 25 11/22/2024 URINA LYSIS , ROUTI NE glucose NEGATI VE negati ve Not Available [facility] ([facility]) [address] [place], [address], 11/22/2024 06:37:17 11/22/19 25 11/22/2024 URINA LYSIS , ROUTI NE ketones NEGATI VE negati ve Not Available [facility] ([facility]) [address] [place], [address], 11/22/2024 06:37:17 11/22/19 25 11/22/2024 URINA LYSIS , ROUTI NE occult blood NEGATI VE negati ve Not Available [facility] ([facility]) [address] [facility], [place], [address], 11/22/2024 06:37:17 11/22/19 25 11/22/2024 URINA LYSIS , ROUTI NE bilirubin NEGATI VE negati ve Not Available [facility] ([facility]) [address] [facility], [place], [address], 11/22/2024 06:37:17 11/22/19 25 11/22/2024 URINA LYSIS , ROUTI NE urobilinogen ,semi-qn 0.2 mg/dL 0.2-1. 0 Not Available [facility] ([facility]) [address] [facility], [place], [address], 11/22/2024 06:37:17 11/22/19 25 11/22/2024 URINA LYSIS , ROUTI NE nitrite, urine NEGATI VE negati ve Not Available [facility] ([facility]) [address] [facility], [place], [address], 11/22/2024 06:37:17 11/22/1911/22/2024 URINA LYSIS , ROUTI NE microscopic examination COMMEN T Micro scopi c not indic ated and not perfo rmed. Not Available [facility] ([facility]) [address] [facility], [place], [address], 11/22/2024 06:37:17 09/14/19 25 09/14/2024 MAMMO , scree lupe, bilat eral No observ ation record ed. [place] [address], [place], [address], 11/21/2024 10:15:33 09/14/19 25 09/14/2024 MAMMO , scree lupe, bilat eral No observ ation record ed. [facility] [address], [place], [address], 11/21/2024 10:15:33 09/28/19 25 09/14/2024 MAMMO , scree lupe, bilat eral No observ ation record ed. [facility] [address] [facility] [address], [place], [address], 11/21/2024 10:15:33 09/28/19 25 09/14/2024 MAMMO , scree lupe, bilat eral No observ ation record ed. [facility] [address] [facility] [address], [place], [address], 11/21/2024 10:15:33 11/08/19 25 09/14/2024 MAMMO , scree lupe, bilat eral No observ ation record ed. [facility] (Mammography) [address], [place], [address], 11/21/2024 10:15:33 11/18/19 25 11/17/2024 angel CRANDALL, unila teral No observ ation record ed. [facility] [address], [place], [address], 11/21/2024 10:15:33 11/19/19 25 11/17/2024 angel CRANDALL, unila teral No observ ation record ed. [facility] (Rad) [address] [facility], [place], [address], 11/21/2024 10:15:33 Result Notes None recorded. 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 87800453 Completed 201705/24/2024 Allegra Chapin MD Attn: Accounting ,[address] [place], [address] , [place] - [facility] 4 15:08:19 Hyperthyr oidism 77590052 Active 2017 Allegra Chapin MD Attn: Accounting ,[address] [facility], [place], [address] , [place] - [facility] 4 15:08:50 Genital herpes simplex 82647606 Active 2017 Not Available [facility] 3 00:16:51 Osteoarth ritis of joint of hand [id number] Completed 201905/24/2024 Allegra Chapin MD Attn: Accounting ,[address] [facility], [place], [address] , [place] [facility] 4 15:08:24 Serum creatinin e above reference range 747854501 Active 2019 Ye Garcia MD Attn: Accounting ,[address] [facility], [place], [address] , [place] [facility] 5 10:16:08 Group B Streptoco ccus carrier 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 03 Completed 202005/24/2024 Allegra Chapin MD Attn: Accounting ,[address] [facility], [place], [address] , [place] [facility] 4 15:08:34 History of hyperthyr oidism 336201749 Active 2020 Allegra Chapin MD Attn: Accounting ,[address] [facility], [place], [address] , [place] [facility] 4 15:08:43 SARS-CoV- 2 mRNA vaccine declined 0632370132 Active 2021 Not Available [facility] 3 00:16:50 Impaired fasting glycemia 417894024 Active 2024 Ye Garcia MD Attn: Accounting ,[address] [place], [address] , [place] [facility] 5 12:26:44 Excessive cerumen in ear canal 752287667 Completed 02/16/2018 Salazar yip, [facility] 8 10:44:07 Palpitati ons 46182599 Completed 02/16/2018 Salazar yip, [place] [facility] 8 10:44:02 Problem Notes None recorded. Procedures Surgical History Date Name Laterality Status Provider Name and Address Organization Details Recorded Time 3 Date of Last Mammogram completed Hillary Bazan [place] [facility] 06/16/2023 09:14:34 1 excision of bunion completed Barby Bradely [place] [facility] 11/28/2021 09:59:40 1 Date of Last Pap Smear completed Hillary Bazan [place] [facility] 04/18/2022 10:50:06 1 Depo Injection completed Lashaun Hay [place] [facility] 08/24/2020 16:33:19 0 Depo Injection completed Lashaun Hay [place] [facility] 04/27/2020 15:10:14 0 Depo Injection completed Lashaun Hay [place] [facility] 10/07/2019 16:57:24 9 Depo Injection completed Lashaun Hay [place] [facility] 04/15/2019 11:41:44 9 Depo Injection completed Lashaun Hay [place] [facility] 08/06/2018 16:08:42 8 Depo Injection completed Lashaun Hay [place] [facility] 05/14/2018 15:51:28 7 Depo Injection completed Shila Davey [place] [facility] 03/20/2017 15:52:17 delivery completed Ye Garcia MD Attn: Accounting,[address] [facility], [place], [address], [facility] 09/13/2018 17:01:07 Imaging Results Imaging Date Name Status LastModified by [facility] Details LastModified Time 09/14/2024 MAMMO, screening, bilateral completed [facility] [address], [place], [address], 11/21/2024 10:15:33 09/14/2024 MAMMO, screening, bilateral completed [facility] [address], [place], [address], 11/21/2024 10:15:33 09/14/2024 MAMMO, screening, bilateral completed [facility] [address], [place], [address], 11/21/2024 10:15:33 09/14/2024 MAMMO, screening, bilateral completed [facility] [address], [place], [address], 11/21/2024 10:15:33 09/14/2024 MAMMO, screening, bilateral completed [facility] (Mammography) [address], [place], [address], 11/21/2024 10:15:33 11/17/2024 US, breast, unilateral completed [facility] [address], [address], 11/21/2024 10:15:33 11/17/2024 US, breast, unilateral completed [facility] (Rad) [address] [place], [address], 11/21/2024 10:15:33 Procedure Notes None recorded. Medical Equipment None Reported. Allergies Allergen ID Allergen Name Allergen Category Reaction Reaction Severity Criticality Documentation Date Start Date Code Code System Note Provider Name and Address Organization Details Recorded Time 588060 No known allergy (situatio n) Not available Not available Not available Not available 06/02/2023 96288 [id number] SNOMED Ye Garcia MD Attn: Holley ross,[address] [facility], [place], [address], [facility] 09:47:26 No known drug allergies Medications Name Sig [...] MOUTH 4 TIMES DAILY UNTIL ALL TAKEN 11/21 completed Not Available Not Available Not Available [...] completed Not Available Not Available Not Available ergocalci ferol (vitamin D2) 1,250 mcg (50,000 unit) capsule TAKE ONE CAPSULE BY MOUTH EVERY WEEK FOR VITAMIN DEFICIAN CY active Not Available Not Available No t Available dexametha sone sodium phosphate 4 mg/mL injection solution 4 mg by injectio n route. 05/31 completed Not Available Not Available Not Available Percocet 5 mg-325 mg tablet Take 1 tablet by oral route. 11/28 completed Not Available Not Available Not Available medroxypr ogesteron e 150 mg/mL intramusc ular suspensio n Inject 1 ml (150 mg) intramus cularly every 3 months active Not Available Not Available No t Available naproxen 500 mg tablet Take 1 tablet [...] DateTime 05/19/2024 157.48 cm Hillary Bazan MA [facility] 2023 10:03:13 Date Recorded Body mass index (BMI) Body weight Provider Name and Address Organization Details Last Updated DateTime 05/19/2024 26.3 kg/m2 50709.3 g Betty Montez LPN [facility] 05/19/2024 10:29:15 Date Recorded Body height Provider Name an d Address Organization Details Last Updated DateTime 08/11/2024 157.48 cm Hillary Bazan MA [facility] 2024 10:05:46 Date Recorded Body height Body mass index (BMI) Body weight Provider Name and Address Organization Details Last Updated DateTime 10/26/2024 157.48 cm 27.1 kg/m2 62604.67 g Hillary Bazan MA [facility] 10/26/2024 10:20:57 Date Recorded Body height Body mass index (BMI) Body weight Heart rate Oxygen saturation Oxygen saturation in Arterial blood by Pulse oximetry Body temperature Systolic blood pressure Diastolic blood pressure Provider Name and Address Organization Details Last Updated DateTime 5 157.48 cm 27.1 kg/m2 54897.0 3 g 82 /min 98 % 98 % 98.4 [degF] 116 mm[Hg] 74 mm[Hg] Rosanna Cooper MA [facility] 5 09:58:36 Social History Question Answer Notes LastModified by Organizat ion Details LastModified Time Tobacco Smoking Status Never Smoker RASHEED Lny[place], [place] [facility] 08/10/2014 11:11:50 Do You Have An Advance Directive? No Information not available 12/02/2016 Are You Blind Or Do You Have Difficulty Seeing? No Information not available 11/22/2020 Is Blood Transfusion Acceptable In An Emergency? Yes Information not available 12/02/2016 What Is Your Level Of Caffeine Consumption? Occasional Information not available 11/22/2020 How Much Tobacco Do You Chew? None Information not available 12/02/2016 In The 14 Days Before Symptom Onset, Have You Had Close Contact With A Laboratory-confir med COVID-19 While That Case Was Ill? No Information not available 11/22/2020 Have You Been To An Area Known To Be High Risk For COVID-19? Yes Information not available 11/22/2020 Are You Deaf Or Do You Have Serious Difficulty Hearing? No Information not available 11/22/2020 What Type Of Diet Are You Following? REGULAR [email or web address] Information not available 06/08/2018 Which Illicit Or Recreational Drugs Have You Used? None Information not available 09/13/2018 Education 11 GED Information no t available 06/08/2018 Are There Any Guns Present In Your Home? No Information not available 11/22/2020 Live Alone Or With Others? With Others Information not available 06/08/2018 Marital Status Single Informatio n not available 08/10/2014 What Was The Date Of Your Most Recent Tobacco Screening? 11/21/2024 Information not available 11/21/2024 How Many Children Do You Have? 2 Information not available 08/10/2014 Performs Monthly Self-breast Exam? Yes Information no t available 12/02/2016 What Is Your Relationship Status? Single [email or web address] Information not available 06/08/2018 Do You Use Your Seat Belt Or Car Seat Routinely? Yes Information not available 11/22/2020 Seat Belts Used Routinely Yes Information not available 12/02/2016 Are You Sexually Active? No Information not available 08/10/2014 Do You Have Smoke And Carbon Monoxide Detectors In Your Home? Yes Information not available 11/22/2020 Are You Passively Exposed To Smoke? No Information no t available 11/01/2021 How Much Tobacco Do You Smoke? No Information not available 01/19/2017 Do You Use Sunscreen Routinely? No Information not available 12/02/2016 Has Tobacco Cessation Counseling Been Provided? Yes Information not available 12/31/2022 On What Date Was Tobacco Cessation Counseling Provided? 02/22/2024 Information not available 02/22/2024 How Many Years Have You Smoked Tobacco? 0 Information not available 01/19/2017 Sex: Unknown Functional Status Question Answer Note LastModified by Organizat ion Details LastModified Time Do you use any illicit or recreational drugs? No Information not available 11/22/2020 Do you or have you ever used any other forms of tobacco or nicotine? No [email or web address] Information not available 05/06/2021 What is your level of alcohol consumption? None Information not available 08/10/2014 Do you or have you ever used smokeless tobacco? Never used smokeless tobacco Information not available 08/30/2019 Are you currently employed? Yes [email or web address] Information not available 06/08/2018 Are you able to care for yourself? 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 Never used electronic cigarettes Information not available 08/30/2019 What is your exercise level? Occasional [email or web address] Information not available 06/08/2018 Mental Status None recorded. Family History Relationship Description Onset Age of this Age Resolved Age Notes LastModified by Organization Details LastModified Time Maternal Grandmother Diabetes mellitus [email or web address] Not available 2015 12:13:46 Maternal Aunt Carcinoma in situ of colon [email or web address] Not available 2015 12:13:46 Medical History Condition [...] Age at Menarche 10 Current Control Method Depo-Nitrocellulose Operator a Age at First Child 17 Frequency [...] 50 mcg/0.25mL dose 1 completed Not Available [facility] 05/28/2023 00:16:51 COVID-19, mRNA, LNP-S, PF, 100 mcg/0.5mL dose or 50 mcg/0.25mL dose 1 completed Not Available [email or web address] 05/28/2023 00:16:51 MMR 6 completed Not Available [facility] 05/28/2023 00:16:51 DTP 7 completed Not Available [facility] 05/28/2023 00:16:51 DTP 7 completed Not Available [facility] 05/28/2023 00:16:51 DTP 6 completed Not Available [facility] 05/28/2023 00:16:51 DTP 8 completed Not Available [facility] 05/28/2023 00:16:51 OPV 7 completed Not Available [facility] 05/28/2023 00:16:51 OPV 7 completed Not Available [facility] 05/28/2023 00:16:51 OPV 6 completed Not Available [facility] 05/28/2023 00:16:51 OPV 8 completed Not Available [facility] 05/28/2023 00:16:51 Influenza, split virus, quadrivalent, preservative 7 completed Not Available [facility] 08/20/2019 02:34:50 HPV9 8 completed Not Available [facility] 08/20/2019 02:43:42 Influenza, split virus, quadrivalent, preservative 8 completed Not Available [facility] 08/20/2019 02:50:29 Influenza, split virus, quadrivalent, preservative 0 completed Rosanna Cooper [place] null, [place] [facility] 08/30/2019 12:36:49 Influenza, split virus, quadrivalent, preservative 0 completed Rosanna Cooper [place] null, [place] [facility] 04/23/2020 14:43:05 Influenza, split virus, quadrivalent, preservative 1 completed Rosanna [place], [place] [facility] 05/15/2021 15:48:33 Influenza, split virus, quadrivalent, preservative 6 completed Not Available [facility] 05/28/2023 00:16:51 Influenza, split virus, quadrivalent, preservative 3 completed Ye Garcia MD Attn: Accounting,[address] [place], [address], [place] [facility] 04/30/2023 12:28:01 Tdap 6 completed Not Available [facility] 08/20/2019 02:42:00 Influenza, split virus, trivalent, preservative 6 completed Not Available [facility] 08/20/2019 02:51:04 Past Encounters Encounter ID Performer Location Encounter Start Date Encounter Closed Date Diagnosis/Indication Diagnosis SNOMED-CT Code Diagnosis ICD10 Code Diagnosis Note [id number] [facility] [address] [place] [address] [id number] 08/10/2014 10:41:41 08/10/2014 11:43:45 Uses depot contraception 548889622 No problems presently. [id number] [facility] [address] [place] [address] [id number] 0 11/06/2014 15:21:45 11/06/2014 15:44:31 Uses depot contraception 344364728 No problems presently. [id number] [facility] [address] [place] [address] [id number] 02/05/2015 15:03:11 02/05/2015 15:34:16 Uses depot contraception 154686413 No problems presently. Plan annual exam at time of next scheduled depot injection. [id number] [facility] [address] [place] [address] [id number] 05/08/2015 10:16:57 05/08/2015 11:49:12 Gynecologic examination 56443263 Z01.419 Uses depot contraception 548765543 Z30.42 No problems presently. Plan annual exam at time of next scheduled depot injection. [id number] [facility] [address] [place] [address] [id number] 0 05/09/2015 14:01:09 05/09/2015 14:12:21 Uses depot contraception 435697097 Z30.42 No problems presently. Plan annual exam at time of next scheduled depot injection. [id number] [facility] [address] [place] [address] [id number] 0 08/02/2015 14:24:46 08/02/2015 15:11:26 Uses depot contraception 536989227 Z30.42 No problems presently. Plan annual exam at time of next scheduled depot injection. [id number] MD Candida Hoff (Adult Med) [address] [place] [address] [id number] 09/14/2015 10:14:20 09/14/2015 17:56:53 General examination of patient 557379873 Z00.00 35 y/o BF who I last saw 05/26/2013 Active or passive immunization 183985062 Z23 Excessive cerumen in ear canal 794500373 H61.23 Palpitations 81788154 R0 0.2 Prior history of palpitatio ns, she was evaluated by cardiology . She denies any further symptoms. [id number] MD Candida Lara ([employer]) [address] [place] [address] [id number] 0 11/02/2015 14:28:31 11/05/2015 12:40:52 Uses depot contraception 137813612 Z30.42 No problems presently. Plan annual exam at time of next scheduled depot injection. [id number] MD Candida Lara ([employer]) [address] [place] [address] [id number] 0 05/21/2016 10:07:52 05/21/2016 11:44:10 Uses depot contraception 041499861 Z30.42 No problems presently. Gynecologi c examination 41934313 Z01.814 [id number] MD Candida Gupta ([employer]) [address] [place] [address] [id number] 08/20/2016 14:28:15 08/20/2016 15:54:08 Contraception care 156092662 Z30.40 [id number] MD Candida Maldonado ([employer]) [address] [place] [address] [id number] 0 12/02/2016 15:13:07 12/03/2016 13:30:02 Uses depot contraception 070482449 Z30.42 counseled about risks and benefits of prolonged use of depo provera and effect on bone mineral density. Advised to take calcium and vitamin D. Surveillan ce of contraception 999206516 Z30.40 counseled about risks and benefits of [...] sex counseling and advised to use condoms. [id number] MD Candida Hoff (Adult Med) [address] [place] [address] [id number] 0 01/19/2017 11:04:28 01/20/2017 10:04:53 Adult health examination 782195335 Z00.01 Palpitations 26414774 R0 0.2 Swelling of hand 8009639 03 R22.31 She is somewhat more muscular on the R>L Impaired f asting glycemia 150604411 R73.01 Goiter 6587932 E04.9 Normal grief reaction 27 9644503 F43.20 Acute otitis media 77544 03 H65.01 Acquired d eformity of finger 33334762 M20.009 She recalls getting her right 5th digit caught in the car door on several occasions as a child. [id number] MD Candida Gupta ([employer]) [address] [place] [address] [id number] 0 03/20/2017 15:16:12 03/20/2017 15:57:28 Uses depot contraception 661481168 Z30.42 [id number] MD Candida Hoff (Adult Med) [address] [place] [address] [id number] 03/26/2017 14:25:52 03/26/2017 16:42:57 Low back pain 784624223 M54.5 Pain in lower limb 70448 006 M79.604 M79.605 MSK or a radiculopa thy from her back Venous varices 125568190 I83.91 Kidney disease 99014096 N08 Impaired f asting glycemia 212593092 R73.01 [id number] MD Candida Maldonado ([employer]) [address] [place] [address] [id number] 0 07/07/2017 12:18:29 07/07/2017 17:34:57 Uses depot contraception 682644032 Z30.42 counseled about risks and benefits of [...] sex counseling and advised to use condoms. [id number] MD Candida Gupta ([employer]) [address] [place] [address] [id number] 07/10/2017 15:10:19 07/13/2017 13:37:25 Contraception care management 430471184 Z30.9 [id number] MD Candida Hoff (Adult Med) [address] [place] [address] [id number] 0 07/16/2017 14:22:56 07/16/2017 14:55:55 Administration of influenza vaccine 44994380 Z23 Palpitations 84189577 R0 0.2 Improved, 2 episodes since the recent loss of her grandmothe r Generalize d anxiety disorder 11366906 F41.1 Counseling ExerciseSt art Citalopram , side effects were discussed in detail. Normal grief reaction 27 6976142 F43.20 Goiter 1995454 E04.9 [id number] MD Candida Gupta ([employer]) [address] [place] [address] [id number] 10/20/2017 14:21:17 10/20/2017 15:23:05 Family planning surveillance 208178041 Z30.09 [id number] MD Candida Gupta ([employer]) [address] [place] [address] [id number] 02/16/2018 09:40:48 02/16/2018 11:03:16 Gynecologic examination 88744016 Z01.419 Exposure t o sexually transmissible disorder 605269517 Z20.2 Uses depot contraception 277960231 Z30.42 High risk sexual behavior 432906816 Z72.51 Screening mammography 24 933479 Z12.31 Hyperthyroidism 20353470 E05.90 Candidiasis of vagina 72 450380 B37.3 [id number] MD Candida Gupta ([employer]) [address] [place] [address] [id number] 0 05/14/2018 14:18:17 05/17/2018 11:32:19 Family planning surveillance 800973855 Z30.09 [id number] MD Candida Gupta ([employer]) [address] [place] [address] [id number] 0 06/08/2018 15:45:04 06/08/2018 17:27:34 Family planning surveillance 896416323 Z30.09 Genital he rpes simplex 41386974 A60.9 Exposure t o sexually transmissible disorder 712109739 Z20.2 Hyperthyroidism 86838936 E05.90 Goiter 6845431 E04.9 Active or passive immunization 118230414 Z23 0, 2, and 6 month series. [id number] MD Candida Gupta ([employer]) [address] [place] [address] [id number] 0 08/06/2018 14:48:22 08/09/2018 12:08:47 Family planning surveillance 506061752 Z30.09 [id number] MD Candida Hoff (Adult Med) [address] [place] [address] [id number] 0 09/13/2018 16:24:54 09/14/2018 09:02:36 General examination of patient 131247048 Z00.01 Screening for malignant neoplasm of breast 425377397 Z12.31 Goiter 5403924 E04.9 [id number] MD Candida Gupta ([employer]) [address] [place] [address] [id number] 0 10/29/2018 09:55:45 10/29/2018 12:54:27 Depot contraceptive-no problem 014756661 Z30.42 [id number] MD Candida Gupta ([employer]) [address] [place] [address] [id number] 0 01/21/2019 09:57:22 01/21/2019 12:08:32 Depot contraceptive-no problem 221230558 Z30.42 [id number] MD Candida Gupta ([employer]) [address] [place] [address] [id number] 0 04/15/2019 11:13:03 04/18/2019 12:35:27 Family planning surveillance 384031282 Z30.09 [id number] [facility] [address] [place] [address] [id number] 0 07/08/2019 10:16:41 07/08/2019 10:42:46 Depot contraceptive-no problem 372178126 Z30.42 [id number] MD Candida Hoff (Adult Med) [address] [place] [address] [id number] 0 08/30/2019 10:50:55 08/31/2019 14:21:58 General examination of patient 431972493 Z00.01 Goiter 3133360 E04.9 Screening for malignant neoplasm of breast 805246040 Z12.31 Administra tion of influenza vaccine 81843022 Z23 Serum crea tinine above reference range 133683649 R79.89 Recheck [id number] [facility] [address] [place] [address] [id number] 0 10/07/2019 16:10:32 10/07/2019 16:36:51 Family planning surveillance 923208043 Z30.09 [id number] MD Candida Gupta ([employer]) [address] [place] [address] [id number] 0 01/06/2020 15:39:32 01/09/2020 07:01:54 Family planning surveillance 537898037 Z30.09 [id number] MD Candida Hoff (Adult Med) [address] [place] [address] [id number] 0 03/06/2020 15:54:30 03/07/2020 10:29:44 Serum creatinine above reference range 352895986 R79.89 Recheck Osteoarthr itis of joint of hand 64608274 M19.049 Goiter 0655033 E04.9 Pain of ri ght shoulder joint 9733384439 0531719 M25.607 [id number] MD Candida Hoff (Adult Med) [address] [place] [address] 05735-011 0 03/15/2020 15:42:51 03/16/2020 09:04:00 Low back strain 830028446 S39.012A Serum crea tinine above reference range 628110976 R79.89 [id number] MD Candida Hoff (Adult Med) [address] [place] [address] [id number] 0 04/23/2020 14:16:59 04/24/2020 11:12:01 Administration of influenza vaccine 36692957 Z23 Pain of ri ght shoulder joint 2737749889 7458758 M25.511 Improvemen t noted [id number] MD Candida Gupta ([employer]) [address] [place] [address] [id number] 0 04/26/2020 14:49:17 04/26/2020 20:29:15 Family planning surveillance 388888751 Z30.09 [id number] MD Candida Gupta ([employer]) [address] [place] [address] [id number] 0 04/27/2020 14:49:33 04/30/2020 09:47:45 Family planning surveillance 499735979 Z30.09 [id number] MD Candida Gupta ([employer]) [address] [place] [address] [id number] 0 08/24/2020 16:03:37 08/25/2020 21:33:46 Family planning surveillance 507958939 Z30.09 [id number] MD Candida Gupta ([employer]) [address] [place] [address] [id number] 0 11/09/2020 15:44:01 12/03/2020 08:44:42 Uses depot contraception 663513019 Z30.42 [id number] MD Candida Hoff (Adult Med) [address] [place] [address] [id number] 0 11/22/2020 14:47:21 11/23/2020 13:00:12 Foot callus 665160331 L84 Pain in both feet 621120 8943 0304744 M79.671 M79.672 Verruca plantaris 813187 08 B07.0 Hallux dilan horacio AND bunion 109739084 M20.11 Anxiety 02119358 F41.9 [id number] MD Candida Gupta ([employer]) [address] [place] [address] [id number] 0 02/01/2021 09:40:52 02/01/2021 15:57:54 Family planning surveillance 817705320 Z30.09 Contraception care 28490 5005 Z30.40 [id number] MD Candida Gupta ([employer]) [address] [place] [address] 83900-577 0 05/06/2021 11:23:15 05/07/2021 10:52:55 Family planning surveillance 076843624 Z30.09 Gynecologi c examination 89455465 Z01.419 Z11.51 Screening mammography 24 461179 Z12.31 Bacterial vaginosis 4197 31537 N76.0 Exposure t o sexually transmissible disorder 164148076 Z20.2 [id number] MD Candida Hoff (Adult Med) [address] [place] [address] 89002-902 0 05/15/2021 14:47:00 05/16/2021 12:45:38 Needs influenza immunization 652164700 Z28.3 History of hyperthyroidism 813007476 Z86.39 Pre-surger y evaluation 488572450 Z01.818 Low risk unless her tests come back abnormal.H er surgeon has requested an EKG General ex amination of patient 145894231 Z00.01 [id number] REESE DODSON CK, DO [facility] ([employer]) [address] [place] [address] [id number] 0 08/09/2021 10:49:14 08/10/2021 14:22:32 Contraception care 849395128 Z30.40 [id number] SAMUEL POLLOCK ([employer]) [address] [place] [address] [id number] 0 11/01/2021 10:44:11 11/04/2021 13:22:41 Depot contraceptive-no problem 494084108 Z30.42 [id number] MD Candida Hoff (Adult Med) [address] [place] [address] 28278-529 0 11/28/2021 09:37:48 11/29/2021 07:33:11 Goiter 3252446 E04.9 Intolerant of cold 30843 000 R68.89 Blood in urine 84049664 R31.9 Serum crea tinine above reference range 398695428 R79.89 Screening for malignant neoplasm of breast 504733537 Z12.31 SARS-CoV-2 mRNA vaccine declined [id number] Z28.21 [id number] SAMUEL POLLOCK (CROWD CONTROLLER) [address] [place] [address] [phone] 0 01/31/2022 09:47:53 02/04/2022 14:16:58 Contraception care 880238901 Z30.40 [id number] SAMUEL POLLOCK (CROWD CONTROLLER) [address] [place] [address] [phone] 0 04/18/2022 10:40:23 05/01/2022 10:15:40 Screening for malignant neoplasm of breast 153534697 Z12.31 Last mammogram 05/2021, BIRADS 1. Annual screening order provided. Contracept ion care management 085448520 Z30.9 custodial use of Depo. Long discussion on risks of decreased BMD with Depo use. Discussed different control options with patient including R/B/A/I. Pt will proceed with injection today, but is aware that she will need to get bone density screening before continuing with Depo. If abnormal, will discontinu e and switch to alternativ e. Pt agreeable. Screening for osteoporosis 574807670 Z13.820 Pt on Depo for 17+ yrs, warrants screening given risk of decreased BMD. [id number] SAMUEL POLLOCK (CROWD CONTROLLER) [address] [place] [address] 94962-905 0 07/23/2022 16:02:49 07/31/2022 15:36:48 Contraception care 750814394 Z30.40 [id number] SAMUEL POLLOCK (CROWD CONTROLLER) [address] [place] [address] [phone] 0 10/10/2022 09:35:58 10/28/2022 09:10:41 Depot contraceptive-no problem 922057713 Z30.42 Other options of contracept nitin discussed, pt happy with Depo and not interested in switching. Advised Depo contracept ion can increase risk of osteoporos is thus take Ca w/ Vit D supplement ation and consider alternativ e contracept darrell. BMD normal Apr 2022 (T score 0.5). Will continue depo contracept ion. RTC every 3 months for injection. [id number] SAMUEL POLLOCK (CROWD CONTROLLER) [address] [place] [address] [phone] 0 12/31/2022 08:39:34 01/02/2023 11:18:34 Depot contraceptive-no problem 336777718 Z30.42 Other options of contracept nitin discussed, pt happy with Depo and not interested in switching. Advised Depo contracept ion can increase risk of osteoporos is thus take Ca w/ Vit D supplement ation and consider alternativ e contracept darrell. BMD normal Apr 2022 (T score 0.5). RTC every 3 months for injection. [id number] MD Candida Hoff (Adult Med) [address] [place] [address] 53130-194 0 04/30/2023 10:01:59 05/01/2023 14:57:51 Goiter 8194793 E04.9 Serum crea tinine above reference range 156422423 R79.89 Ganglion c yst of right wrist 6618122564 84968 M67.431 Administra tion of influenza vaccine 33156132 Z23 Screening for malignant neoplasm of breast 881276831 Z12.31 Intolerant of cold 54320 000 R68.89 Bilateral instability of joints of knees 7582502813 4418845 M25.361 M25.362 General ex amination of patient 334583751 Z00.01 Umbilical hernia 6761612 07 K42.9 [id number] SAMUEL POLLOCK (CROWD CONTROLLER) [address] [place] [address] [phone] 0 03/26/2023 11:12:31 04/01/2023 09:51:57 Depot contraceptive-no problem 444080060 Z30.8 Other options of contracept nitin discussed, pt happy with Depo and not interested in switching. Advised Depo contracept ion can increase risk of osteoporos is thus take Ca w/ Vit D supplement ation and consider alternativ e contracept darrell. BMD normal Apr 2022 (T score 0.5). RTC every 3 months for injection. [id number] MD Candida Hoff (Adult Med) [address] [place] [address] [phone] 0 06/02/2023 09:18:29 06/03/2023 10:13:50 Mammography abnormal 448672949 R92.8 Discussed in detail Note from 05/26/2023 [...] d Body mass index 25-29 - overweight 976517759 Z68.25 Overweight 293228174 E66 .3 Abnormal urinalysis 1672 91948 R82.90 Impaired f asting glycemia 706776021 R73.01 [id number] SAMUEL POLLOCK HC (CROWD CONTROLLER) [address] [place] [address] 10681-544 0 06/16/2023 09:01:56 06/18/2023 09:42:42 Depot contraceptive-no problem 086693376 Z30.8 [id number] MD Candida ROLAND (CROWD CONTROLLER) [address] [place] [address] [phone] 0 09/01/2023 10:32:48 09/04/2023 12:24:34 Contraception care management 442032346 Z30.9 Depot contraceptive-no problem 448937603 Z30.42 [id number] MD Candida ROLAND (CROWD CONTROLLER) [address] [place] [address] [phone] 0 11/23/2023 10:33:46 12/02/2023 16:14:25 Abnormal vaginal bleeding 706009936 N93.9 Given this has only happened one time, will monitor for now.Patien t will get depot today and if bleeding continues to be irregular over the next 3 months, will do work up for AUB including USIf bleeding becomes even worse, she should come for a visit sooner than 3 monthsRetu rn precaution s discussed with patient Depot contraceptive-no problem 621781913 Z30.013 Breast cx risk low, no hx of migraine w/ aura and no hx of DVT or clotting disordersC ontinue Vit D and calcium supplement sDiscussed risks of mcfp Depot use and patient expressed understand ing and is willing to take the riskWill continue administra tion for nowCan consider early DEXA scan [id number] MD Candida Hoff (Adult Med) [address] [place] [address] [phone] 0 12/01/2023 09:37:30 12/02/2023 15:01:32 Mammography abnormal 795466642 R92.8 Follow up US OV 06/02/2023 Discussed in detail Note from 05/26/2023 US 05/26/2023 ; Right Complicate d cyst, Left, Complicate d cyst or mass (Benign?)6 month follow up recommende dI will have her seen by the breast surgeon.Di scussed with Ms Shah on 05/26/2023 at 11:38AM Note from 05/15/2023 MMG 05/15/2023 , Extremely dense breasts. NL but an US was recommende d Impaired f asting glycemia 509188537 R73.01 Discussed [id number] MD Candida Zarate (CROWD CONTROLLER) [address] [place] [address] [phone] 0 02/22/2024 09:46:38 03/07/2024 14:46:30 Surveillance of depot contraception done 6352442351 9104 Z30.42 [id number] MD Candida Zarate (CROWD CONTROLLER) [address] [place] [address] [phone] 0 05/19/2024 09:35:48 06/02/2024 16:32:28 Contraception care management 974567068 Z30.9 [id number] MD Candida ROLAND (CROWD CONTROLLER) [address] [place] [address] 02376-043 0 08/11/2024 09:44:39 08/31/2024 15:20:09 Surveillance of depot contraception done 8584208435 9104 Z30.42 [id number] MD Candida Hoff (Adult Med) [address] [place] [address] 88514-955 0 08/12/2024 10:17:15 09/10/2024 09:36:22 Mammography abnormal 348873820 R92.8 MMGUS 12/08/2023 -ve OV 11/23/2023F ollow [...] was recommende d Impaired f asting glycemia 839225896 R73.01 HBA1c 5.9% on 12/01/2023 Screening mammography of bilateral breasts 3165686701 35724 Z12.31 Adult heal th examination 306141936 Z00.01 [id number] MD Candida ROLAND (CROWD CONTROLLER) [address] [place] [address] [phone] 0 10/26/2024 09:48:01 11/01/2024 12:43:43 Surveillance of depot contraception done 5545227906 9104 Z30.42 [id number] MD Candida Hoff (Adult Med) [address] [place] [address] 11/21/2024 09:46:49 12/02/2024 16:00:38 Mammography abnormal 030038777 R92.8 US 11/17/2024; Probable benign right breast massFollow up US in 6 monthsSurg ical opinion Note from 09/14/2024M MG 09/14/2024F ocal right asymmetryM MG +/- US needed Old notesMMGUS 12/08/2023 -ve OV 11/23/2023F ollow up US [...] NL but an US was recommende d Overweight in adulthood with body mass index of 25 or more but less than 30 658421238 E66.3 Z68.27 Serum crea tinine above reference range 199727268 R79.89 Overweight 928890503 E66 .3 Vitamin D deficiency 347 06013 E55.9 Health Concerns Section Related Observation LastModified by Organization Detai ls LastModified Time None Recorded Concern Status LastModified by Organization Details LastModified Time None Recorded Advance Directives Directive N: Payers Encounter Date Sequence Insurance Name Policy Number Policy Crawley Covered Member ID Crawley Member ID Guarantor Name 08/11/2024 1 [facility] [id number] Angie Shah [id number] Angie Shah 08/12/2024 1 [facility] [id number] Angie Shah [id number] Angie Shah 10/26/2024 1 [facility] [id number] Angie Shah [id number] Angie Shah 11/21/[address] [facility] [id number] Angie Shah [id number] Angie Shah Notes Date Note Type Note Provider Name and Address Organization Details Recorded Time 05/19/2024 text/html 44 yo F presenting for depot shot. No acute concerns or complaints at this time.Happy with the depot and want to continue Erika Ramírez MD Attn: Accounting,[address] [facility], [place], [address], [place] [facility] 05/29/2024 19:55:22 08/12/2024 text/html Phone visit due to the inclement weather. I was in the office It was my yearly Ms Shah is doing well, she was uninsured and unable to schedule her MMG. Ye Garcia MD Attn: Accounting,[address] [facility], [place], [address], [place] [facility] 08/12/2024 12:41:01 11/21/2024 text/html Ms Shah is doin g well, she does not take any OTC NSAIDS Ye Garcia MD Attn: Accounting,[address] [facility], [place], [address], [place] [facility] 11/21/2024 14:32:42 OBGyn Episode Ob Episode Information Episode Created Date Number of Fetuses Patient Bloodtype Patient rh Status Prepregnancy Weight lbs Domestic Partner Domestic Partner Phone Father Name Electric Cutter Operator Status 05/21/20 16 1 CLOSED Fetus Data First Name Last Name Admitted to NICU Weight (g) Sex Living Outcome Pediatric Complications Fetus ID Race Codes Race Delivery Type 2381.35 8 Full Term 56564 Vaginal Chapo Calculation Initial Chapo Date Initial [...] Complications Tubal Sterilization Discharge Date Comments 8 Regional- idural 40 24 Discharge Information Feeding Method Contraceptive Method Maternal HG B and HCT Levels Ob Episode Information Episode Created Date Number of Fetuses Patient Bloodtype Patient rh Status Prepregnancy Weight lbs Domestic Partner Domestic Partner Phone Father Name Electric Cutter Operator Status 05/21/20 16 1 CLOSED Fetus Data First Name Last Name Admitted to NICU Weight (g) Sex Living Outcome Pediatric Complications Fetus ID Race Codes Race Delivery Type 3401.94 Full Term 14041 Chapo Calculation Initial Chapo Date Initial Exam [...]
--- OUTSIDE RECORDS SUMMARY | 2024-12-12 08:59 | XMS_ITS | Data Portability ---
Author Organization [facility] [email or web address], Main Office Address [address] [place] [address] Care Team Providers Care Speech Correction Consultant Name Role Phone DENISE GARCIA Primary Care Provider [phone] DENISE GARCIA Referring Provider [phone] Assessment Encounter Date Assessment Date Assessment LastModified [...] DEYSI SERVI TE PERSO NNEL. Not Available [facility] (Lab) [address] [place], [address], 05/31/2021 09:44:34 05/31/20 21 05/31/2021 URINE HCG QUAL/ POINT OF CARE lot no. [id number] Not Available [facility] [place] [facility] (Lab) [address] [place], [address], 05/31/2021 09:44:34 05/31/20 21 05/31/2021 URINE HCG QUAL/ POINT OF CARE pos QC positi ve Not Available [facility] [place] [facility] (Lab) [address] [place], [address], 05/31/2021 09:44:34 05/31/20 21 05/31/2021 URINE HCG QUAL/ POINT OF CARE neg QC negati ve Not Available [facility] [place] [facility] (Lab) [address] [place], [address], 05/31/2021 09:44:34 06/17/20 21 07/02/2021 XR, foot, 3 or more view No observ ation record ed. [id number] [facility] [address], [address], [address], 10/01/2022 06:05:27 07/01/20 21 07/01/2021 XR, foot, 3 or more view No observ ation record ed. [id number] [facility] [address], [facility], [place], [address], 10/01/2022 06:05:27 07/15/20 21 07/15/2021 XR, foot, 3 or more view No observ ation record ed. [id number] [facility] [address], [facility], [place], [address], 10/01/2022 06:05:27 08/05/19 22 08/05/2021 XR, foot, 3 or more view No observ ation record ed. [id number] [facility] [address], [facility], [place], [address], 10/01/2022 06:05:27 Result Notes None recorded. Problems Name Problem SNOMED Code Status Onset Date Resolution Date Notes Provider Name and Address Organization Details Recorded Time Hammer toe 028004357 Active 2020 Not Available [facility] 3 05:58:39 Postoperat darrell visit 347081038 Active 2020 Not Available [facility] 3 05:58:39 Bunion 015338233 Active 2020 Not Available [facility] 3 05:58:39 Foot pain 74464506 Active 2020 Not Available [facility] 3 05:58:39 Cyst of left breast 9738417943862 9101 Active 2022 Mark gonsales MD [address], [address] , [facility] 3 12:58:38 Bilateral cyst of breasts 8090295751576 9102 Active 2022 Mark gonsales MD [address], [address] , [facility] 3 12:59:11 Problem Notes None recorded. Procedures Surgical History Date Name Laterality Status Provider Name and Address Organization Details Recorded Time section completed Katheryn Finnegan MA [facility] 06/11/2023 10:40:19 excision of bunion completed Katheryn Finnegan MA [email or web address] 06/11/2023 10:40:38 Imaging Results Imaging Date Name Status LastModified by Organiz ation Details LastModified Time 07/02/2021 XR, foot, 3 or more view completed [id number] [facility] [address] [place] [address], [place], [address], 10/01/2022 06:05:27 07/01/2021 XR, foot, 3 or more view completed [id number] [facility] [address] [address], [place], [address], 10/01/2022 06:05:27 07/15/2021 XR, foot, 3 or more view completed [id number] [facility] [address], [facility], [place], [address], 10/01/2022 06:05:27 08/05/2021 XR, foot, 3 or more view completed [id number] [facility] [address], [facility], [place], [address], 10/01/2022 06:05:27 Procedure Notes None recorded. Medical [...] Date Recorded Body mass index (BMI) Body height Heart rate Body weight Systolic blood pressure Diastolic blood pressure Provider Name and Address Organization Details Last Updated DateTime 1 23.2 kg/m2 162.56 cm 69 /min 26085.9 7 g 122 mm[Hg] 84 mm[Hg] Not Available [facility] 3 05:57:44 Date Recorded Body mass index (BMI) Body height Heart rate Body weight Systolic blood pressure Diastolic blood pressure Provider Name and Address Organization Details Last Updated DateTime 1 23.2 kg/m2 162.56 cm 71 /min 00581.9 7 g 137 mm[Hg] 86 mm[Hg] Not Available [facility] 3 05:57:45 Date Recorded Body mass index (BMI) Body height Heart rate Body weight Systolic blood pressure Diastolic blood pressure Provider Name and Address Organization Details Last Updated DateTime 1 23.2 kg/m2 162.56 cm 76 /min 84984.9 7 g 126 mm[Hg] 83 mm[Hg] Not Available [facility] 3 05:57:45 Date Recorded Body height Heart rate Systolic blood pressure Diastolic blood pressure Provider Name and Address Organization Details Last Updated DateTime 08/05/2021 162.56 cm 89 /min 136 mm[Hg] 88 mm[Hg] Not Available [facility] 10/01/2022 05:57:45 Date Recorded Body height Body mass index (BMI) Body weight Provider Name and Address Organization Details Last Updated DateTime 06/11/2023 157.48 cm 25.2 kg/m2 81149.75 g Katheryn Finnegan MA [facility] 06/11/2023 10:45:54 Date Recorded Respiratory rate Heart rate Body temperature Oxygen saturation Oxygen saturation in Arterial blood by Pulse oximetry Systolic blood pressure Diastolic blood pressure Provider Name and Address Organization Details Last Updated DateTime 3 14 /min 72 /min 97.7 [degF] 98 % 98 % 160 mm[Hg] 90 mm[Hg] Monts[place]at [place] [employer] 3 11:10:57 Social History Question Answer Notes LastModified by Organizat ion Details LastModified Time Tobacco Smoking Status Never Smoker Not Available [facility] 10/01/2022 05:53:19 What Is Your Level Of Caffeine Consumption? Occasional Information not available 06/11/2023 What Type Of Diet Are You Following? REGULAR Information not available 06/11/2023 Are There Any Guns Present In Your Home? No [facility] Information not available 06/11/2023 How Many Children Do You Have? 2 Information not available 06/11/2023 What Is Your Relationship Status? Single [facility] Information not available 06/11/2023 Do You Have Smoke And Carbon Monoxide Detectors In Your Home? Yes [facility] Information not available 06/11/2023 Are You Passively Exposed To Smoke? No [facility] Information no t available 06/11/2023 Do You Use Sunscreen Routinely? No Information not available 06/11/2023 Do You Have Any Dietary Restrictions? No [facility] Information not available 06/11/2023 Sex: Unknown Functional Status Question Answer Note LastModified by Organizat ion Details LastModified Time Do you use any illicit or recreational drugs? No [place] [address] Information not available 06/11/2023 What is your level of alcohol consumption? None [id number] Information not available 10/01/2022 What is your exercise level? Occasional [facility] Information not available 06/11/2023 Mental Status None recorded. Family History Relationship Description Onset Age of this Age Resolved Age Notes LastModified by Organization Details LastModified Time Maternal Grandmother Diabetes mellitus [place] [address] Not available 2022 10:43:20 Maternal Aunt Carcinoma in situ of colon [facility] Not available 2022 10:44:12 Medical History Condition Response ARTHRITIS Y Gynecological HistoryNo gynecological history recorded. Obstetrics History GPAL:G 0 P 0 0 0 0 Past Encounters Encounter ID Performer Location Encounter Start Date Encounter Closed Date Diagnosis/Indication Diagnosis SNOMED-CT Code Diagnosis ICD10 Code Diagnosis Note [id number] Benjamin Rodríguez DPM [facility] [place] [address] [place] [address] [id number] 0 12/17/2020 00:00:00 12/17/2020 12:04:06 [id number] Benjamin Rodríguez DPM [facility] [place] [address] [place] [address] [phone] 0 01/10/2021 00:00:00 01/10/2021 11:57:50 [id number] Benjamin Rodríguez DPM [facility] [place] [address] [place] [address] [phone] 0 01/31/2021 00:00:00 02/17/2021 20:08:05 [id number] [facility] [address] [place] [address] [phone] 0 05/06/2021 00:00:00 05/13/2021 07:11:51 [id number] Benjamin Rodríguez DPM _ATHENA_M IGRATION_ DEFAULT_1 _1 , 06/03/2021 00:00:00 06/03/2021 15:08:12 [id number] Benjamin Rodríguez DPM [facility] [place] [address] [place] [address] [id number] 0 06/10/2021 00:00:00 06/10/2021 10:39:43 [id number] Benjamin Rodríguez DPM [facility] [place] [address] [place] [address] [phone] 0 06/17/2021 00:00:00 07/02/2021 20:27:44 [id number] Benjamin Rodríguez DPM [facility] [place] [address] [place] [address] [phone] 0 07/01/2021 00:00:00 07/01/2021 10:26:20 [id number] Benjamin Rodríguez DPM [facility] [place] [address] [place] [address] [id number] 0 07/15/2021 00:00:00 07/15/2021 10:08:21 [id number] Benjamin Rodríguez DPM [facility] [place] [address] [place] [address] [id number] 0 08/05/2021 00:00:00 08/05/2021 12:15:27 [id number] Mark gonsales MD [facility] [address] [place] [address] [id number] 1 06/11/2023 10:35:35 06/11/2023 14:47:46 Bilateral cyst of breasts 0988209683 9547643 N60.01 N60.02 Health Concerns Section Related Observation LastModified by Organization Detai ls LastModified Time None Recorded Concern Status LastModified by Organization Details LastModified Time None Recorded Advance Directives Directive None Recorded Payers Encounter Date Sequence Insurance Name Policy Number Policy Crawley Covered Member ID Crawley Member ID Guarantor Name 06/11/2023 1 [facility] (MEDICAID HMO) [id number] Angie Shah [id number] Angie Shah Notes Date Note Type Note Provider Name and Address Organization Details Recorded Time 06/11/2023 text/html patient referred by primary care physician for presumably abnormal breast ultrasound and or mammogram. Patient denies any lumps or bumps. Denies any family history of breast cancer. Denies any previous biopsies. Denies any breast pain Mark Hernandez MD [address] [place] [address], [place], [address], [place] [employer] [facility] 06/11/2023 12:59:29 OBGyn Episode No OBEpisode recorded.
--- OUTSIDE RECORDS SUMMARY | 2024-12-12 08:59 | XMS_ITS | Clinical Summary ---
Author Organization [facility] Address [address] [place] [address] Care Team Providers Care Loss Prevention Associate Name Role Phone Ye Hargrove MD Primary [...] on file Legal Sex Female 8:53 PM MANUFACTURING BUSINESS ANALYST Gender Identity Not on file Sexual Orientation Not on file Obstetrics History Last Filed Vital Signs Vital Sign Reading Time Taken Comments Blood Pressure 130/92 07/02/2023 1:00 PM MANUFACTURING BUSINESS ANALYST Pulse 82 07/02/2023 1:00 PM MANUFACTURING BUSINESS ANALYST Temperature 36.8 C (98.3 F) 07/02/2023 12:30 PM MANUFACTURING BUSINESS ANALYST Respiratory Rate 18 07/02/2023 1:00 PM MANUFACTURING BUSINESS ANALYST Oxygen Saturation 97% 07/02/2023 1:00 PM MANUFACTURING BUSINESS ANALYST Inhaled Oxygen Concentration - - Weight 64 kg (141 lb) 07/02/2023 8:44 AM MANUFACTURING BUSINESS ANALYST Height 162.6 cm (5' 4 ) 07/02/2023 8:44 AM MANUFACTURING BUSINESS ANALYST Body Mass Index 24.2 07/02/2023 8:44 AM MANUFACTURING BUSINESS ANALYST Plan of Treatment Health Maintenance Due [...] patient's age to complete this topic Insurance [facility] Care Teams Loss Prevention Associate Relationship Specialty Start Date End Date Ye Hargrove MD [address] [place] [address] PCP - General Internal Medicine 05/01/23
--- OUTSIDE RECORDS SUMMARY | 2024-12-12 08:59 | XMS_ITS | Referral Summary ---
Author Organization [facility] Address [address] [place] [address] Care Team Providers Care Estimator Project Manager Name Role Phone Ye Hargrove MD Primary [...] on file Legal Sex Female 8:53 PM BILINGUAL KINDERGARTEN TEACHER Gender Identity Not on file Sexual Orientation Not on file Last Filed Vital Signs Vital Sign Reading Time Taken Comments Blood Pressure 130/92 07/02/2023 1:00 PM BILINGUAL KINDERGARTEN TEACHER Pulse 82 07/02/2023 1:00 PM BILINGUAL KINDERGARTEN TEACHER Temperature 36.8 C (98.3 F) 07/02/2023 12:30 PM BILINGUAL KINDERGARTEN TEACHER Respiratory Rate 18 07/02/2023 1:00 PM BILINGUAL KINDERGARTEN TEACHER Oxygen Saturation 97% 07/02/2023 1:00 PM BILINGUAL KINDERGARTEN TEACHER Inhaled Oxygen Concentration - - Weight 64 kg (141 lb) 07/02/2023 8:44 AM BILINGUAL KINDERGARTEN TEACHER Height 162.6 cm (5' 4 ) 07/02/2023 8:44 AM BILINGUAL KINDERGARTEN TEACHER Body Mass Index 24.2 07/02/2023 8:44 AM BILINGUAL KINDERGARTEN TEACHER Plan of Treatment Not on file Insurance [facility] Member Subscriber Plan / Payer (Ef fective 2023-Present) Name:Angie Shah Relation to Subscriber:Self Name:Angie Shah Payer ID:[id number] (NAIC) Group ID:Not on file Type:MEDICAID RISK OTHER Address: [address] [address] [facility] Member Subscriber Plan / Payer (Ef fective 2023-Present) Name:Angie Shah Relation to Subscriber:Self Name:Angie Shah Payer ID:[id number] (NAIC) Group ID:Not on file Type:MEDICAID RISK OTHER Address: [address] [address] Care Teams Estimator Project Manager Relationship Specialty Start Date End Date Ye Hargrove MD [address] [address] PCP - General Internal Medicine 05/01/23
== END 2024-12-12 08:53 | disposition home or self-care (01) ==
PROVIDERS: PCP Internal Medicine Infectious Disease; Visit Provider Internal Medicine Infectious Disease
DX: R79.89 Other specified abnormal findings of blood chemistry (principal)
CPT/HCPCS: 76775